=== PATIENT | male | born 1955 | race Caucasian/White ===

== ENCOUNTER 2020-03-29 14:53 | Emergency (ER) | payer OTHER, SELFPAY ==
[2020-03-29 14:55] VITALS: BP 148/78; PULSE 88; RESP 18; TEMP 36.5; O2SAT 98; BMI 24.8
--- NOTE | 2020-03-29 15:12 | ED.VISSUMM ---
- ER Visit Summary Date of Service: 03/29/20 Chief Complaint: Left hand laceration History of Present Illness: The patient is a 64 M who presents with laceration to his left hand that occurred today. Patient was walking in the [place] when he slipped on wet grass and fell. Patient landed on a piece of elva metal. Patient thinks there is still a piece of metal in the laceration. Patient states his attempted to remove some of it without success. Patient denies any paresthesias or weakness. Patient thinks his last tetanus shot was around 5 to 6 years ago. Patient states the bleeding stopped after a few minutes of pressure. Physical Examination: Vital signs are stable. Patient is afebrile. Patient is in no acute distress. Skin is warm and dry. There is a 2 cm full-thickness linear laceration on the palmar aspect of the left hand near the hyperthenar eminence. There is moderate gapping of the wound margins. There is no active bleeding. There are 2 other superficial abrasions on the palmar aspect of the left hand. There is no bleeding. There is no gapping of those wound margins. Sensation was intact to light touch in all digits. Capillary refill was less than 2 seconds in all digits. Radial pulses are equal bilaterally. Test Results: X-rays of the left hand were obtained. There is metallic foreign body noted on the palmar aspect of the left hand. There is no acute fracture. This was interpreted by myself and the radiologist. Emergency Department Course and Treatment: Patient was given a tetanus booster. The wound was cleaned and irrigated with copious amounts of normal saline. The wound was anesthetized with 1% plain lidocaine locally. The wound was explored. There were some metallic foreign bodies removed. Patient was advised that there still may be some foreign bodies in the wound. Patient was advised that these may work themselves out or there may be some fibrosis around these foreign bodies and they may remain in place. The wound was irrigated more. The wound was closed with 2 loose simple interrupted #4 -0 nylon sutures under sterile technique. Patient tolerated the procedure well. Bacitracin dressing was applied. Patient was given a dose of clindamycin here. Patient was given a prescription for clindamycin. Patient was instructed to keep the hand clean. Patient was instructed to follow-up with his primary care physician in 7 days for wound recheck and suture removal. Patient understood and was agreeable with the plan. All questions were answered. Disposition: Discharge home Impression: 1. Left hand laceration 2. Foreign body left hand This note was generated with [employer] dictation software. It may contain incorrect words, spelling, and punctuation that were not noted in review of the chart prior to signing ED Disposition - Plan for ED Patient: Disposition: Home or Assisted Living Diagnosis: Laceration of left hand, Foreign body of left hand Instructions: ED Laceration Hand Prescriptions: Clindamycin HCl [Cleocin] 300 mg PO Q6H #40 cap Prescription Printed Referrals: Leroy Celaya III, MD [Primary Care Provider] - 7 Days for suture removal
[2020-03-29] MEDS: Diphth,Pertuss(Acell),Tet Vac 0.5 ML Vial IM (15:38)
[2020-03-29] MEDS: BACITRACIN 15 GM Tube 1 APPLIC TOPICAL (15:39)
--- NOTE | 2020-03-29 15:45 | RAD_ITS ---
STUDY: X-RAY - LEFT HAND REASON FOR EXAM: Male, 64 years old. 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 COMPARISON: None. FINDINGS: Normal radiocarpal articulation. Normal distal radioulnar joint. Normal visualized carpal bones. Normal carpal articulations Normal carpometacarpal articulation of the thumb. Normal second through fifth carpometacarpal joints. Normal metacarpi. Normal metacarpophalangeal joint of the thumb. Normal interphalangeal joint of the thumb. Normal proximal and distal phalanges of the thumb. Normal metacarpophalangeal joints of the second through fifth fingers. Normal proximal and distal interphalangeal joints of the second through fifth fingers. Normal phalanges of the second through fifth fingers. A cluster of metallic foreign bodies are present in the palmar soft tissues at the level of the base of the fourth metacarpal. RAD/Hand Min 3 Views IMPRESSION: A cluster of metallic foreign bodies are present in the palmar soft tissues at the level of the base of the fourth metacarpal. No acute osseous injury is evident. Electronically Signed: Blane Motley MD at 17:01 EDT Tel , Service support ,
[2020-03-29 17:05] VITALS: RESP 18; O2SAT 98
--- OUTSIDE RECORDS SUMMARY | 2020-08-27 11:27 | XMS RPT_ITS | CCD ---
:1955 External Reference #:[id number] Author Organization [facility] [employer] Care Team Providers Name Role Phone Unavailable Unavailable Unavailable Results Result Name Value Range Unit Interpretation Flag Date Location progress on 2020-03 PROGRESS HNO ID: [id number] Normal 04-05-2020 [facility] Author: Leroy Saxena III Haiku ([id number]) Service: ? Author Type: Physician Type: Progress Notes Filed: 04/05/2020 9:27 AM Note Text: SUBJECTIVE: This is a 64 year old male that is here today fo r 1. f/u of laceration L hypothenar eminence from puncture wou nd from falling on elva metal on 03/29. Received tetanus booster and antibiotic. PAST MEDICAL HISTORY Diagnosis Date - Esophageal reflux - Mitral regurgitation 01/28/2012 - Mitral valve disorders(424.0) - Polyarticular juvenile rheumatoid arthritis, chronic or un specified - Snoring Current Outpatient Medications on File Prior to Visit Medication Sig - Benzonatate 200 mg capsule Take 1 capsule by mouth three t imes daily as needed. (Patient not taking: Reported on 04/05/2020 ) - albuterol HFA (PROAIR HFA) 90 mcg/actuation inhaler Inhale 2 Puffs as instructed every 4 hours as needed. No current facility-administered medications on file prior t o visit. FAMILY HISTORY Problem Relation Age of Onset - Diabetes Father - Stroke Father - other ([place]) Father - Arthritis Mother - Developmental problem Paternal Grandfather Social History Tobacco Use - Smoking status: Current Every Day Smoker Packs/day: 0.50 Years: 20.00 Pack years: 10.00 Types: Cigarettes Last attempt to quit: 04/11/2012 Years since quittin.9 - Smokeless tobacco: Never Used Substance Use Topics - Alcohol use: Yes Comment: twice a week - Drug use: No BP 144/86 (BP Site: Right Arm, BP Position: Sitting, BP Cuff Size: Regular Adult) Pulse 76 Temp 36.7 ?C (98.1 ?F) (Tympanic ) Resp 14 Wt 85.7 kg (189 lb) BMI 24.94 kg/m? . OBJECTIVE: APPEARANCE Well appearing, alert, in no acute distress, well -hydrated, well nourished. EXTREMITIES L palm-normal color and good circulation. Good h ealing of wound w/o redness or tenderness. 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 Small L olecranon bursa ASSESSMENT: laceration L palm--healed no evidence of infection PLAN: sutures removed--tolerated well Leroy Saxena III MD cnov on 2020-04-05 CNOV Office Visit (FAMPWS) Normal 04-05-20 [facility] LUZ MARIA CASTANO ([id number]) 1955 [facility] Date Time Provider Department ([id number]) 04/05/20 9:00 AM LEROY SAXENA III FAMPWS During your visit today, we recorded the following informati on about you: Temperature Pulse Respiration Blood pressure 98.1 degrees 76/minute 14/minute 144/86 Weight 85.7 kg Leroy Saxena III MD 04/05/2020 9:27 AM Signed SUBJECTIVE: This is a 64 year old male that is here today fo r 1. f/u of laceration L hypothenar eminen ce from puncture wound from falling on elva metal on 03/29. Received tetanus booster and antibiotic . PAST MEDICAL HISTORY Diagnosis Date - Esophageal reflux - Mitral regurgitation 01/28/2012 - Mitral valve disorders(424.0) - Polyarticular juvenile rheumatoid arthritis, chronic or un specified - Snoring Current Outpatient Medications on File Prior to Visit Medication Sig - Benzonatate 200 mg capsule Take 1 capsule by mouth three t imes daily as needed. (Patient not taking: Reported on 04/05/2020 ) - albuterol HFA (PROAIR HFA) 90 mcg/actuation inhaler Inhale 2 Puffs as instructed every 4 hours as needed. No current facility-administered medications on file prior t o visit. FAMILY HISTORY Problem Relation Age of Onset - Diabetes Father - Stroke Father - other ([place]) Father - Arthritis Mother - Developmental problem Paternal Grandfather Social History Tobacco Use - Smoking status: Current Every Day Smoker Packs/day: 0.50 Years: 20.00 Pack years: 10.00 Types: Cigarettes Last attempt to quit: 04/11/2012 Years since quittin.9 - Smokeless tobacco: Never Used Substance Use Topics - Alcohol use: Yes Comment: twice a week - Drug use: No BP 144/86 (BP Site: Right Arm, BP Position: Sitting, BP Cuff Size: Regular Adult) Pulse 76 Temp 36.7 ?C (98.1 ?F) (Tympanic) Resp 14 Wt 85.7 kg (189 lb) BMI 24.94 kg/m? . OBJECTIVE: APPEARANCE Well appearing, alert, in no acute distress, we ll-hydrated, well nourished. EXTREMITIES L palm-normal co aaliyah and good circulation. Good healing of wound w/o redness or tenderness. 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 Small L olecranon bursa ASSESSMENT: laceration L palm--healed no evidence of infection PLAN: sutures removed--tolerated well YADIRA Figueroa MD, III MD 04/05/2020 9:25 AM Signed PLAN: sutures removed--tolerated well Leroy Saxena III MD Referring Provider: SELF [[id number]] Allergies As of Date: 04/05/2020 Noted Allergy Reaction LESCOL (FLUVASTATIN SODIUM) 08/17/2005 Comments: Leg and muscle aches LIPITOR (ATORVASTATIN CALCIUM) 08/17/2005 Comments: Leg and muscle aches NIACIN 03/27/2013 14 - Other: See Comments Comments: past out PENICILLINS 08/17/2005 Date Reviewed: 04/05/2020 Reviewed by: Charlotte Velazquez Ma - Fully Assessed Reason for Visit: Suture Removal [105] Mass [64] Cmt: Patient indicated that he had a lump on lef t elbow x 1 month Primary Visit Diagnosis:Laceration of left hand with foreign body, subsequent encounter [S61.422D] Prescriptions as of 04/05/2020 Sig: BENZONATATE 200 MG CAPSULE Take 1 capsule by mouth three* Patient not taking: Reported on 04/05/2020 ALBUTEROL SULFATE HFA 90 MCG/* Inhale 2 Puffs as instructed * Problem List As Of Date 04/05/2020 Noted Resolved ESOPHAGEAL REFLUX [K21.9] MITRAL VALVE DISORDER [I05.9] DYSMETABOLIC SYNDROME X [E88.81] 08/02/2007 TOBACCO USE DISORDER [F17.200] 08/02/2007 HYPERLIPIDEMIA NEC/NOS [E78.5] 09/09/2007 ENTHESOPATHY, SITE NOS [M77.9] 12/26/2008 Mitral regurgitation [I34.0] 01/28/2012 Epididymitis [N45.1] 04/13/2013 Testalgia [N50.819] 04/13/2013 BPH (benign prostatic hyperplasia) [N40.0] 04/13/2013 Nocturia [R35.1] 04/13/2013 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 This clinical summary was aggregated from multiple sources. Caution should be exercised in using it in the provision of clinical care. This summary normalizes information from multiple sources, and as a consequence, information in this document may materially changethe coding, format and clinical context of patient data. In addition, data may be omittedin some cases. CLINICAL DECISIONS SHOULD BE BASED ON THE PRIMARY CLINICAL RECORDS. [facility] provides no warranty or guarantee of the accuracy or completeness of information in this document. UNRECOGNIZED CONTENT PROVIDED BELOW FOR UNRECOGNIZED SECTION No Status Records Found UNRECOGNIZED CONTENT PROVIDED BELOW FOR UNRECOGNIZED SECTION INFORMATION SOURCE DATE CREATED AUTHOR AUTHOR'S ORGANIZATIO N 04/05/2020 [facility] elizabeth
--- OUTSIDE RECORDS SUMMARY | 2020-08-27 11:29 | XMS RPT_ITS | CCD ---
:1955 External Reference #:[id number] Author Organization [facility] [employer] Care Team Providers Name Role Phone Unavailable Unavailable Unavailable Results Result Name Value Range Unit Interpretation Flag Date Location progress on 2020-03 PROGRESS HNO ID: [id number] Normal 04-05-2020 [facility] Author: Leroy Saxena III Rudy ([id number]) Service: ? Author Type: Physician Type: Progress [...] Diabetes Father - Stroke Father - other ([place]) Father - Arthritis Mother - Developmental problem [...] of wound w/o redness or tenderness. 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 [facility] provides no warranty or guarantee of the accuracy or completeness of information in this document. UNRECOGNIZED CONTENT PROVIDED BELOW FOR UNRECOGNIZED SECTION No Status Records Found UNRECOGNIZED CONTENT PROVIDED BELOW FOR UNRECOGNIZED SECTION INFORMATION SOURCE DATE CREATED AUTHOR AUTHOR'S ORGANIZATIO N 04/05/2020 [facility] elizabeth
== END 2020-03-29 16:45 | disposition home or self-care (01) ==
LOC: ED 16:11
PROVIDERS: Emergency Provider Emergency Medicine; PCP Family Medicine
DX: S61.422A Laceration with foreign body of left hand, initial encounter (principal); S60.512A Abrasion of left hand, initial encounter; W01.0XXA Fall on same level from slipping, tripping and stumbling without subsequent striking against object, initial encounter; Y93.01 Activity, walking, marching and hiking; Y92.9 Unspecified place or not applicable; F17.200 Nicotine dependence, unspecified, uncomplicated
CPT/HCPCS: 12001; 73130; 90471; 90715; 99283

== ENCOUNTER 2024-09-11 17:30 | Outpatient (RCR) | payer SELFPAY | END 2024-09-14 23:59 | LOC: NS 17:30 | DX: Z71.3 Dietary counseling and surveillance (principal) ==

== ENCOUNTER 2024-12-17 12:51 | Inpatient (IN) | payer MEDICARE, OTHER, SELFPAY ==
[2024-12-17] VITALS (16 sets, daily range): BP systolic 99–145; BP diastolic 63–126; PULSE 90–106; RESP 16–30; TEMP 36.1–37.7; O2SAT 81–97; BMI 25.7; BMI 25.0
--- NOTE | 2024-12-17 13:39 | EKG12_ITS ---
Test Reason : GENERAL Blood Pressure : */* mmHG Vent. Rate : 108 BPM Atrial Rate : 108 BPM P-R Int : 200 ms QRS Dur : 88 ms QT Int : 326 ms P-R-T Axes : 75 -28 60 degrees QTcB Int : 436 ms Sinus tachycardia with occasional atrial-paced complexes and Premature atrial complexes Low voltage QRS Possible Inferior infarct , age undetermined Abnormal ECG Confirmed by VALENTINA VAZQUEZ, ALLY ([id number]), editor managing newspaper RISA CHAO ([id number]) on 12/18/2024 8:22:19 AM Referred By: Isai Leal Confirmed By: ALLY MONTGOMERY MD
--- NOTE | 2024-12-17 13:43 | EX.ED.DYSGE1 ---
HPI History of Present Illness Chief Complaint: General Illness Narrative Narrative: Chief complaint and HPI: Flulike symptoms. 69-year-old male with past medical history of HTN presents for evaluation of flulike symptoms. Symptom onset Wednesday. Patient endorses sore throat, general malaise, cough, decreased p.o. intake, diarrhea, and generalized weakness. He denies any fever, chills, chest pain, shortness of breath, abdominal pain, vomiting, dysuria. Review of systems: See HPI Medications: As listed on the chart Allergies: As listed on the chart PFSH: Per chart Vital signs: As listed on the chart. Reviewed. Physical exam: Gen: A&O x3, NAD Head: Normocephalic, atraumatic Eyes: No sclera icterus, conjunctiva clear ENT: dry mucous membranes Neck: Trachea midline, No JVD CV: RRR, no murmurs, no peripheral edema Resp: Lungs CTA BL, no w/r/c GI: Abd soft, non-distended, non-tender, no r/r/g Musc: Full ROM, no deformity Skin: Warm, dry Neuro: Alert, oriented, grossly intact, sensation intact Psych: Cooperative, appropriate mood and affect PFS PFS Home Medications ?Medication ?Instructions ?Recorded ?Last Taken ?Type clindamycin HCl 300 mg capsule 300 mg PO Q6H #40 caps 03/29/20 Unknown Rx Allergy/AdvReac Type Severity Reaction Status Date / Time Penicillins Allergy Unknown Verified 12/17/24 12:58 Nzhyqxw-UZT-AbE Reductase Allergy Other Verified 12/17/24 12:58 Inhibitor (Wqncspk-Neg-Dbw Reductase Inhibitor) Social History Smoking Status: Current every day smoker tobacco type: cigarettes EXAM Physical Exam Const Vital Signs: 12/17/24 12:52 12/17/24 14:16 12/17/24 14:27 Temperature 97 F L 99.5 F H Temperature Source Temporal Oral Pulse Rate 94 106 H Respiratory Rate 20 H 28 H Respiratory Effort Blood Pressure 145/126 H 119/71 Blood Pressure Mean 132 87 Pulse Ox 90 83 91 Oxygen Delivery Method Room Air Room Air Nasal Cannula Oxygen Flow Rate (L/min) 4 12/17/24 14:29 Temperature Temperature Source Pulse Rate Respiratory Rate Respiratory Effort Normal Non-Labored Blood Pressure Blood Pressure Mean Pulse Ox Oxygen Delivery Method Oxygen Flow Rate (L/min) MDM MDM MDM Narrative Medical decision making narrative: 69-year-old male with past medical history of HTN presents for evaluation of flulike symptoms. Differential diagnosis includes but is not limited to influenza, COVID-19, viral illness, electrolyte abnormality, dehydration. NS bolus and Zofran ordered. Laboratory workup ordered including chest x-ray. I do not think any further imaging is needed at this time. EKG reviewed see below. CMP shows hypokalemia 131, hypokalemia of 3.3 and JOSÉ MANUEL with creatinine of 3.94. Another NS bolus ordered. Hunter placed. AST elevated at 107. Magnesium level unremarkable. Chest x-ray reviewed with concern for pneumonia. Patient has allergy to penicillin, Levaquin ordered. Patient positive for influenza A. Tamiflu ordered. Patient requiring 4 L nasal cannula after decreasing to 83% on room air. UA positive for nitrites and leuk esterase but negative for bacteria or WBC. CBC with pancytopenia, I do not have previous labs to compare to. Will add on coagulation panel, lactic acid, blood cultures. Patient and family updated of all the results. Patient will warrant admission. They confirmed understanding the plan. Patient's temperature increasing to 99.5 ?F. Tylenol ordered. Patient admitted to the hospital service. EKG: Interpreted by me/EM physician: EKG shows sinus tachycardia with PACs. No acute ischemic changes. Heart rate 108. Diagnostic: Interpreted by me/EM physician: Chest x-ray shows right lobe opacity. Concern is for pneumonia. No pneumothorax. Impression: 1. Influenza A infection 2. Possible pneumonia 3. JOSÉ MANUEL 4. Pancytopenia 5. Acute hypoxia secondary to #1 and 2 Lab Data Labs: Laboratory Results - last 24 hr 12/17/24 12/17/24 14:10 14:49 WBC 4.0 L RBC 4.04 L Hgb 11.9 L Hct 35.8 L MCV 88.6 MCH 29.5 MCHC 33.2 RDW Std Deviation 46.8 H RDW Coeff of Whit 14.4 Plt Count 101 L MPV 10.6 Immature Gran % (Auto) 0.800 Neut % (Auto) 81.3 H Lymph % (Auto) 12.1 L King % (Auto) 4.0 Eos % (Auto) 0.0 Baso % (Auto) 1.8 H Absolute Neuts (auto) 3.2 Absolute Lymphs (auto) 0.48 L Nucleated RBC % 0 Toxic Granulation 1+ Dohle Bodies 1+ Platelet Estimate SLT DEC Polychromasia 1+ Sodium 131 L Potassium 3.3 L Chloride 97 L Carbon Dioxide 21.0 Anion Gap 13 BUN 68 H Creatinine 3.94 H Estim Creat Clear Calc 20.28 Est GFR (MDRD) Af Amer 20 L Est GFR (MDRD) Non-Af 16 L BUN/Creatinine Ratio 17.3 Glucose 92 Calcium 8.8 Magnesium 2.2 Total Bilirubin 0.70 AST 107 H ALT 42 Alkaline Phosphatase 63 Total Protein 7.8 Albumin 3.1 L Globulin 4.7 H Albumin/Globulin Ratio 0.7 L Urine Color Chrissy Urine Clarity Cloudy Urine pH 5.0 Ur Specific [place] 1.030 Urine Protein 100 H Urine Glucose (UA) Normal Urine Ketones 5 H Urine Occult Blood 150 H Urine Nitrite Positive H Urine Bilirubin 1 H Urine Urobilinogen 1 H Ur Leukocyte Esterase 25 H Urine RBC 0-5 SEEN Urine WBC 0-5 SEEN Ur Squamous Epith Cells 0 SEEN Amorphous Sediment 2+ URATE Urine Bacteria 0 SEEN Urine Mucus 0 SEEN Radiography Diagnostic Testing: Clinical Impression(s) from Imaging Studies Chest X-Ray 12/17/24 14:25 IMPRESSION: As above. Reading Location: [facility] Discharge Plan Triage Chief Complaint: General Illness ED Provider: Isai Leal Dx/Rx/DC Orders Prescriptions: No Action clindamycin HCl 300 MG capsule 300 mg PO Q6H Qty: 40 0RF Primary Care Provider: NOT,DEFINED Referrals: NOT,DEFINED [Primary Care Provider] - Print Language: Cuban
[2024-12-17] MEDS: 0.9% Normal Saline (1000mL) 1,000 ML 1000 ML IV (14:11)
[2024-12-17 14:16] LABS: Absolute Lymphocyte Count 0.48 X10^3/uL (0.83-4.51); Absolute Neutrophil Count 3.2 X10^3/uL (2.0-7.7); Basophil# 0.07 X10^3/uL; Basophil% 1.8 % (0-1); Hematocrit 35.8 % (40-54); Hemoglobin 11.9 g/dL (13.0-16.5); Lymphocyte # 0.48 X10^3/ul (0.83-4.51); Lymphocyte % 12.1 % (19-41); Mean Corp Hgb Conc 33.2 g/dL (32-36); Mean Corpuscular Hgb 29.5 pg (27.0-32.0); Mean Corpuscular Volume 88.6 fL (80-94); Mean Platelet Vol. 10.6 fl (6.2-12.0); Monocyte# 0.16 X10^3/uL; NRBC Flagged by Analyzer 0 % (0-5); Neutrophil # 3.22 X10^3/uL (2.7-7.7); Neutrophil % 81.3 % (47-70); POSITIVE DIFFERENTIAL YES; POSITIVE MORPHOLOGY YES; Platelet Count 101 K/mm3 (150-450); RBC Distribution Width CV 14.4 % (11.6-14.6); RBC Distribution Width SD 46.8 fl (35.1-43.9); Red Blood Count 4.04 M/mm3 (4.6-6.2)
--- NOTE | 2024-12-17 14:25 | RAD_ITS ---
PROCEDURE: CHEST PA AND LATERAL REASON FOR EXAM: Cough TECHNIQUE: Single frontal image including the chest and abdomen. COMPARISON: None. FINDINGS: Prominent heterogeneous airspace opacities throughout the right mid to lower lung zone. Left lung grossly clear. Heart size is enlarged, nonspecific. No pneumothorax. RAD/Chest PA and Lateral IMPRESSION: As above. Reading Location: [facility]
[2024-12-17 14:30] LABS: ALB/GLOB Ratio 0.7 RATIO (0.9-2.4); AST(SGOT) 107 U/L (15-37); Alanine Aminotransfer ALT/SGPT 42 U/L (16-61); Albumin, Serum 3.1 g/dL (3.2-5.0); Alkaline Phosphatase 63 U/L (45-117); Anion Gap 13 (5-15); BUN 68 mg/dL (7-18); BUN/Creat Ratio 17.3 RATIO (10-20); Calcium,Total 8.8 mg/dL (8.5-10.1); Chloride 97 mmol/L (98-107); Creatinine, Serum 3.94 mg/dL (0.70-1.30); EST Glomerular Filtration Rate 16 mL/min (>60); Est Glom Filt Rate - Afr Amer 20 mL/min (>60); Estimated Creatinine Clearance 20.28 ml/min; Globulin 4.7 g/dL (2.2-4.2); Glucose 92 mg/dL (74-106); Magnesium 2.2 mg/dL (1.6-2.6); Potassium 3.3 mmol/L (3.5-5.1); Protein, Total 7.8 g/dL (6.4-8.2); Sodium Level 131 mmol/L (136-145)
[2024-12-17 14:41] LABS: Differential Indicated SCAN CRITERIA MET
[2024-12-17 14:42] LABS: Dohle Bodies 1+; Polychromasia 1+; Toxic Granulation 1+
[2024-12-17 14:43] LABS: Platelet Estimate SLT DEC (ADEQ)
[2024-12-17 14:54] LABS: Bacteria 0 SEEN /hpf (None Seen); Mucous, Urine 0 SEEN /hpf (<or=2+); Squamous Epithelial Cells - UA 0 SEEN /hpf (0-5)
[2024-12-17 14:58] LABS: Color, Urine Amber (Yellow); Glucose, Dipstick Normal (Normal); Ketone-Dipstick 5 mg/dl (Negative); Leukocyte Esterase-Dipstick 25 /ul (Negative); Nitrite-Dipstick Positive (Negative); Occult Blood-Urine 150 /ul (Negative); Protein-Dipstick 100 mg/dl (Negative); Urine Bilirubin Dipstick 1 mg/dL (Negative); Urine Clarity Cloudy (Clear); Urine Urobilinogen 1 mg/dl (Normal)
[2024-12-17 15:06] LABS: Red Blood Cells-Urine 0-5 SEEN /hpf (0-5); White Blood Cells 0-5 SEEN /hpf (0-5)
[2024-12-17 15:07] LABS: Amorphous Sediment 2+ URATE
--- NOTE | 2024-12-17 15:17 | HP.PCM.HOS_ITS ---
HPI - General General Date of Admission: 12/17/24 Date of Service: 12/17/24 Chief Complaint: Flulike symptoms HPI Narrative LUZ MARIA CASTANO, is a 69 M who presented to [facility] ED on 12/17/2024 with symptoms. Found to be positive for influenza A in the ED. No prior records in our system but I was able to find recent notes in [facility]. Patient has history of moderate to severe mitral regurgitation from mitral valve prolapse, follows with cardiology. Last echo in March 2024 showed +3 mitral regurgitation but normal EF and normal LV function. He was not on any medications until about 2 weeks ago when he was started on losartan for high blood pressure by his PCP. Unfortunately there is no prior creatinine values available for him. He denies any known history of kidney disease. In the ED he was mildly hypertensive and mildly tachycardic to the 100s with low-grade fever. He was requiring 4 L nasal cannula to maintain oxygen saturations greater than 90%. Does not wear any home oxygen. Chest x-ray showed prominent heterogenous airspace opacities throughout the right mid and lower lung zones with enlarged heart size. Labs notable for WBC count 4.0, hemoglobin 11.9, MCV 88, platelet count 101, sodium 131, potassium 3.3, chloride 97, creatinine 3.94, BUN 68, bicarb 21. UA showed 100 protein, moderate 50 occult blood, positive nitrites, 25 leukocyte esterase, 0-5 WBCs, 0 bacteria. Patient denies any recent UTI symptoms. Given all these findings, hospitalist was contacted for admission. I saw the patient at bedside in the ED, was present. Patient was fatigued appearing but otherwise sitting back comfortably in bed and in no acute distress. He was breathing comfortably on 4 L nasal cannula at rest. Patient had a flat affect and did appear somewhat confused and lethargic. He was able to answer orientation questions appropriately for me. notes that he is much more lethargic and mentally off from his baseline. Symptoms for him started on Wednesday and progressively worsened. Has had intermittent fevers and chills. He and note significantly reduced urine output. Patient did see a urologist at some point in the past for concern for prostate issues but has not seen him now for a few years per the . No other acute concerns at this time. [facility] Home Medications ?Medication ?Instructions ?Recorded ?Last Taken ?Type losartan 25 mg tablet 25 mg PO DAILY 12/17/24 02/0 12/09 History Allergy/AdvReac Type Severity Reaction Status Date / Time Penicillins Allergy Unknown Verified 12/17/24 12:58 Hwukayr-VUA-IkG Reductase Allergy Other Verified 12/17/24 12:58 Inhibitor (Qovluil-Dek-Vgp Reductase Inhibitor) Social History Smoking Status: Current every day smoker tobacco type: cigarettes ROS Constitutional Constitutional: Reports chills, fatigue, fever(s) and malaise; Denies weakness Eyes Eyes: Denies change in vision Cardiovascular Cardiovascular: Denies chest pain Respiratory/Chest Respiratory/Chest: Reports cough and shortness of breath with exertion; Denies productive cough, shortness of breath at rest or wheezing Gastrointestinal Gastrointestinal: Reports diarrhea and nausea; Denies abdominal pain, constipation or vomiting Genitourinary Genitourinary: Denies dysuria Musculoskeletal Musculoskeletal: Reports myalgias; Denies arthralgias Vital Signs Vital Signs Vital Signs: 12/17/24 12:52 12/17/24 14:16 12/17/24 14:27 Temperature 97 F L 99.5 F H Temperature Source Temporal Oral Pulse Rate 94 106 H Respiratory Rate 20 H 28 H Respiratory Effort Blood Pressure 145/126 H 119/71 Blood Pressure Mean 132 87 Pulse Ox 90 83 91 Oxygen Delivery Method Room Air Room Air Nasal Cannula Oxygen Flow Rate (L/min) 4 12/17/24 14:29 Temperature Temperature Source Pulse Rate Respiratory Rate Respiratory Effort Normal Non-Labored Blood Pressure Blood Pressure Mean Pulse Ox Oxygen Delivery Method Oxygen Flow Rate (L/min) Weight Weight: 89.6 kg Body Mass Index (BMI) 25.7 Physical Exam Const alert, oriented x3, no apparent distress and average body habitus Constitutional Narrative: Upper middle-aged male, fatigued and somewhat lethargic appearing with mild confusion but is alert and oriented x 3, otherwise sitting back comfortably in bed and in no acute distress. General Appearance: cooperative and comfortable Orientation / Consciousness: lethargic HEENT normocephalic, head/scalp atraumatic, hearing grossly normal bilaterally and nasal mucous membranes and turbinates normal HEENT Narrative: Dry mucous membranes. Eyes PERRL, EOMs intact bilaterally and conjunctivae normal Neck full ROM Chest inspection of chest normal Resp normal respiratory effort and no use of accessory muscles Resp Narrative: Breathing comfortably on 4 L nasal cannula at rest. Decreased breath sounds in left lung throughout with crackles noted, no wheezing noted. Cardio peripheral pulses 2+ throughout Cardio Narrative: Tachycardic, regular rhythm. Significant systolic murmur noted at apex. GI normal to inspection, nondistended, normoactive bowel sounds, soft to palpation, non-tender and non-distended Back/Spine normal ROM Extremity normal to inspection, full ROM and no pedal edema Skin no rashes or lesions noted Neuro moves all extremities and no focal motor deficits Psych Psych Narrative: Flat affect. Results Lab / Micro Data 12/17/24 14:10 12/17/24 14:10 Labs: Laboratory Results - last 24 hr 12/17/24 14:10: WBC 4.0 L, RBC 4.04 L, Hgb 11.9 L, Hct 35.8 L, MCV 88.6, MCH 29.5, MCHC 33.2, RDW Std Deviation 46.8 H, RDW Coeff of Whit 14.4, Plt Count 101 L, MPV 10.6, Immature Gran % (Auto) 0.800, Neut % (Auto) 81.3 H, Lymph % (Auto) 12.1 L, [place] % (Auto) 4.0, Eos % (Auto) 0.0, Baso % (Auto) 1.8 H, Absolute Neuts (auto) 3.2, Absolute Lymphs (auto) 0.48 L, Nucleated RBC % 0, Toxic Granulation 1+, Dohle Bodies 1+, Platelet Estimate SLT DEC, Polychromasia 1+, Sodium 131 L, Potassium 3.3 L, Chloride 97 L, Carbon Dioxide 21.0, Anion Gap 13, BUN 68 H, C reatinine 3.94 H, Estim Creat Clear Calc 20.28, Est GFR (MDRD) Af Amer 20 L, Est GFR (MDRD) Non-Af 16 L, BUN/Creatinine Ratio 17.3, Glucose 92, Calcium 8.8, Magnesium 2.2, Total Bilirubin 0.70, AST 107 H, ALT 42, Alkaline Phosphatase 63, Total Protein 7.8, Albumin 3.1 L, Globulin 4.7 H, Albumin/Globulin Ratio 0.7 L 12/17/24 14:49: Urine Color Chrissy, Urine Clarity Cloudy, Urine pH 5.0, Ur Specific Boyd 1.030, Urine Protein 100 H, Urine Glucose (UA) Normal, Urine Ketones 5 H, Urine Occult Blood 150 H, Urine Nitrite Positive H, Urine Bilirubin 1 H, Urine Urobilinogen 1 H, Ur Leukocyte Esterase 25 H, Urine RBC 0-5 SEEN, Urine WBC 0-5 SEEN, Ur Squamous Epith Cells 0 SEEN, Amorphous Sediment 2+ URATE, Urine Bacteria 0 SEEN, Urine Mucus 0 SEEN Micro: Microbiology 12/17/24 14:10 Mucosa - Nose SARS-CoV-2, Influenza & RSV (PCR) - Final Influenzae A Imaging Radiology Impression Chest X-Ray 12/17/24 14:25 IMPRESSION: As above. Reading [facility] Assessment & Plan Assessment/Plan (1) Influenza A: (2) Hypoxia: (3) JOSÉ MANUEL (acute kidney injury): PLAN: Plan Patient is a 69-year-old male who presented [facility] ED on 12/17/2024 with flulike symptoms. 1. Influenza A infection with acute hypoxia ? Admit under inpatient status to PCU. Flu A positive on admit. Chest x-ray showed prominent airspace opacities throughout the right mid to lower lung zone, clear lung rios on left. Requiring 4 L nasal cannula to maintain oxygen saturations greater than 90%. Procalcitonin ordered. Sputum culture, strep and Legionella urine antigens ordered. Suspect lung findings and hypoxia are from flu, mitral regurg and mild excess pulmonary fluid from poor fluid clearance by the kidneys. However, cannot rule out secondary bacterial pneumonia. No wheezing on exam. Will treat with IV Levaquin and Tamiflu for now. Wean supplemental oxygen as able. 2. Severe JOSÉ MANUEL with dehydration and concern for uremia ? Creatinine 3.94, BUN 68 on admit. No baseline creatinine available. Patient very dehydrated appearing on exam. Also lethargic and somewhat confused which could be secondary to some degree of uremia. Was recently started on losartan and this very likely is contributing to JOSÉ MANUEL. Given IV fluids in the ED, follow- up a.m. BMP and monitor urine output. Hunter catheter placed in the ED. Renal/bladder ultrasound ordered to evaluate for postobstructive causes. Urine sodium and creatinine also ordered. 3. Moderate to severe mitral valve regurgitation due to mitral valve prolapse ? Follows with outpatient cardiology. Last echo in March 2024 showed +3 mitral regurg due to prolapse but LV systolic function and size were normal. BNP ordered. Repeat echo ordered as well. 4. Mild hyponatremia ? Sodium 131 on admit. Presume secondary to dehydration. Given IV fluids in the ED, follow-up a.m. sodium level. 5. Mild hypokalemia ? Potassium 3.3 on admit. Magnesium normal, Phos ordered. Suspect secondary to dehydration and some fluid losses from reported diarrhea. Will replete as needed. 6. Mild normocytic anemia ? Hemoglobin 11.9, MCV 88 on admit. No baseline values available. Iron studies, folate and B12 ordered for further evaluation. 7. Thrombocytopenia ? Platelet count 101 on admit, no baseline available. Monitor. 8. Concern for acute cystitis ? UA with positive nitrites and 25 leukocyte esterase but 0 bacteria. Follow-up urine culture. Follow-up renal/bladder ultrasound. Treating with Levaquin for now as noted above. 9. History of hypertension ? Was started on losartan by PCP about 2 weeks ago. Hold losartan given JOSÉ MANUEL. 10. Former tobacco use ? Encouraged continued cessation. DVT prophylaxis: Heparin subcu CODE STATUS: DNR CCA, okay to intubate Expected disposition: TBD Total clinical time spent by myself addressing the patient's medical issues, reviewing all the data, and collaborating with patient's care team: 75 minutes. Charges/Coding Visit Charges Inpatient E&M: 59015 Init Hosp L3
[2024-12-17] MEDS: NORMAL SALINE 999 ML IV (15:51)
[2024-12-17] MEDS: Acetaminophen 325 MG Tablet 650 MG PO (15:51)
[2024-12-17] MEDS: Oseltamivir Phosphate 75 MG Capsule PO (15:51)
[2024-12-17] MEDS: levoFLOXacin IV 750 MG/150 ML BAG 100 MG IV (15:52)
[2024-12-17 15:54] LABS: Partial Thromboplast Time 31.2 Seconds (24.1-36.2); Prothrombin Time (Protime)PT. 13.2 SECONDS (11.7-14.9)
[2024-12-17 16:04] LABS: Lactic Acid 1.8 mmol/L (0.4-1.9)
--- NOTE | 2024-12-17 16:32 | ECHOD_ITS ---
Reason For Study: CHF Procedure This was a 2D Doppler, Color Flow transthoracic echocardiogram. Patient scanned sitting up due to SOB. Exam performed portable in patient room. Left Ventricle Normal LV size. The left ventricular ejection fraction is 55 %. Stage 1 diastolic dysfunction. No regional wall motion abnormalities noted. Right Ventricle Normal RV size. Normal systolic function. Atria The left atrium is mildly enlarged. Normal right atrium. Mitral Valve Normal mitral valve. Tricuspid Valve The tricuspid valve is not well visualized. Aortic Valve Trisinus/trileaflet aortic valve. Pulmonic Valve Normal pulmonic valve. Great Vessels Normal aortic root. The pulmonary artery is normal size. Inferior vena cava collapse with respiration. Pericardium/Pleural Small (<1.0 cm) pericardial effusion. There are no echocardiographic indications of cardiac tamponade. Focal area in the subcostal region with moderate effusion. MMode/2D Measurements & Calculations LVIDd: 5.1 cm IVSd: 1.7 cm Ao root diam: 3.7 cm LVIDs: 3.2 cm LVPWd: 1.2 cm RVDd: 3.3 cm FS: 37.2 % _ LAV(MOD-bp): 72.3 ml LVAd ap4: 36.8 cm2 SV(MOD- sp4): 68.3 ml LAV(MOD-bp) Indexed: 34.2 ml/m2 LVLd ap4: 9.3 cm SI(MOD- sp4): 32.3 ml/m2 LAV(MOD-sp2): 68.5 ml EDV(MOD-sp4): 118.7 ml LAV(MOD-sp4): 71.0 ml EDV(sp4-el): 123.4 ml LVAs ap4: 21.6 cm2 LVLs ap4: 7.8 cm ESV(MOD-sp4): 50.5 ml ESV(sp4-el): 51.0 ml EF(MOD-sp4): 57.5 % EF(sp4-el): 58.7 % _ SV(sp4-el): 72.4 ml LA A4 area: 23.7 cm2 LA dimension(2D): 3.8 cm _ RA A4 area: 15.4 cm2 TAPSE: 1.4 cm Time Measurements MV dec time: 0.24 sec Doppler Measurements & Calculations MV E max tyrese: 86.0 cm/sec Lat Peak E' Tyrese: 9.1 cm/sec Med Peak E' Tyrese: 11.8 cm/sec MV A max tyrese: 104.3 cm/sec E/E' lat: 9.5 E/E' med: 7.3 MV E/A: 0.82 _ MV V2 max: 119.4 cm/sec MV P1/2t max tyrese: 102.5 cm/sec Ao V2 max: 169.9 cm/sec MV max P.7 mmHg MV P1/2t: 82.6 msec Ao max P.6 mmHg MV V2 mean: 78.7 cm/sec Ao V2 mean: 122.5 cm/sec MV mean P.8 mmHg MV dec slope: 363.5 cm/sec2 Ao mean P.8 mmHg MV V2 VTI: 27.0 cm MVA(P1/2t): 2.7 cm2 Ao V2 VTI: 27.8 cm AV (velocity ratio): 0.65 _ LV V1 max: 101.2 cm/sec MR max tyrese: 346.6 cm/sec PA V2 max: 93.0 cm/sec LV V1 max P.1 mmHg MR max P.1 mmHg LV V1 mean P.5 mmHg LV V1 mean: 73.9 cm/sec LV V1 VTI: 18.0 cm ECHO/Echo Complete Interpretation Summary Normal LV size. The left ventricular ejection fraction is 55 %. Stage 1 diastolic dysfunction. Small (<1.0 cm) pericardial effusion. There are no echocardiographic indications of cardiac tamponade. Focal area in the subcostal region with moderate effusion Ordering Physician: Eulalio Davis Referring Physician: Isai Leal Performed By: Isai Delgadillo RCS
[2024-12-17] MEDS: Furosemide 100 MG/10 ML Vial 60 MG IV (17:21)
[2024-12-17 17:34] LABS: Allen Test Positive; Base Excess -5 mmol/L (-2 to +2); Bicarbonate 20.2 mmol/L (22-26); Blood Gas Specimen Type ART; Mode Not entered; O2 Delivery Device Cannula; PO2 55 mmHG (75-100); SITE L Radial; SO2 89 % (95-99); Total Carbon Dioxide 21 mmol/L; pCO2 32.5 mmHg (35-45)
--- NOTE | 2024-12-17 18:11 | PN.HOSP_ITS ---
Hospitalist Note Notified by nursing staff that shortly after arrival to the floor patient was experiencing increased work of breathing with hypoxia on 4 L of cannula. Was increased to high flow at 10 L nasal cannula with oxygen saturations staying in the high 80s. ABG was obtained and showed pH 7.40, pCO2 32 and pO2 55 on high flow. Patient had completed first liter of IV fluids and had to started the second liter at that time. Given his chest x-ray on admit and severe mitral regurg, suspect patient is experiencing some worsening of pulmonary edema. S topped IV fluids and will give 1 dose of IV Lasix 60 mg. Patient okay to remain on high flow if he is comfortable but low threshold to trial BiPAP for him. Okay to remain in the PCU for now. Follow-up a.m. BMP and monitor urine output. Given his medical complexity, may need to consider consulting nephrology and/or cardiology for assistance.
[2024-12-17 19:24] LABS: BNP,B-Type NATRIURETIC PEPTIDE 22.7 pg/mL (0-100)
[2024-12-17 19:39] LABS: Ferritin 544 ng/mL (26-388); Iron 15 ug/dL (65-175); Iron Binding Capacity,Total 243 ug/dL (250-450); PERCENT IRON SATURATION 6.2 % (15.0-55.0); Phosphorus 3.6 mg/dL (2.5-4.9)
[2024-12-17 19:58] LABS: Protein, Urine (Random) 228.1 mg/dL (<11.9); Protein:Creat Ratio 527 mg/g CRE (0-200); Urine Sodium 7 mmol/L (Not Establ.)
[2024-12-17] MEDS: Potassium Chloride Oral Tablet 20 MEQ 40 MEQ PO (20:06)
[2024-12-17] MEDS: Heparin Injection (Vial) 5,000 UNIT/ML VIAL 5000 UNIT SC (20:12)
[2024-12-18] VITALS (32 sets, daily range): BP systolic 105–130; BP diastolic 58–75; PULSE 94–111; RESP 16–29; TEMP 36.6–38.3; O2SAT 86–98
--- NOTE | 2024-12-18 05:40 | CT_ITS ---
PROCEDURE: CHEST WITHOUT CONTRAST REASON FOR EXAM: Hypoxia TECHNIQUE: Axial CT images of the chest performed without IV contrast enhancement. Sagittal and coronal reconstructed images were performed for better visualization of the horizontal structures. COMPARISON: Chest x-ray dated 12/17/2024 FINDINGS: Hardware: None. Lymph nodes: Mediastinal and right hilar adenopathy, largest right paratracheal lymph node measures 2.1 by 1.2 cm subcarinal lymph node measures 2.0 x 1.1 cm. Heart and Vasculature: Normal in size. Pericardial effusion measuring up to 1.4 cm in greatest thickness. No thoracic aortic aneurysm is identified. Mild vascular calcifications within the aortic arch. Mild coronary artery calcifications. Lungs and Airways: Respiratory motion artifact. Diffuse scattered airspace consolidation bilaterally, with air bronchograms. Hazy reticular subcentimeter nodules scattered throughout the right lung. Additional ground-glass opacities within the upper lobes. . Pleura: Small bilateral pleural effusions. No pneumothorax. Upper Abdomen: Visualized portions of the upper abdominal viscera are unremarkable. Bones: Bone windows are unremarkable. CT/Chest without Contrast IMPRESSION: 1. Diffuse scattered airspace consolidations with air bronchograms bilaterally. Superimposed ground-glass opacities within the upper lobes and hazy reticular nodules throughout the right lung. Correlate fo r an infectious or inflammatory process. Follow-up to resolution recommended. 2. Small bilateral pleural effusions. 3. Mediastinal and right hilar adenopathy, with measurements provided above. 4. Pericardial effusion, measuring up to 1.4 cm in greatest thickness 5. Additional findings, as above One or more dose reduction techniques were used (e.g., Automated exposure contr ol, adjustment of the mA and/or kV according to patient size, use of iterative reconstruction technique). Reading Location: [facility]
--- NOTE | 2024-12-18 06:00 | US_ITS ---
PROCEDURE: KIDNEY AND BLADDER REASON FOR EXAM: Acute kidney injury. TECHNIQUE: Bilateral renal ultrasound. COMPARISON: None. FINDINGS: Normal renal sizes, parenchymal thicknesses, and echotextures. No hydronephrosis. No cysts or large solid renal masses. RIGHT Kidney Size: 11.9 cm x 5.6 cm x 4.6 cm Cortical Thickness (if discernible): 1.6 (>6mm is normal) LEFT Kidney Size: 11.1 cm x 5.2 cm x 5.4 cm Cortical Thickness (if discernible): 1.5 (>6mm is normal) Bladder: A Hunter catheter is seen within a decompressed urinary bladder. Incidental note is made of splenomegaly. The spleen measures 13.1 cm x 5.1 cm x 6 cm. US/Kidney and Bladder IMPRESSION: NORMAL RENAL ULTRASOUND Reading Location: [place] [id number]
[2024-12-18] MEDS: Acetaminophen 325 MG Tablet 650 MG PO ×3 (06:03→22:34)
[2024-12-18 06:20] LABS: Allen Test Positive; Base Excess -7 mmol/L (-2 to +2); Bicarbonate 18.2 mmol/L (22-26); Blood Gas Specimen Type ART; Mode Not entered; O2 Delivery Device HFNC; PO2 70 mmHG (75-100); SITE R Radial; SO2 94 % (95-99); Total Carbon Dioxide 19 mmol/L; pCO2 30.1 mmHg (35-45); pH 7.39 (7.35-7.45)
[2024-12-18] MEDS: Vancomycin HCl 2,000 MG in 0.9% Normal Saline (500mL Bag) 500 ML 250 MG IV (06:37)
[2024-12-18 06:42] LABS: Hematocrit 31.3 % (40-54); Hemoglobin 10.8 g/dL (13.0-16.5); Mean Corp Hgb Conc 34.5 g/dL (32-36); Mean Corpuscular Hgb 30.1 pg (27.0-32.0); Mean Corpuscular Volume 87.2 fL (80-94); Mean Platelet Vol. 10.9 fl (6.2-12.0); POSITIVE COUNT YES; Platelet Count 98 K/mm3 (150-450); RBC Distribution Width CV 14.3 % (11.6-14.6); RBC Distribution Width SD 45.9 fl (35.1-43.9); Red Blood Count 3.59 M/mm3 (4.6-6.2); White Blood Count 2.7 K/mm3 (4.4-11.0)
[2024-12-18] MEDS: Heparin Injection (Vial) 5,000 UNIT/ML VIAL 5000 UNIT SC ×3 (06:49→19:35)
[2024-12-18 06:57] LABS: D-Dimer Quantitative (DVT/PE) 2.31 FEU/ug/m (0.27-0.49)
[2024-12-18 07:04] LABS: Lactic Acid 1.2 mmol/L (0.4-1.9)
[2024-12-18 07:12] LABS: Scan Indicated on CBC? Y/N NO
[2024-12-18 07:19] LABS: Anion Gap 11 (5-15); BUN 71 mg/dL (7-18); BUN/Creat Ratio 22.5 RATIO (10-20); Calcium,Total 8.7 mg/dL (8.5-10.1); Chloride 104 mmol/L (98-107); Creatinine, Serum 3.16 mg/dL (0.70-1.30); EST Glomerular Filtration Rate 21 mL/min (>60); Est Glom Filt Rate - Afr Amer 25 mL/min (>60); Estimated Creatinine Clearance 25.28 ml/min; Glucose 90 mg/dL (74-106); Potassium 3.5 mmol/L (3.5-5.1); Sodium Level 133 mmol/L (136-145)
--- NOTE | 2024-12-18 07:56 | PCM.RX.CS ---
Consult Antibiotic Management Pharmacy has been consulted to manage selected antibiotic: Vancomycin Type of Intervention Type of Consult: New start Suspected Infection Suspected Infection: Other Labs Labs: Sodium 133 mmol/L (136-145) L 12/18/24 06:22 Potassium 3.5 mmol/L (3.5-5.1) 12/18/24 06:22 Chloride 104 mmol/L (98-107) 12/18/24 06:22 Carbon Dioxide 19.0 mmol/L (21.0-32.0) L 12/18/24 06:22 Anion Gap 11 (5-15) 12/18/24 06:22 BUN 71 mg/dL (7-18) H 12/18/24 06:22 Creatinine 3.16 mg/dL (0.70-1.30) H 12/18/24 06:22 Est GFR (MDRD) Af Amer 25 mL/min (>60) L 12/18/24 06:22 Est GFR (MDRD) Non-Af 21 mL/min (>60) L 12/18/24 06:22 BUN/Creatinine Ratio 22.5 RATIO (10-20) H 12/18/24 06:22 Glucose 90 mg/dL (74-106) 12/18/24 06:22 Microbiology Microbiology: Microbiology 12/17/24 15:35 Blood Culture (Wb) - Left Forearm Blood Culture - Preliminary 12/17/24 15:35 Blood Culture (Wb) - Anticubital Right Blood Culture - Preliminary 12/17/24 14:49 Urine, Clean Catch Legionella Antigen - Final 12/17/24 14:49 Urine, Clean Catch Streptococcus pneumoniae Antigen (M - Final 12/17/24 14:10 Mucosa - Nose SARS-CoV-2, Influenza & RSV (PCR) - Final Influenzae A Estimated Creatinine Clearance Estimated Creatinine Clearance: 20.3 Goal Trough Goal Trough: 15-20 mcg/mL Pharmacy Plan for Drug Dosing Pharmacy Plan for Drug Dosing: NEW START IV VANCOMYCIN Consulting Physician: Dr. Talbert Indication: Empiric Goal Trough: 15-20 SrCr: 3.94 (12/17/24) CrCl: 20.3 Comments: Loading dose 2000mg x1 given @ 06:37 12/18/24 Vancomycin Dose: 750mg Q24H to start @ 07:00 12/19/24 Pending Level: 12/21/24 @ 06:30 Pharmacy Service will continue to monitor and adjust dosing as required. Follow-Up Labs Follow-Up Labs: Trough: Vancomycin (12/21/24 @ 06:30)
--- NOTE | 2024-12-18 09:07 | NM_ITS ---
PROCEDURE: LUNG SCAN VENT/PERF REASON FOR EXAM: Bacterial infection. Pulmonary infiltrates. TECHNIQUE: Nuclear medicine V/Q scan using 4.6 mCi Tc-99m MAA intravenously for perfusion imaging and 50 mCi Tc-99m DTPA aerosol for ventilation imaging. Anterior, posterior, right and left lateral, MCGINNIS, SWAZI, RPO, and LPO ventilation and perfusion images. COMPARISON: None. Comparison is made with prior CT scan of the thorax dated December 18, 2024. 4.6 FINDINGS: Ventilation images: There is evidence of airway disease. Perfusion images: No suspicious perfusion defects. NM/Lung Scan Vent/Perf IMPRESSION: LOW PROBABILITY OF ACUTE PULMONARY EMBOLISM. Ventilatory defects suggestive of airways disease. Reading [facility]
--- NOTE | 2024-12-18 09:07 | VDLE_ITS ---
Reason For Study: Elevated D-Dimer RIGHT LEFT GSV is normal. GSV is normal. CFV is compressible, spontaneous, phasic, CFV is compressible, spontaneous, phasic, competent and demonstrates normal competent, and demonstrates normal augmentation. augmentation. FV is compressible, phasic, and INCOMPETENT FV is compressible, spontaneous, phasic, for greater than 1.0 second. competent and demonstrates normal POP V is compressible, phasic, and augmentation. INCOMPETENT for greater than 1.0 second. POP V is compressible, spontaneous, phasic, T/P Trunk is compressible. competent and demonstrates normal PTV is compressible. augmentation. RT PerV is compressible. T/P Trunk is compressible. Procedure PTV is compressible. This is a venous duplex using B-mode, color LT PerV is compressible. flow and spectral Doppler. Exam performed portable in patient room. A preliminary report was called and/or faxed to Dinora ABBASI. VL/Venous Duplex US - Anup Extrem Interpretation Summary Deep veins of the lower extremities are bilaterally patent and compressible seg mentally. There is no evidence of deep vein thrombosis on either side. Valvular incompetence is noted in the right femoral vein and popliteal vein. Valvular competence appears intact within the proximal deep venous system on the left . The great saphenous veins appear bilaterally patent and compressi ble segmentally. Ordering Physician: Chavo Butler Performed By: Judy Waters, GEO, RVT
[2024-12-18 10:25] LABS: Lactic Acid 1.3 mmol/L (0.4-1.9)
[2024-12-18] MEDS: Oseltamivir Phosphate 30 MG Capsule PO (11:27)
--- NOTE | 2024-12-18 11:28 | PCM.PN.HOSP ---
Reason for Visit Reason for Visit: Diagnoses Influenza due to other identified influenza virus with other respiratory manifestations (12/17/24) Acute kidney failure, unspecified (12/17/24) Hypoxemia (12/17/24) Subjective Subjective Patient is a 69-year-old male who presented [facility] ED on 12/17/2024 with flulike symptoms. Objective Data Objective Data Vital Signs: Vital Signs Temp Pulse Resp BP Pulse Ox O2 Del Method O2 Flow Rate 98.2 F 99 22 H 108/65 92 Non-Rebreather 15 12/18/24 11:12/18/24 11:12/18/24 11:12/18/24 11:12/18/24 11:12/18/24 11:12/18/24 11: FiO2 80 12/18/24 09:08 Oxygen Flow Rate (L/min) 15 Oxygen Delivery Method Non-Rebreather Weight: 87.4 kg Body Mass Index (BMI) 25.0 Intake & Output: Intake and Output for Last 24 Hours 12/16/24 12/17/24 12/18/24 23:59 23:59 23:59 Intake Total 2300 / 2500 300 / 300 Output Total 175 / 725 750 / 750 Balance 2125 / 1775 -450 / -450 Lab / Micro Data 12/18/24 06:22 12/18/24 06:22 Labs: Laboratory Results - last 24 hr 12/17/24 14:10: WBC 4.0 L, RBC 4.04 L, Hgb 11.9 L, Hct 35.8 L, MCV 88.6, MCH 29.5, MCHC 33.2, RDW Std Deviation 46.8 H, RDW Coeff of Whit 14.4, Plt Count 101 L, MPV 10.6, Immature Gran % (Auto) 0.800, Neut % (Auto) 81.3 H, Lymph % (Auto) 12.1 L, [place] % (Auto) 4.0, Eos % (Auto) 0.0, Baso % (Auto) 1.8 H, Absolute Neuts (auto) 3.2, Absolute Lymphs (auto) 0.48 L, Nucleated RBC % 0, Toxic Granulation 1+, Dohle Bodies 1+, Platelet Estimate SLT DEC, Polychromasia 1+, Sodium 131 L, Potassium 3.3 L, Chloride 97 L, Carbon Dioxide 21.0, Anion Gap 13, BUN 68 H, Creatinine 3.94 H, Estim Creat Clear Calc 20.28, Est GFR (MDRD) Af Amer 20 L, Est GFR (MDRD) Non-Af 16 L, BUN/Creatinine Ratio 17.3, Glucose 92, Calcium 8.8, Phosphorus 3.6, Magnesium 2.2, Iron 15 L, TIBC 243 L, Iron Saturation 6.2 L, Ferritin 544 H, Total Bilirubin 0.70, AST 107 H, ALT 42, Alkaline Phosphatase 63, B-Natriuretic Peptide 22.7, Total Protein 7.8, Albumin 3.1 L, Globulin 4.7 H, Albumin/Globulin Ratio 0.7 L, Folate 15.40, TSH 87.100 H 12/17/24 14:49: Urine Color Chrissy, Urine Clarity Cloudy, Urine pH 5.0, Ur Specific [place] 1.030, Urine Protein 100 H, Urine Glucose (UA) Normal, Urine Ketones 5 H, Urine Occult Blood 150 H, Urine Nitrite Positive H, Urine Bilirubin 1 H, Urine Urobilinogen 1 H, Ur Leukocyte Esterase 25 H, Urine RBC 0-5 SEEN, Urine WBC 0-5 SEEN, Ur Squamous Epith Cells 0 SEEN, Amorphous Sediment 2+ URATE, Urine Bacteria 0 SEEN, Urine Mucus 0 SEEN, U Random Total Protein 228.1 H, Ur Random Sodium 7, Urine Creatinine 433.00, Protein/Creatinin Ratio 527 H 12/17/24 15:35: PT 13.2, INR 1.0, APTT 31.2, Lactic Acid 1.8 12/18/24 06:22: WBC 2.7 L, RBC 3.59 L, Hgb 10.8 L, Hct 31.3 L, MCV 87.2, MCH 30.1, MCHC 34.5, RDW Std Deviation 45.9 H, RDW Coeff of Whit 14.3, Plt Count 98 L, MPV 10.9, D-Dimer Quant (PE/DVT) 2.31 H*, Sodium 133 L, Potassium 3.5, Chloride 104, Carbon Dioxide 19.0 L, Anion Gap 11, BUN 71 H, Creatinine 3.16 H, Estim Creat Clear Calc 25.28, Est GFR (MDRD) Af Amer 25 L, Est GFR (MDRD) Non-Af 21 L, BUN/Creatinine Ratio 22.5 H, Glucose 90, Lactic Acid 1.2, Calcium 8.7 12/18/24 09:06: Lactic Acid 1.3 Micro: Microbiology 12/17/24 15:35 Blood Culture (Wb) - Anticubital Right Bacteria Detection (PCR) - Final Streptococcus pneumoniae 12/17/24 15:35 Blood Culture (Wb) - Anticubital Right Blood Culture - Final 12/17/24 15:35 Blood Culture (Wb) - Left Forearm Blood Culture - Preliminary 12/17/24 14:49 Urine, Clean Catch Legionella Antigen - Final 12/17/24 14:49 Urine, Clean Catch Streptococcus pneumoniae Antigen (M - Final 12/17/24 14:10 Mucosa - Nose SARS-CoV-2, Influenza & RSV (PCR) - Final Influenzae A ABG Data ABG results: ABG 12/17/24 12/18/24 17:31 06:16 Specimen Type ART ART Sample Site L Radial R Radial pH 7.40 7.39 Bicarbonate Actual 20.2 L 18.2 L Total CO2 21 19 Base Excess -5 L -7 L O2 Saturation 89 L 94 L O2 % 10.0 80.0 ABG pCO2 32.5 L 30.1 L ABG pO2 55 L 70 L Deondre Test Positive Positive O2 Delivery Device Cannula HFNC Vent Mode Not entered Not entered Radiography Diagnostic Testing: Radiology Impression Chest X-Ray 12/17/24 14:25 IMPRESSION: As above. Reading Location: [facility] Echocardiogram 12/17/24 16:32 Interpretation Summary Normal LV size. The left ventricular ejection fraction is 55 %. Stage 1 diastolic dysfunction. Small (<1.0 cm) pericardial effusion. There are no echocardiographic indications of cardiac tamponade. Focal area in the subcostal region with moderate effusion Ordering Physician: Eulalio Davis Referring Physician: Isai Leal Performed By: Isai Delgadillo RCS Chest CT 12/18/24 05:40 IMPRESSION: 1. Diffuse scattered airspace consolidations with air bronchograms bilaterally. Superimposed ground-glass opacities within the upper lobes and hazy reticular nodules throughout the right lung. Correlate for an infectious or inflammatory process. Follow-up to resolution recommended. 2. Small bilateral pleural effusions. 3. Mediastinal and right hilar adenopathy, with measurements provided above. 4. Pericardial effusion, measuring up to 1.4 cm in greatest thickness 5. Additional findings, as above One or more dose reduction techniques were used (e.g., Automated exposure control, adjustment of the mA and/or kV according to patient size, use of iterative reconstruction technique). Reading Location: [employer] Renal Ultrasound 12/18/24 06:00 IMPRESSION: NORMAL RENAL ULTRASOUND Reading Location: [facility] Physical Exam Narrative GENERAL: cooperative but appears ill looking HEENT: Atraumatic; normocephalic EYES; Anicteric, Normal Conjunctiva NECK; supple, normal thyroid, RESPIRATORY: Diminished to auscultation CARDIOVASCULAR: Regular S1 S2, GI: soft, normoactive bowel sounds, : No Renal angle tenderness; EXTREMITIES: No edema, no clubbing, MUSCULOSKELETAL: no muscle wasting NEURO: Awake; no lateralizing signs. SKIN: No Rash PSYCH; Flat affect Assessment & Plan Assessment/Plan (1) Influenza A: (2) Hypoxia: (3) JOSÉ MANUEL (acute kidney injury): PLAN: Plan Patient is a 69-year-old male who presented [facility] ED on 12/17/2024 with flulike symptoms. 1. Acute hypoxic respiratory failure ? Secondary to acute influenza A infection with superimposed pneumonia. Patient started on noninvasive ventilation admitted to a monitored bed with treatment of the underlying clinical etiology 2. Acute influenza A infection ? Patient was started on Tamiflu 3. Pneumonia - secondary to streptococcal pneumonia, Blood and sputum cultures sent. Patient blood cultures came back positive for streptococcal pneumonia. Patient had been started on Levaquin on admission we will continue 4. Acute kidney injury ? Secondary to prerenal azotemia from severe dehydration patient started on IV hydration with subsequent monitoring of electrolytes ordered. As part of his management renal ultrasound was ordered 5. Mild hyponatremia ? Secondary to hypovolemic hyponatremia started on IV hydration with subsequent monitoring of electrolytes ordered 6. Moderate to severe mitral valve regurgitation due to mitral valve prolapse ? Follows with outpatient cardiology. Last echo in March 2024 showed +3 mitral regurg due to prolapse but LV systolic function and size were normal. BNP ordered. Repeat echo ordered as well. 7. Hypokalemia -Corrected per protocol 8. Pericardial effusion ? Found on CT of the chest. An echo was ordered for subsequent evaluation. 2D echo did show Normal LV size. The left ventricular ejection fraction is 55 %. Stage 1 diastolic dysfunction. Small (<1.0 cm) pericardial effusion. There are no echocardiographic indications of cardiac tamponade. Focal area in the subcostal region with moderate effusion. 8. Anemia ? Secondary to chronic disorder monitoring H&H and transfuse if patient becomes symptomatic or hemoglobin falls below 7 9. Mild thrombocytopenia ? Platelet count on admission was 101. Monitoring with daily CBC with differential 10. Acute cystitis ? Patient started on Levaquin 11. Hypertension ? Patient had recently been started on losartan this was discontinued given his impaired kidney function subsequently ordered hydralazine 12. DVT prophylaxis ? Patient was started on subcu heparin will monitor closely given patient low platelet count on admission Time spent in the patient's overall evaluation,decision-making process, review of diagnostic data, adjustment of management, discussion with other providers, nursing nursing and ancillary staff involved in patient's care documentation, 55 Minutes Charges/Coding Visit Charges Inpatient E&M: 90458 [facility] L3
--- NOTE | 2024-12-18 13:30 | CASEMGMT ---
RN CM Face to Face with patient for initial transition planning/care coordination assessment. RN CM introduced self and role at [facility]. Patient lying in bed, alert and oriented. Patient willing to participate in assessment and is able to answer all questions appropriately. Care providers, pharmacy, and demographics verified. Strata: 1 PCP: Brandie Perera [facility] Specialists: Orion, community outreach coordinator Preferred Pharmacy: [facility] Insurance: [facility], MMO Prescription Benefit: yes Living Will/HPOA: yes, Latoya Shah HPOA LNOK: Living Arrangements: Patient lives with in a single story home with 2 steps and grab bar to enter the home. Patient is independent at home Transportation: self, DME/HHC: Patient denies DME in the home. No previous HHC or SNF. Will monitor for home oxygen, prefers [employer]. Patient wishes to discharge home, denies need for home health at this time. Patient states he has no further needs or concerns at this time. CM to follow for discharge planning needs that may arise. Disposition Plan: Patient to discharge home with family support and follow-up plans in place. Will monitor for home oxygen. Jerri TRAN, RN, CM
[2024-12-18 15:23] LABS: Procalcitonin 37.96 ng/mL (0.00-0.09); Vitamin B12 325 pg/mL (211-911)
[2024-12-18] MEDS: MELATONIN 3 MG TABLET PO (22:34)
[2024-12-19] VITALS (30 sets, daily range): BP systolic 91–119; BP diastolic 53–78; PULSE 84–127; RESP 17–30; TEMP 36.3–38.1; O2SAT 92–100
--- NOTE | 2024-12-19 00:47 | EKG12_ITS ---
Test Reason : POSSIBLE A-FIB Blood Pressure : */* mmHG Vent. Rate : 123 BPM Atrial Rate : * BPM P-R Int : * ms QRS Dur : 92 ms QT Int : 268 ms P-R-T Axes : * -42 66 degrees QTcB Int : 383 ms Atrial fibrillation with rapid ventricular response Left axis deviation Low voltage QRS Abnormal ECG When compared with ECG of 17-Dec-2024 14:10, Atrial fibrillation has replaced Electronic atrial pacemaker Confirmed by VALENTINA VAZQUEZ, ALLY ([id number]), scientific editor MARTA HILTON ([id number]) on 12/19/2024 8:57:01 AM Referred By: Isai Leal Confirmed By: ALLY MONTGOMERY MD
--- NOTE | 2024-12-19 01:03 | PCM.HOSP.N ---
Hospitalist Note Patient with appearance of possible PAF RVR on monitor, EKG obtained with similar appearance of PAF RVR with rate 120s. No history prior. BP with SBP 90s. Will trial amiodarone bolus x 1, if effective will consider drip pending response if needed. ECHO already obtained and reviewed. Will obtain mag, TSH. Will place on oral eliquis pending further evaluation to be cautious. D/C SC heparin.
[2024-12-19] MEDS: Amiodarone 150 MG in Dextrose 5%-Water (100mL Bag) 100 ML 600 MG IV BOLUS (02:12)
[2024-12-19] MEDS: Amiodarone 360 MG in Dextrose 5% Viaflo Bag 192.8 ML 16.7 MG CONT INF (02:55)
[2024-12-19] MEDS: Vancomycin HCl 750 MG in 0.9% Normal Saline (250mL Bag) 250 ML 250 MG IV (06:03)
[2024-12-19 07:55] LABS: Magnesium 2.6 mg/dL (1.6-2.6)
[2024-12-19] MEDS: Oseltamivir Phosphate 30 MG Capsule PO ×2 (09:12→20:49)
[2024-12-19] MEDS: APIXABAN 5 MG TABLET PO ×2 (09:12→20:49)
[2024-12-19] MEDS: Acetaminophen 325 MG Tablet 650 MG PO ×3 (09:13→21:00)
[2024-12-19] MEDS: levoFLOXacin IV 750 MG/150 ML BAG 100 MG IV (09:13)
--- NOTE | 2024-12-19 09:44 | PN.HOSP_ITS ---
Reason for Visit Reason for Visit: Diagnoses Influenza due to other identified influenza virus with other respiratory manifestations (12/17/24) Acute kidney failure, unspecified (12/17/24) Hypoxemia (12/17/24) Subjective Subjective Patient seen had to be placed on noninvasive ventilation Vapotherm. Patient also went into A-fib with RVR necessitating patient being started on amiodarone drip and apixaban. Objective Data Objective Data Vital Signs: Vital Signs Temp Pulse Resp BP Pulse Ox O2 Del Method O2 Flow Rate 97.3 F L 103 H 28 H 113/55 L 98 Airvo 60 12/19/24 08:00 12/19/24 09:00 12/19/24 08:12 12/19/24 09:00 12/19/24 08:12 12/19/24 08:12 12/19/24 08:12 FiO2 69 12/19/24 08:12 Oxygen Flow Rate (L/min) 60 Oxygen Delivery Method Airvo Weight: 87.4 kg Body Mass Index (BMI) 25.0 Intake & Output: Intake and Output for Last 24 Hours 12/17/24 12/18/24 12/19/24 23:59 23:59 23:59 Intake Total 2300 / 2500 1500 / 1500 469.60 / 469.60 Output Total 175 / 725 1650 / 2100 800 / 800 Balance 2125 / 1775 -150 / -600 -330.40 / -330.40 Lab / Micro Data 12/19/24 09:58 12/19/24 09:58 Labs: Laboratory Results - last 24 hr 12/17/24 19:18: Vitamin B12 325, Procalcitonin 37.96 H 12/18/24 09:06: Lactic Acid 1.3 12/19/24 06:55: Magnesium 2.6, TSH 72.900 H Micro: Microbiology 12/17/24 15:35 Blood Culture (Wb) - Left Forearm Blood Culture - Preliminary Alpha Hemolytic Streptococcus 12/17/24 15:35 Blood Culture (Wb) - Anticubital Right Bacteria Detection (PCR) - Final Streptococcus pneumoniae 12/17/24 15:35 Blood Culture (Wb) - Anticubital Right Blood Culture - Preliminary Streptococcus pneumoniae 12/17/24 14:49 Urine, Clean Catch Legionella Antigen - Final 12/17/24 14:49 Urine, Clean Catch Streptococcus pneumoniae Antigen (M - Final 12/17/24 14:10 Mucosa - Nose SARS-CoV-2, Influenza & RSV (PCR) - Final Influenzae A Radiography Diagnostic Testing: Radiology Impression Echocardiogram 12/17/24 16:32 Interpretation Summary Normal LV size. The left ventricular ejection fraction is 55 %. Stage 1 diastolic dysfunction. Small (<1.0 cm) pericardial effusion. There are no echocardiographic indications of cardiac tamponade. Focal area in the subcostal region with moderate effusion Ordering Physician: Eulalio Davis Referring Physician: Isai Leal Performed By: Isai Delgadillo RCS Renal Ultrasound 12/18/24 06:00 IMPRESSION: NORMAL RENAL ULTRASOUND Reading Location: [facility] Lung Scan-VQ NM 12/18/24 09:07 IMPRESSION: LOW PROBABILITY OF ACUTE PULMONARY EMBOLISM. Ventilatory defects suggestive of airways disease. Reading Location: [facility] Venous Doppler Study 12/18/24 09:07 Interpretation Summary Deep veins of the lower extremities are bilaterally patent and compressible segmentally. There is no evidence of deep vein thrombosis on either side. Valvular incompetence is noted in the right femoral vein and popliteal vein. Valvular competence appears intact within the proximal deep venous system on the left . The great saphenous veins appear bilaterally patent and compressible segmentally. Ordering Physician: Chavo Butler Performed By: Judy Waters, GEO, RVT Physical Exam Narrative GENERAL: cooperative but appears ill looking HEENT: Atraumatic; normocephalic EYES; Anicteric, Normal Conjunctiva NECK; supple, normal thyroid, RESPIRATORY: Diminished to auscultation CARDIOVASCULAR: Regular S1 S2, GI: soft, normoactive bowel sounds, : No Renal angle tenderness; EXTREMITIES: No edema, no clubbing, MUSCULOSKELETAL: no muscle wasting NEURO: Awake; no lateralizing signs. SKIN: No Rash PSYCH; Flat affect Assessment & Plan Assessment/Plan (1) Influenza A: (2) Hypoxia: (3) JOSÉ MANUEL (acute kidney injury): PLAN: Plan Patient is a 69-year-old male who presented [facility] ED on 12/17/2024 with flulike symptoms. 1. Acute hypoxic respiratory failure ? Secondary to acute influenza A infection with superimposed pneumonia. Patient started on noninvasive ventilation admitted to a monitored bed with treatment of the underlying clinical etiology ? 12/19/2024 patient had to be placed on Vapotherm given worsening hypoxia 2. Acute influenza A infection ? Patient was started on Tamiflu 3. Pneumonia - secondary to streptococcal pneumonia, Blood and sputum cultures sent. Patient blood cultures came back positive for streptococcal pneumonia. Patient had been started on Levaquin on admission we will continue 4. Acute kidney injury ? Secondary to prerenal azotemia from severe dehydration patient started on IV hydration with subsequent monitoring of electrolytes ordered. As part of his management renal ultrasound was ordered ? 12/2024; renal ultrasound demonstrated normal kidneys. Patient creatinine down to 2.5. 5. Mild hyponatremia ? Secondary to hypovolemic hyponatremia started on IV hydration with subsequent monitoring of electrolytes ordered 6. Moderate to severe mitral valve regurgitation due to mitral valve prolapse ? Follows with outpatient cardiology. Last echo in March 2024 showed +3 mitral regurg due to prolapse but LV systolic function and size were normal. BNP ordered. Repeat echo ordered as well. 7. Paroxysmal A-fib ? Possibly preceded by patient underlying pneumonia as well as influenza A as well as severe hypothyroidism. Patient was started on amiodarone drip. Discontinued given patient severe hypothyroidism. Patient started on low-dose Cardizem 8. New onset hypothyroidism ? TSH obtained Came back at 72.9. Patient started on levothyroxine 9. Hypokalemia -Corrected per protocol 10. Pericardial effusion ? Found on CT of the chest. An echo was ordered for subsequent evaluation. 12/19/2024; 2D echo obtained the day prior did show Normal LV size. The left ventricular ejection fraction is 55 %. Stage 1 diastolic dysfunction. Small (<1.0 cm) pericardial effusion.There are no echocardiographic indications of cardiac tamponade. Focal area in the subcostal region with moderate effusion.. 11. Anemia ? Secondary to chronic disorder monitoring H&H and transfuse if patient becomes symptomatic or hemoglobin falls below 7 12. Mild thrombocytopenia ? Platelet count on admission was 101. Monitoring with daily CBC with differential 13. Acute cystitis ? Patient started on Levaquin 14. Hypertension ? Patient had recently been started on losartan this was discontinued given his impaired kidney function subsequently ordered hydralazine 15. DVT prophylaxis ? Patient is on apixaban Time spent in the patient's overall evaluation,decision-making process, review of diagnostic data, adjustment of management, discussion with other providers, nursing nursing and ancillary staff involved in patient's care documentation, 52 Minutes Charges/Coding Visit Charges Inpatient E&M: 22622 [facility] L3
[2024-12-19 10:18] LABS: Hematocrit 34.4 % (40-54); Hemoglobin 11.6 g/dL (13.0-16.5); Mean Corp Hgb Conc 33.7 g/dL (32-36); Mean Corpuscular Hgb 29.6 pg (27.0-32.0); Mean Corpuscular Volume 87.8 fL (80-94); Mean Platelet Vol. 10.2 fl (6.2-12.0); POSITIVE COUNT YES; POSITIVE MORPHOLOGY YES; Platelet Count 117 K/mm3 (150-450); RBC Distribution Width CV 14.7 % (11.6-14.6); RBC Distribution Width SD 47.6 fl (35.1-43.9); Red Blood Count 3.92 M/mm3 (4.6-6.2); White Blood Count 5.4 K/mm3 (4.4-11.0)
[2024-12-19 10:36] LABS: Differential Indicated MANUAL DIFF
[2024-12-19 10:39] LABS: AST(SGOT) 101 U/L (15-37); Alanine Aminotransfer ALT/SGPT 46 U/L (16-61); Albumin, Serum 2.3 g/dL (3.2-5.0); Alkaline Phosphatase 71 U/L (45-117); Anion Gap 10 (5-15); BUN 67 mg/dL (7-18); BUN/Creat Ratio 26.8 RATIO (10-20); Bilirubin, Direct 0.23 mg/dL (0.00-0.30); Calcium,Total 9.2 mg/dL (8.5-10.1); Chloride 108 mmol/L (98-107); EST Glomerular Filtration Rate 27 mL/min (>60); Est Glom Filt Rate - Afr Amer 33 mL/min (>60); Estimated Creatinine Clearance 31.96 ml/min; Globulin 5.5 g/dL (2.2-4.2); Glucose 140 mg/dL (74-106); Magnesium 2.5 mg/dL (1.6-2.6); Phosphorus 2.1 mg/dL (2.5-4.9); Potassium 3.2 mmol/L (3.5-5.1); Protein, Total 7.8 g/dL (6.4-8.2); Sodium Level 137 mmol/L (136-145)
[2024-12-19] MEDS: KCL 20MEQ in 0.9% NS 20 MEQ/1,000 ML IV.SOLN. 125 MEQ IV ×2 (11:11→18:56)
[2024-12-19] MEDS: 0.9% Saline Lock 10 ML Syringe IV ×4 (12:53→23:32)
[2024-12-19] MEDS: Na Biphos/Potassium Phosphate PACKET 1 PACKET PO ×2 (13:11→20:49)
[2024-12-19] MEDS: Levothyroxine 137 MCG Tablet PO (13:12)
[2024-12-19 13:33] LABS: Lymphocyte 11 % (19-41); Metamyelocyte 1 % (0-1); Monocyte 1 % (0-10); Neutrophil-Band 7 % (0-5); Neutrophil-Segmented 80 % (47-70); Total Cells Counted 100 (MANUAL DIFF)
--- NOTE | 2024-12-19 13:45 | NURSING ---
This RN took over pt care at this time.
[2024-12-19 14:08] LABS: Absolute Neutrophil Count 4.7 X10^3/uL (2.0-7.7)
[2024-12-19 14:09] LABS: Absolute Lymphocyte Count 0.59 X10^3/uL (0.83-4.51); Differential Comment SCANNED; Platelet Estimate SLT DEC (ADEQ); Red Cell Morphology NORM C+C NORMAL (NORM C&C)
[2024-12-19] MEDS: Metoprolol Tartrate 5 MG/5 ML Vial IV ×3 (14:59→23:32)
[2024-12-19] MEDS: Ondansetron 4 MG/2 ML Vial IV (15:00)
[2024-12-19] MEDS: Potassium Chloride Oral Tablet 20 MEQ PO (17:28)
--- NOTE | 2024-12-19 23:27 | EKG12_ITS ---
Test Reason : RHYTHM CHANGE Blood Pressure : */* mmHG Vent. Rate : 82 BPM Atrial Rate : 82 BPM P-R Int : 182 ms QRS Dur : 92 ms QT Int : 372 ms P-R-T Axes : 70 -29 61 degrees QTcB Int : 434 ms Normal sinus rhythm Low voltage QRS Borderline ECG When compared with ECG of 19-Dec-2024 00:54, Sinus rhythm has replaced Atrial fibrillation Vent. rate has decreased by 41 bpm Confirmed by VALENTINA VAZQUEZ, ALLY ([id number]), film editor supervisor MARTA HILTON ([id number]) on 12/21/2024 7:12:11 AM Referred By: Isai Leal Confirmed By: ALLY MONTGOMERY MD
[2024-12-20] VITALS (19 sets, daily range): BP systolic 115–131; BP diastolic 66–97; PULSE 81–90; RESP 17–20; TEMP 36.4–37.6; O2SAT 90–98
[2024-12-20] MEDS: KCL 20MEQ in 0.9% NS 20 MEQ/1,000 ML IV.SOLN. 125 MEQ IV ×2 (02:45→12:10)
[2024-12-20] MEDS: Metoprolol Tartrate 5 MG/5 ML Vial IV ×3 (06:05→18:27)
[2024-12-20] MEDS: Vancomycin HCl 750 MG in 0.9% Normal Saline (250mL Bag) 250 ML 250 MG IV (06:05)
[2024-12-20] MEDS: Levothyroxine 137 MCG Tablet PO (06:11)
[2024-12-20 07:03] LABS: Hematocrit 32.4 % (40-54); Hemoglobin 10.5 g/dL (13.0-16.5); Mean Corp Hgb Conc 32.4 g/dL (32-36); Mean Corpuscular Hgb 29.3 pg (27.0-32.0); Mean Corpuscular Volume 90.5 fL (80-94); Mean Platelet Vol. 10.4 fl (6.2-12.0); POSITIVE COUNT YES; POSITIVE MORPHOLOGY YES; Platelet Count 121 K/mm3 (150-450); RBC Distribution Width CV 15.2 % (11.6-14.6); RBC Distribution Width SD 51.1 fl (35.1-43.9); Red Blood Count 3.58 M/mm3 (4.6-6.2); White Blood Count 7.7 K/mm3 (4.4-11.0)
[2024-12-20 07:23] LABS: Differential Indicated MANUAL DIFF
[2024-12-20 07:45] LABS: Anion Gap 6 (5-15); BUN 60 mg/dL (7-18); BUN/Creat Ratio 27.6 RATIO (10-20); Calcium,Total 8.8 mg/dL (8.5-10.1); Chloride 114 mmol/L (98-107); Creatinine, Serum 2.17 mg/dL (0.70-1.30); EST Glomerular Filtration Rate 32 mL/min (>60); Est Glom Filt Rate - Afr Amer 39 mL/min (>60); Estimated Creatinine Clearance 36.82 ml/min; Glucose 87 mg/dL (74-106); Magnesium 2.4 mg/dL (1.6-2.6); Phosphorus 2.2 mg/dL (2.5-4.9); Potassium 3.7 mmol/L (3.5-5.1); Sodium Level 142 mmol/L (136-145)
[2024-12-20 08:05] LABS: Atypical Lymphocyte 1+ %; Lymphocyte 15 % (19-41); Metamyelocyte 2 % (0-1); Monocyte 1 % (0-10); Myelocyte 1 % (0-0); Neutrophil-Band 6 % (0-5); Neutrophil-Segmented 73 % (47-70); Plasma Cell 2 %; Total Cells Counted 100 (MANUAL DIFF)
[2024-12-20 08:06] LABS: Absolute Neutrophil Count 6.1 X10^3/uL (2.0-7.7); Platelet Estimate ADEQUATE (ADEQ); Red Cell Morphology NORM C+C NORMAL (NORM C&C)
[2024-12-20] MEDS: Potassium Chloride Oral Tablet 20 MEQ PO ×2 (09:15→16:19)
[2024-12-20] MEDS: Oseltamivir Phosphate 30 MG Capsule PO ×2 (09:16→20:08)
[2024-12-20] MEDS: APIXABAN 5 MG TABLET PO ×2 (09:17→20:08)
[2024-12-20] MEDS: Na Biphos/Potassium Phosphate PACKET 1 PACKET PO ×2 (09:17→20:08)
[2024-12-20] MEDS: 0.9% Saline Lock 10 ML Syringe IV ×4 (09:17→20:08)
[2024-12-20] MEDS: Acetaminophen 325 MG Tablet 650 MG PO ×2 (09:17→16:19)
[2024-12-20] MEDS: Metoprolol Tartrate 25 MG Tablet PO (20:07)
[2024-12-21] VITALS (13 sets, daily range): BP systolic 136–159; BP diastolic 70–91; PULSE 80–104; RESP 12–28; TEMP 36.2–36.8; O2SAT 93–100
[2024-12-21] MEDS: Acetaminophen 325 MG Tablet 650 MG PO (00:38)
[2024-12-21 01:50] LABS: Allen Test Positive; Base Excess -5 mmol/L (-2 to +2); Bicarbonate 20.7 mmol/L (22-26); Blood Gas Specimen Type ART; Comment 50L; Mode Not entered; O2 Delivery Device HFNC; PO2 75 mmHG (75-100); SITE R Radial; SO2 94 % (95-99); Total Carbon Dioxide 22 mmol/L; pCO2 38.9 mmHg (35-45); pH 7.33 (7.35-7.45)
--- NOTE | 2024-12-21 02:15 | PCM.HOSP.N ---
Hospitalist Note Patient with increased hypoxia placed back on Airvo however discussed his status with respiratory therapy and at this time given also pleural effusions as well as significant comorbidities with pneumonia and influenza we will trial instead of BiPAP. Patient does have acute kidney injury and his renal function is barely starting to recover therefore will defer any attempts at IV Lasix at this time. ABG obtained and not marked appearing aside from pH 7.33. Will repeat chest x-ray in AM.
[2024-12-21] MEDS: LORazepam 2 MG/ML Syringe 0.5 MG IV (02:28)
[2024-12-21] MEDS: 0.9% Saline Lock 10 ML Syringe IV (02:34)
[2024-12-21] MEDS: Levothyroxine 137 MCG Tablet PO (05:00)
--- NOTE | 2024-12-21 05:15 | NURSING ---
Pt voided small amt in brief. bladder scanned for 293 ml after attempt to urinate in bsc.
--- NOTE | 2024-12-21 05:30 | RAD_ITS ---
PROCEDURE: CHEST 1 VIEW (PORTABLE) REASON FOR EXAM: Dyspnea. Patient on BiPAP. TECHNIQUE: Frontal and lateral views of the chest. Single frontal image including the chest.. COMPARISON: CT chest dated 12/18/2024. FINDINGS: Airspace consolidation has increased in the right upper lobe since the previous study. Patchy airspace consolidation is also seen in the right lower lobe. No pleural effusions, thickening, or pneumothorax. Cardiomegaly.. Great vessels unremarkable. No hilar masses. Bones and soft tissues are unremarkable. RAD/Chest 1 View (Portable) IMPRESSION: Extensive right lung infiltrates, increased in the right upper lobe since the p revious study. Cardiomegaly. Reading Location: [facility]
[2024-12-21 07:44] LABS: Basophil# 0.01 X10^3/uL; Basophil% 0.1 % (0-1); Eosinophil# 0.01 X10^3/uL; Eosinophils% 0.1 % (0-5); Hematocrit 31.3 % (40-54); Lymphocyte # 0.99 X10^3/ul (0.83-4.51); Lymphocyte % 8.7 % (19-41); Mean Corp Hgb Conc 31.9 g/dL (32-36); Mean Corpuscular Hgb 29.4 pg (27.0-32.0); Mean Corpuscular Volume 92.1 fL (80-94); Mean Platelet Vol. 10.2 fl (6.2-12.0); Monocyte# 0.89 X10^3/uL; Monocyte% 7.8 % (0-10); NRBC Flagged by Analyzer 0 % (0-5); POSITIVE COUNT YES; POSITIVE MORPHOLOGY YES; Platelet Count 150 K/mm3 (150-450); RBC Distribution Width CV 15.8 % (11.6-14.6); RBC Distribution Width SD 53.5 fl (35.1-43.9); White Blood Count 11.3 K/mm3 (4.4-11.0)
[2024-12-21 07:48] LABS: Differential Indicated MANUAL DIFF
[2024-12-21 07:59] LABS: Anion Gap 5 (5-15); BUN 47 mg/dL (7-18); Calcium,Total 9.1 mg/dL (8.5-10.1); Chloride 119 mmol/L (98-107); Creatinine, Serum 1.88 mg/dL (0.70-1.30); EST Glomerular Filtration Rate 38 mL/min (>60); Est Glom Filt Rate - Afr Amer 46 mL/min (>60); Glucose 86 mg/dL (74-106); Potassium 4.2 mmol/L (3.5-5.1); Sodium Level 147 mmol/L (136-145)
[2024-12-21 08:47] LABS: Absolute Neutrophil Count 8.5 X10^3/uL (2.0-7.7)
[2024-12-21 08:48] LABS: Absolute Lymphocyte Count 2.04 X10^3/uL (0.83-4.51); Atypical Lymphocyte 2+ %; Eosinophil 1 % (0-5); Lymphocyte 18 % (19-41); Metamyelocyte 2 % (0-1); Monocyte 4 % (0-10); Neutrophil-Band 20 % (0-5); Neutrophil-Segmented 55 % (47-70); Platelet Estimate ADEQUATE (ADEQ); Red Cell Morphology NORM C+C NORMAL (NORM C&C)
[2024-12-21] MEDS: Potassium Chloride Oral Tablet 20 MEQ PO (09:38)
[2024-12-21] MEDS: Metoprolol Tartrate 25 MG Tablet PO ×2 (09:39→22:03)
[2024-12-21] MEDS: Oseltamivir Phosphate 30 MG Capsule PO ×2 (09:39→22:02)
[2024-12-21] MEDS: Na Biphos/Potassium Phosphate PACKET 1 PACKET PO ×2 (09:39→22:03)
[2024-12-21] MEDS: APIXABAN 5 MG TABLET PO (09:39)
[2024-12-21] MEDS: Vancomycin IV 500 MG/100 ML BAG 100 MG IV ×2 (09:40→20:35)
[2024-12-21] MEDS: levoFLOXacin IV 750 MG/150 ML BAG 100 MG IV (11:44)
--- NOTE | 2024-12-21 12:01 | PCM.PN.HOSP ---
Reason for Visit Reason for Visit: Diagnoses Influenza due to other identified influenza virus with other respiratory manifestations (12/17/24) Acute kidney failure, unspecified (12/17/24) Hypoxemia (12/17/24) Subjective Subjective Patient seen, per nursing staff as well as family patient has developed acute delirium. Did review diagnostic workup and ordered CT of the head as well as [facility] teleneuro consult Objective Data Objective Data Vital Signs: Vital Signs Temp Pulse Resp BP Pulse Ox O2 Del Method O2 Flow Rate 97.1 F L 96 24 H 136/79 H 98 Airvo 50 12/21/24 03:53 12/21/24 09:39 12/21/24 07:46 12/21/24 03:53 12/21/24 07:46 12/21/24 07:45 12/21/24 07:45 FiO2 65 12/21/24 07:46 Oxygen Flow Rate (L/min) 50 Oxygen Delivery Method Airvo Weight: 87.4 kg Body Mass Index (BMI) 25.0 Intake & Output: Intake and Output for Last 24 Hours 12/19/24 12/20/24 12/21/24 23:59 23:59 23:59 Intake Total 2133.20 / 2133.20 3242.08 / 3242.08 100 / 100 Output Total 2024 / 2024 250 / 250 Balance 108.20 / 108.20 2992.08 / 2992.08 100 / 100 Lab / Micro Data 12/21/24 06:30 12/21/24 06:30 Labs: Laboratory Results - last 24 hr 12/21/24 06:30: WBC 11.3 H, RBC 3.40 L, Hgb 10.0 L, Hct 31.3 L, MCV 92.1, MCH 29.4, MCHC 31.9 L, RDW Std Deviation 53.5 H, RDW Coeff of Whit 15.8 H, Plt Count 150, MPV 10.2, Immature Gran % (Auto) 8.300 H, Neut % (Auto) 75.0 H, Lymph % (Auto) 8.7 L, Amador % (Auto) 7.8, Eos % (Auto) 0.1, Baso % (Auto) 0.1, Absolute Neuts (auto) 8.5 H, Absolute Lymphs (auto) 2.04, Neutrophils % (Manual) 55, Band Neutrophils % 20 H, Lymphocytes % (Manual) 18 L, Monocytes % (Manual) 4, Eosinophils % (Manual) 1, Metamyelocytes % 2 H, Nucleated RBC % 0, Atypical Lymphocytes 2+, Platelet Estimate ADEQUATE, RBC Morphology NORM C+C, Sodium 147 H, Potassium 4.2, Chloride 119 H, Carbon Dioxide 22.0, Anion Gap 5, BUN 47 H, Creatinine 1.88 H, Estim Creat Clear Calc 42.50, Est GFR (MDRD) Af Amer 46 L, Est GFR (MDRD) Non-Af 38 L, BUN/Creatinine Ratio 25.0 H, Glucose 86, Calcium 9.1, Vancomycin Trough 10.0 Micro: Microbiology 12/18/24 16:40 Sputum, Expectorated/Coughed Gram Stain - Final 12/18/24 16:40 Sputum, Expectorated/Coughed Respiratory Culture - Final Mixed normal respiratory ayah. No Streptococcus pneumoniae, beta-hemolytic Streptococcus or Staphylococcus aureus isolated. 12/17/24 15:35 Blood Culture (Wb) - Anticubital Right Bacteria Detection (PCR) - Final Streptococcus pneumoniae 12/17/24 15:35 Blood Culture (Wb) - Anticubital Right Blood Culture - Final Streptococcus pneumoniae 12/17/24 15:35 Blood Culture (Wb) - Left Forearm Blood Culture - Final Alpha Hemolytic Streptococcus 12/17/24 14:49 Urine, Clean Catch Legionella Antigen - Final 12/17/24 14:49 Urine, Clean Catch Streptococcus pneumoniae Antigen (M - Final 12/17/24 14:10 Mucosa - Nose SARS-CoV-2, Influenza & RSV (PCR) - Final Influenzae A ABG Data ABG results: ABG 12/21/24 01:44 Specimen Type ART Sample Site R Radial pH 7.33 L Bicarbonate Actual 20.7 L Total CO2 22 Base Excess -5 L O2 Saturation 94 L O2 % 65.0 ABG pCO2 38.9 ABG pO2 75 Deondre Test Positive O2 Delivery Device HFNC Vent Mode Not entered Clinical Comments 50L Radiography Diagnostic Testing: Radiology Impression Chest X-Ray 12/21/24 05:30 IMPRESSION: Extensive right lung infiltrates, increased in the right upper lobe since the previous study. Cardiomegaly. Reading Location: [facility] Physical Exam Narrative GENERAL: cooperative but appears ill looking HEENT: Atraumatic; normocephalic EYES; Anicteric, Normal Conjunctiva NECK; supple, normal thyroid, RESPIRATORY: Diminished to auscultation CARDIOVASCULAR: Regular S1 S2, GI: soft, normoactive bowel sounds, : No Renal angle tenderness; EXTREMITIES: No edema, no clubbing, MUSCULOSKELETAL: no muscle wasting NEURO: Awake; no lateralizing signs. SKIN: No Rash PSYCH; Flat affect Assessment & Plan Assessment/Plan (1) Influenza A: (2) Hypoxia: (3) JOSÉ MANUEL (acute kidney injury): PLAN: Plan Patient is a 69-year-old male who presented [facility] ED on 12/17/2024 with flulike symptoms. 1. Acute hypoxic respiratory failure ? Secondary to acute influenza A infection with superimposed pneumonia. Patient started on noninvasive ventilation admitted to a monitored bed with treatment of the underlying clinical etiology ? 12/19/2024 patient had to be placed on Vapotherm given worsening hypoxia 2. Acute influenza A infection ? Patient was started on Tamiflu 3. Pneumonia - secondary to streptococcal pneumonia, Blood and sputum cultures sent. Patient blood cultures came back positive for streptococcal pneumonia. Patient had been started on Levaquin on admission we will continue 4. Acute kidney injury ? Secondary to prerenal azotemia from severe dehydration patient started on IV hydration with subsequent monitoring of electrolytes ordered. As part of his management renal ultrasound was ordered ? 12/2024; renal ultrasound demonstrated normal kidneys. Patient creatinine down to 2.5. 5. Mild hyponatremia ? Secondary to hypovolemic hyponatremia started on IV hydration with subsequent monitoring of electrolytes ordered 6. Moderate to severe mitral valve regurgitation due to mitral valve prolapse ? Follows with outpatient cardiology. Last echo in March 2024 showed +3 mitral regurg due to prolapse but LV systolic function and size were normal. BNP ordered. Repeat echo ordered as well. 7. Paroxysmal A-fib ? Possibly preceded by patient underlying pneumonia as well as influenza A as well as severe hypothyroidism. Patient was started on amiodarone drip. Discontinued given patient severe hypothyroidism. Patient started on low-dose Cardizem 8. New onset hypothyroidism ? TSH obtained Came back at 72.9. Patient started on levothyroxine 9. Hypokalemia -Corrected per protocol 10. Pericardial effusion ? Found on CT of the chest. An echo was ordered for subsequent evaluation. 12/19/2024; 2D echo obtained the day prior did show Normal LV size. The left ventricular ejection fraction is 55 %. Stage 1 diastolic dysfunction. Small (<1.0 cm) pericardial effusion.There are no echocardiographic indications of cardiac tamponade. Focal area in the subcostal region with moderate effusion.. 11. Anemia ? Secondary to chronic disorder monitoring H&H and transfuse if patient becomes symptomatic or hemoglobin falls below 7 12. Mild thrombocytopenia ? Platelet count on admission was 101. Monitoring with daily CBC with differential 13. Acute cystitis ? Patient started on Levaquin 14. Hypertension ? Patient had recently been started on losartan this was discontinued given his impaired kidney function subsequently ordered hydralazine 15. DVT prophylaxis ? Patient is on apixaban ? 12/21/2024; apixaban discontinued. CAT scan findings. 16. Acute delirium ? Suspected to be secondary to metabolic encephalopathy from patient multiple medical issues including severe hypothyroidism, pneumonia and acute kidney injury. As part of patient's management ordered CT of the head. CT of the head came back revealing questionable questionable tiny petechial bleed in the anterior cortex of the right temporal lobe. Patient is on apixaban discontinued. Consult was placed to [facility] Time spent in the patient's overall evaluation,decision-making process, review of diagnostic data, adjustment of management, discussion with other providers, nursing nursing and ancillary staff involved in patient's care documentation, 52 Minutes Charges/Coding Visit Charges Inpatient E&M: 00107 [facility] Hosp L3
--- NOTE | 2024-12-21 12:35 | PCM.RX.CS ---
Consult Antibiotic Management Pharmacy has been consulted to manage selected antibiotic: Vancomycin Type of Intervention Type of Consult: Follow-up Labs Labs: Sodium 147 mmol/L (136-145) H 12/21/24 06:30 Potassium 4.2 mmol/L (3.5-5.1) 12/21/24 06:30 Chloride 119 mmol/L (98-107) H 12/21/24 06:30 Carbon Dioxide 22.0 mmol/L (21.0-32.0) 12/21/24 06:30 Anion Gap 5 (5-15) 12/21/24 06:30 BUN 47 mg/dL (7-18) H 12/21/24 06:30 Creatinine 1.88 mg/dL (0.70-1.30) H 12/21/24 06:30 Est GFR (MDRD) Af Amer 46 mL/min (>60) L 12/21/24 06:30 Est GFR (MDRD) Non-Af 38 mL/min (>60) L 12/21/24 06:30 BUN/Creatinine Ratio 25.0 RATIO (10-20) H 12/21/24 06:30 Glucose 86 mg/dL (74-106) 12/21/24 06:30 Vancomycin Trough 10.0 ug/mL (5.0-15.0) 12/21/24 06:30 Microbiology Microbiology: Microbiology 12/18/24 16:40 Sputum, Expectorated/Coughed Gram Stain - Final 12/18/24 16:40 Sputum, Expectorated/Coughed Respiratory Culture - Final Mixed normal respiratory ayah. No Streptococcus pneumoniae, beta-hemolytic Streptococcus or Staphylococcus aureus isolated. 12/17/24 15:35 Blood Culture (Wb) - Anticubital Right Bacteria Detection (PCR) - Final Streptococcus pneumoniae 12/17/24 15:35 Blood Culture (Wb) - Anticubital Right Blood Culture - Final Streptococcus pneumoniae 12/17/24 15:35 Blood Culture (Wb) - Left Forearm Blood Culture - Final Alpha Hemolytic Streptococcus 12/17/24 14:49 Urine, Clean Catch Legionella Antigen - Final 12/17/24 14:49 Urine, Clean Catch Streptococcus pneumoniae Antigen (M - Final 12/17/24 14:10 Mucosa - Nose SARS-CoV-2, Influenza & RSV (PCR) - Final Influenzae A Goal Trough Goal Trough: 15-20 mcg/mL Pharmacy Plan for Drug Dosing Pharmacy Plan for Drug Dosing: VANCOMYCIN LEVEL RECEIVED Current Vancomycin Dose: 750mg q24h (0700) Number of Doses Received: x1 2000mg dose, x2 750mg doses Vancomycin Level: 10 (drawn 12/21 at 0630) Hours Since Last Dose: 24.5 hours since last 750mg dose Renal Function: SrCr 2.17 Renal Function Trend: SrCr improving (was 3.16 on 12/19/24) Lab/Micro: Vancomycin Plan/Comments: resulted trough of 10 is below the ordered goal trough range of 15-20. recommend changing dose to 500mg q12h and checking a trough prior to the 4th dose Pending Level: 12/22/24 at 1930 Pharmacy Service will continue to monitor and adjust dosing as required. Follow-Up Labs Follow-Up Labs: Trough: Vancomycin (12/22/24 at 1930)
--- NOTE | 2024-12-21 14:05 | CT_ITS ---
PROCEDURE: STROKE BRAIN/HEAD WITHOUT CONT REASON FOR EXAM: Acute encephalopathy. TECHNIQUE: Multiple axial tomographic images were obtained without intravenous contrast administration. Coronal and sagittal reconstruction was obtained as well. IV CONTRAST: COMPARISON: Comparison is made with prior CT scan of the head dated April 14, 2012. FINDINGS: Mild degree of cerebral atrophy. 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 Punctate focal region of increased density in the insular cortex of the right temporal lobe. This may represent tiny petechial bleed. This was not seen on prior study. No significant edema is seen. CT/STROKE Brain/Head without Cont IMPRESSION: Mild atrophy. Questionable tiny petechial bleed in the anterior cortex of the right temporal lobe. One or more dose reduction techniques were used (e.g., Automated exposure contr ol, adjustment of the mA and/or kV according to patient size, use of iterative reconstruction technique). Reading Location: [id number]
[2024-12-21 14:40] LABS: Pathologist Review Reviewed
[2024-12-21] MEDS: Dext 5%-0.45% NS 1,000 ML 125 ML IV ×2 (16:13→21:53)
[2024-12-22] VITALS (10 sets, daily range): BP systolic 144–156; BP diastolic 61–81; PULSE 82–92; RESP 16–20; TEMP 36.7–36.9; O2SAT 77–96
[2024-12-22] MEDS: Dext 5%-0.45% NS 1,000 ML 125 ML IV ×3 (01:23→20:33)
[2024-12-22] MEDS: Acetaminophen 325 MG Tablet 650 MG PO ×2 (04:04→12:11)
[2024-12-22] MEDS: Levothyroxine 137 MCG Tablet PO (05:07)
[2024-12-22] MEDS: 0.9% Saline Lock 10 ML Syringe IV (05:07)
--- NOTE | 2024-12-22 05:55 | CT_ITS ---
EXAM: STROKE BRAIN/HEAD WITHOUT CONT CLINICAL HISTORY: Stroke COMPARISON: 12/21/2024 TECHNIQUE: Routine CT imaging of the head without IV contrast. Additional multiplanar reformats were obtained. Dose reduction techniques were used including intermediate exposure control (AEC),iterative reconstruction technique, and/or mA and/or KV dose adjustments based on patient's size. FINDINGS: No acute intracranial hemorrhage. Question of petechial hemorrhage on the previous exam was likely artifactual. No loss of santos-white differentiation.The ventricles and sulci are normal in appearance. The osseous structures are unremarkable. No soft tissue abnormality identified. The paranasal sinuses and mastoid air cells are clear. CT/STROKE Brain/Head without Cont IMPRESSION: 1. No evidence of acute intracranial abnormality. 2. No intracranial hemorrhage. The questionable petechial hemorrhage on the pr evious exam is likely artifactual. Reading Location: [facility]
[2024-12-22 07:05] LABS: Hemoglobin 9.5 g/dL (13.0-16.5); Mean Corp Hgb Conc 31.7 g/dL (32-36); Mean Corpuscular Hgb 28.4 pg (27.0-32.0); Mean Corpuscular Volume 89.8 fL (80-94); Mean Platelet Vol. 9.9 fl (6.2-12.0); POSITIVE COUNT YES; POSITIVE MORPHOLOGY YES; Platelet Count 188 K/mm3 (150-450); RBC Distribution Width CV 15.5 % (11.6-14.6); RBC Distribution Width SD 51.2 fl (35.1-43.9); Red Blood Count 3.34 M/mm3 (4.6-6.2); White Blood Count 9.9 K/mm3 (4.4-11.0)
[2024-12-22 07:17] LABS: Differential Indicated MANUAL DIFF
[2024-12-22 07:54] LABS: Anion Gap 6 (5-15); BUN 33 mg/dL (7-18); Chloride 115 mmol/L (98-107); EST Glomerular Filtration Rate 50 mL/min (>60); Est Glom Filt Rate - Afr Amer 60 mL/min (>60); Estimated Creatinine Clearance 53.27 ml/min; Glucose 100 mg/dL (74-106); Potassium 3.7 mmol/L (3.5-5.1); Sodium Level 144 mmol/L (136-145)
[2024-12-22 09:55] LABS: Lymphocyte 16 % (19-41); Metamyelocyte 1 % (0-1); Monocyte 8 % (0-10); Myelocyte 1 % (0-0); Neutrophil-Segmented 72 % (47-70); Plasma Cell 1 %; Platelet Estimate ADEQUATE (ADEQ); Promyelocyte 1 % (0-0); Red Cell Morphology NORM C+C NORMAL (NORM C&C); Total Cells Counted 100 (MANUAL DIFF)
[2024-12-22 09:56] LABS: Absolute Neutrophil Count 7.1 X10^3/uL (2.0-7.7)
[2024-12-22] MEDS: Na Biphos/Potassium Phosphate PACKET 1 PACKET PO ×2 (09:59→20:40)
[2024-12-22] MEDS: Metoprolol Tartrate 25 MG Tablet PO ×2 (09:59→20:40)
--- NOTE | 2024-12-22 10:38 | PCM.PN.HOSP ---
Reason for Visit Reason for Visit: Diagnoses Influenza due to other identified influenza virus with other respiratory manifestations (12/17/24) Acute kidney failure, unspecified (12/17/24) Hypoxemia (12/17/24) Subjective Subjective Patient seen still remains on high flow oxygen currently 8 L at rest saturating 90%. Patient creatinine and sodium and WBC count continue to improve. Repeated CT of the head was negative for acute bleed Objective Data Objective Data Vital Signs: Vital Signs Temp Pulse Resp BP Pulse Ox O2 Del Method O2 Flow Rate 98.1 F 90 16 156/81 H 95 High Flow 8 12/22/24 04:00 12/22/24 09:59 12/22/24 04:00 12/22/24 04:00 12/22/24 07:45 12/22/24 07:45 12/22/24 07:45 FiO2 60 12/21/24 12:50 Oxygen Flow Rate (L/min) 8 Oxygen Delivery Method High Flow Weight: 87.4 kg Body Mass Index (BMI) 25.0 Intake & Output: Intake and Output for Last 24 Hours 12/20/24 12/21/24 12/22/24 23:59 23:59 23:59 Intake Total 3242.08 / 3242.08 1084.17 / 1144.17 1557.5 / 1557.5 Output Total 250 / 250 500 / 500 1075 / 1075 Balance 2992.08 / 2992.08 584.17 / 644.17 482.5 / 482.5 Lab / Micro Data 12/22/24 05:56 12/22/24 05:56 Labs: Laboratory Results - last 24 hr 12/20/24 06:37: Diff Path Review Reviewed 12/22/24 05:56: WBC 9.9, RBC 3.34 L, Hgb 9.5 L, Hct 30.0 L, MCV 89.8, MCH 28.4, MCHC 31.7 L, RDW Std Deviation 51.2 H, RDW Coeff of Whit 15.5 H, Plt Count 188, MPV 9.9, Neut % (Auto) Not Reportable, Absolute Neuts (auto) 7.1, Absolute Lymphs (auto) 1.60, Total Counted 100, Neutrophils % (Manual) 72 H, Lymphocytes % (Manual) 16 L, Monocytes % (Manual) 8, Metamyelocytes % 1, Myelocytes % 1 H, Promyelocytes % 1 H, Plasma Cell % (Manual) 1, Diff Path Review March, Platelet Estimate ADEQUATE, RBC Morphology NORM C+C, Sodium 144, Potassium 3.7, Chloride 115 H, Carbon Dioxide 23.0, Anion Gap 6, BUN 33 H, Creatinine 1.50 H, Estim Creat Clear Calc 53.27, Est GFR (MDRD) Af Amer 60, Est GFR (MDRD) Non-Af 50 L, BUN/Creatinine Ratio 22.0 H, Glucose 100, Calcium 9.0 Micro: Microbiology 12/18/24 16:40 Sputum, Expectorated/Coughed Gram Stain - Final 12/18/24 16:40 Sputum, Expectorated/Coughed Respiratory Culture - Final Mixed normal respiratory ayah. No Streptococcus pneumoniae, beta-hemolytic Streptococcus or Staphylococcus aureus isolated. 12/17/24 15:35 Blood Culture (Wb) - Anticubital Right Bacteria Detection (PCR) - Final Streptococcus pneumoniae 12/17/24 15:35 Blood Culture (Wb) - Anticubital Right Blood Culture - Final Streptococcus pneumoniae 12/17/24 15:35 Blood Culture (Wb) - Left Forearm Blood Culture - Final Alpha Hemolytic Streptococcus 12/17/24 14:49 Urine, Clean Catch Legionella Antigen - Final 12/17/24 14:49 Urine, Clean Catch Streptococcus pneumoniae Antigen (M - Final 12/17/24 14:10 Mucosa - Nose SARS-CoV-2, Influenza & RSV (PCR) - Final Influenzae A Radiography Diagnostic Testing: Radiology Impression Brain CT 12/21/24 14:05 IMPRESSION: Mild atrophy. Questionable tiny petechial bleed in the anterior cortex of the right temporal lobe. One or more dose reduction techniques were used (e.g., Automated exposure control, adjustment of the mA and/or kV according to patient size, use of iterative reconstruction technique). Reading Location: [id number] Brain CT 12/22/24 05:55 IMPRESSION: 1. No evidence of acute intracranial abnormality. 2. No intracranial hemorrhage. The questionable petechial hemorrhage on the previous exam is likely artifactual. Reading [facility] Exam Narrative GENERAL: cooperative but appears ill looking HEENT: Atraumatic; normocephalic EYES; Anicteric, Normal Conjunctiva NECK; supple, normal thyroid, RESPIRATORY: Diminished to auscultation CARDIOVASCULAR: Regular S1 S2, GI: soft, normoactive bowel sounds, : No Renal angle tenderness; EXTREMITIES: No edema, no clubbing, MUSCULOSKELETAL: no muscle wasting NEURO: Awake; no lateralizing signs. SKIN: No Rash PSYCH; Flat affect Assessment & Plan Assessment/Plan (1) Influenza A: (2) Hypoxia: (3) JOSÉ MANUEL (acute kidney injury): PLAN: Plan Patient is a 69-year-old male who presented [facility] ED on 12/17/2024 with flulike symptoms. 1. Acute hypoxic respiratory failure ? Secondary to acute influenza A infection with superimposed pneumonia. Patient started on noninvasive ventilation admitted to a monitored bed with treatment of the underlying clinical etiology ? 12/19/2024 patient had to be placed on Vapotherm given worsening hypoxia ? 12/22/2024; patient still remains significantly hypoxic currently on 8 L/min flow of oxygen. Repeat chest x-ray obtained the day prior did show Extensive right lung infiltrates, increased in the right upper lobe since the previous study. Consult was placed to pulmonary medicine given patient persistent hypoxia 2. Acute influenza A infection ? Patient was started on Tamiflu ? 12/22/2024; patient has completed treatment with Tamiflu 3. Pneumonia - secondary to streptococcal pneumonia, Blood and sputum cultures sent. Patient blood cultures came back positive for streptococcal pneumonia. Patient had been started on Levaquin on admission we will continue 4. Acute kidney injury ? Secondary to prerenal azotemia from severe dehydration patient started on IV hydration with subsequent monitoring of electrolytes ordered. As part of his management renal ultrasound was ordered ? 12/22/2024; renal ultrasound demonstrated normal kidneys. Patient creatinine down to 2.5. ? 12/22/2024; creatinine down to 1.5 5. Mild hyponatremia ? Secondary to hypovolemic hyponatremia started on IV hydration with subsequent monitoring of electrolytes ordered ? 12/22/2024; sodium levels down to 144 with D5 half-normal saline 6. Moderate to severe mitral valve regurgitation due to mitral valve prolapse ? Follows with outpatient cardiology. Last echo in March 2024 showed +3 mitral regurg due to prolapse but LV systolic function and size were normal. BNP ordered. Repeat echo ordered as well. 7. Paroxysmal A-fib ? Possibly preceded by patient underlying pneumonia as well as influenza A as well as severe hypothyroidism. Patient was started on amiodarone drip. Discontinued given patient severe hypothyroidism. Patient started on low-dose Cardizem ? Patient heart rate remains controlled on metoprolol currently in sinus rhythm. Patient had been started on apixaban which was held given personable petechial hemorrhage. Patient apixaban resumed starting 12/22/2024. Patient [id number] score is 2 8. New onset hypothyroidism ? TSH obtained Came back at 72.9. Patient started on levothyroxine 9. Hypokalemia -Corrected per protocol 10. Pericardial effusion ? Found on CT of the chest. An echo was ordered for subsequent evaluation. 12/19/2024; 2D echo obtained the day prior did show Normal LV size. The left ventricular ejection fraction is 55 %. Stage 1 diastolic dysfunction. Small (<1.0 cm) pericardial effusion.There are no echocardiographic indications of cardiac tamponade. Focal area in the subcostal region with moderate effusion.. 11. Anemia ? Secondary to chronic disorder monitoring H&H and transfuse if patient becomes symptomatic or hemoglobin falls below 7 12. Mild thrombocytopenia ? Platelet count on admission was 101. Monitoring with daily CBC with differential 13. Acute cystitis ? Patient started on Levaquin 14. Hypertension ? Patient had recently been started on losartan this was discontinued given his impaired kidney function subsequently ordered hydralazine 15. DVT prophylaxis ? Patient is on apixaban ? 12/21/2024; apixaban discontinued. CAT scan findings. 16. Acute delirium ? Suspected to be secondary to metabolic encephalopathy from patient multiple medical issues including severe hypothyroidism, pneumonia and acute kidney injury. As part of patient's management ordered CT of the head. CT of the head came back revealing questionable questionable tiny petechial bleed in the anterior cortex of the right temporal lobe. Patient is on apixaban discontinued. Consult was [facility] to [facility] -12/22/2024; repeat head CT this a.m. demonstrated No evidence of acute intracranial abnormality. No intracranial hemorrhage. The questionable petechial hemorrhage on the previous exam is likely artifactual. Findings discussed with family Time spent in the patient's overall evaluation,decision-making process, review of diagnostic data, adjustment of management, discussion with other providers, nursing nursing and ancillary staff involved in patient's care documentation, 50 Minutes Charges/Coding Visit Charges Inpatient E&M: 15739 Subs Hosp L3
--- NOTE | 2024-12-22 10:45 | EX.PCM.CONCC ---
Assessment & Plan Assessment/Plan (1) Acute hypoxemic respiratory failure: PLAN: Plan RECOMMENDATIONS: 1. Supplemental oxygen to maintain saturations at or above 90%. 2. Continue antimicrobial therapy. 3. The patient has completed his Tamiflu course. 4. Start scheduled bronchodilators. 5. Stop continuous IV fluids. 6. Encourage incentive spirometer use and mobilize patient as tolerated. 7. Physical therapy to evaluate the patient. IMPRESSIONS: 1. Acute hypoxemic respiratory failure Most likely multifactorial in etiology with acute influenza A infection coupled with superimposed pneumococcal pneumonia contributing. In addition, the patient does have an extensive tobacco abuse history and may certainly have an underlying component of obstructive lung disease, that has never been diagnosed. Therefore, we will plan to start the patient empirically on scheduled bronchodilators. Recommend continuing to wean supplemental oxygen as tolerated to maintain saturations at or above 90%. Encourage incentive spirometer use and mobilize patient as tolerated. Given that the patient is overall net positive from a volume perspective for the hospitalization, I would recommend discontinuation of IV fluids. Ultimately, the patient would benefit from outpatient pulmonary follow-up after discharge so that baseline PFTs can be obtained and routine lung cancer screening performed. 2. Valvular heart disease/paroxysmal atrial fibrillation/new onset hypothyroidism/hypertension/chronic tobacco dependency Complicates care, management, recovery and prognosis. The patient has already been initiated on Synthroid. Recommend that physical therapy work with the patient. Smoking cessation is highly advisable. This note was generated with [employer] dictation software. It may contain incorrect words, spelling, and punctuation that were not noted in checking the note before signing. HPI Consult Data Date of Consult: 12/22/24 HPI Narrative Reason for Consultation: Hypoxemia HPI Narrative: The patient is a 69-year-old male, with a history as outlined below, who presented to the emergency department 5 days ago with generalized malaise, fatigue, decreased p.o. intake and cough. The patient has not had any regular outpatient primary care follow-up. He does have an extensive tobacco abuse history and was smoking cigarettes up until the time he was admitted to the hospital. On presentation to the emergency department, the patient was noted to have a low-grade fever and was mildly tachycardic and tachypneic. Initial laboratory evaluation revealed evidence of pancytopenia with a hemoglobin of 11.9 g/dL and platelet count of 101,000. Chemistry profile was notable for a sodium of 131, potassium 3.3 and creatinine of 3.94. Lactate was within normal limits. Procalcitonin was elevated at 38. TSH was remarkably elevated at 87.1. Urinalysis was positive for nitrites and leukocyte esterase. The patient was subsequently found to be positive for influenza A. Blood cultures further demonstrated growth of Streptococcus pneumonia. CT imaging of the chest demonstrated diffuse bilateral airspace consolidations with small bilateral pleural effusions. Renal ultrasound was unremarkable. The patient has since completed a treatment course of Tamiflu. He remains on antimicrobials. The patient is currently documented to be overall net +6 L for the hospitalization. Head CT completed this morning was unremarkable. The patient remains on supplemental oxygen at 8 L/min, but remains otherwise comfortable. [facility] Medical History (Updated 12/22/24 @ 11:[address] Randall Isbell, DO) Hypertension Home Medications ?Medication ?Instructions ?Recorded ?Last Taken ?Type losartan 25 mg tablet 25 mg PO DAILY 12/17/24 12/16/24 History Allergy/AdvReac Type Severity Reaction Status Date / Time Penicillins Allergy Unknown Verified 12/17/24 12:58 Pbbmnxb-SJY-WbD Reductase Allergy Other Verified 12/17/24 12:58 Inhibitor (Ihxnalo-Cje-Zba Reductase Inhibitor) Social History Smoking Status: Current every day smoker tobacco type: cigarettes ROS ROS Narrative 10 systems were reviewed with pertinent positives as noted in the HPI above. Physical Exam Const alert and no apparent distress Constitutional Narrative: Sitting in bedside recliner. Family is present at the bedside. General Appearance: cooperative HEENT normocephalic and head/scalp atraumatic Eyes PERRL, EOMs intact bilaterally and conjunctivae normal Neck supple General: trachea midline Chest inspection of chest normal Resp normal respiratory effort Auscultation: diminished lung sounds; Negative for rales, rhonchi or wheezes Cardio regular rate and regular rhythm GI normal to inspection, nondistended, normoactive bowel sounds Extremity no clubbing, cyanosis or edema Skin no rashes or lesions noted Neuro CN's II-XII intact bilaterally, moves all extremities and no focal motor deficits Psych cooperative and affect normal Lab / Micro Data 12/22/24 05:56 12/22/24 05:56 Labs: Laboratory Results - last 24 hr 12/20/24 06:37: Diff Path Review Reviewed 12/22/24 05:56: WBC 9.9, RBC 3.34 L, Hgb 9.5 L, Hct 30.0 L, MCV 89.8, MCH 28.4, MCHC 31.7 L, RDW Std Deviation 51.2 H, RDW Coeff of Whit 15.5 H, Plt Count 188, MPV 9.9, Neut % (Auto) Not Reportable, Absolute Neuts (auto) 7.1, Absolute Lymphs (auto) 1.60, Total Counted 100, Neutrophils % (Manual) 72 H, Lymphocytes % (Manual) 16 L, Monocytes % (Manual) 8, Metamyelocytes % 1, Myelocytes % 1 H, Promyelocytes % 1 H, Plasma Cell % (Manual) 1, Diff Path Review March, Platelet Estimate ADEQUATE, RBC Morphology NORM C+C, Sodium 144, Potassium 3.7, Chloride 115 H, Carbon Dioxide 23.0, Anion Gap 6, BUN 33 H, Creatinine 1.50 H, Estim Creat Clear Calc 53.27, Est GFR (MDRD) Af Amer 60, Est GFR (MDRD) Non-Af 50 L, BUN/Creatinine Ratio 22.0 H, Glucose 100, Calcium 9.0 Micro: Microbiology 12/18/24 16:40 Sputum, Expectorated/Coughed Gram Stain - Final 12/18/24 16:40 Sputum, Expectorated/Coughed Respiratory Culture - Final Mixed normal respiratory ayah. No Streptococcus pneumoniae, beta-hemolytic Streptococcus or Staphylococcus aureus isolated. 12/17/24 15:35 Blood Culture (Wb) - Anticubital Right Bacteria Detection (PCR) - Final Streptococcus pneumoniae 12/17/24 15:35 Blood Culture (Wb) - Anticubital Right Blood Culture - Final Streptococcus pneumoniae 12/17/24 15:35 Blood Culture (Wb) - Left Forearm Blood Culture - Final Alpha Hemolytic Streptococcus Imaging Radiology Impression Brain CT 12/21/24 14:05 IMPRESSION: Mild atrophy. Questionable tiny petechial bleed in the anterior cortex of the right temporal lobe. One or more dose reduction techniques were used (e.g., Automated exposure control, adjustment of the mA and/or kV according to patient size, use of iterative reconstruction technique). Reading Location: [id number] Brain CT 12/22/24 05:55 IMPRESSION: 1. No evidence of acute intracranial abnormality. 2. No intracranial hemorrhage. The questionable petechial hemorrhage on the previous exam is likely artifactual. Reading Location: [facility] Charges/Coding Visit Charges Inpatient E&M: 91878 Init Hosp L3
[2024-12-22 11:18] LABS: T4 Free Direct 0.63 ng/dL (0.76-1.46)
[2024-12-22 11:37] LABS: BNP,B-Type NATRIURETIC PEPTIDE 237.9 pg/mL (0-100)
[2024-12-22 11:46] LABS: Procalcitonin 1.47 ng/mL (0.00-0.09)
[2024-12-22] MEDS: DiphenhydrAMINE 25 MG Capsule 50 MG PO (12:11)
--- NOTE | 2024-12-22 12:38 | NEURO.CONS ---
Assessment and Plan: Neuro Assessment/Plan LUZ MARIA CASTANO is a 69 M admitted for acute hypoxic respiratory failure due Flu and pneumonia was found to have an JOSÉ MANUEL, his hospital course was complicated by delerium, CT head showed tiny area of possible petechial hemorrahge that was not present in repeat images. Petechial hemorrhage likely an artifact no further work up delerium likey toxic metabolic in the setting of infection and JOSÉ MANUEL, delirium peculations correct metabolic abnormalities as per primary team could obtain an MRI if he cont to be altered HPI Consult Data Date of Consult: 12/22/24 HPI Narrative HPI Narrative: LUZ MARIA CASTANO, is a 69 M who presents acute respiratory failure was found to be Flu + and bacterial pneumonia, he was in afib with RVR. he also had an JOSÉ MANUEL and hospital delerium [facility] Medical History (Updated 12/22/24 @ 11:[address] Randall Isbell, DO) Hypertension Home Medications ?Medication ?Instructions ?Recorded ?Last Taken ?Type losartan 25 mg tablet 25 mg PO DAILY 12/17/24 12/16/24 History Allergy/AdvReac Type Severity Reaction Status Date / Time Penicillins Allergy Unknown Verified 12/17/24 12:58 Bhwftcq-VIH-XpS Reductase Allergy Other Verified 12/17/24 12:58 Inhibitor (Seffzix-Wxi-Nol Reductase Inhibitor) Social History Smoking Status: Current every day smoker tobacco type: cigarettes Vital Signs Vital Signs Vital Signs: 12/21/24 12:50 12/21/24 14:26 12/21/24 14:30 Temperature Temperature Source Pulse Rate 91 Pulse Strength Respiratory Rate 17 Respiratory Effort Respiratory Depth Respiratory Pattern Blood Pressure Blood Pressure Mean Blood Pressure Source Blood Pressure Position Blood Pressure Location Pulse Ox 94 94 Oxygen Delivery Method High Flow High Flow Oxygen Flow Rate (L/min) 8 8 Fraction of Inspired Oxygen (FIO2) 60 12/21/24 18:00 12/21/24 22:00 12/21/24 22:00 Temperature 97.9 F Temperature Source Temporal Pulse Rate 93 Pulse Strength Normal (2+) Respiratory Rate 22 H Respiratory Effort Normal Respiratory Depth Normal Respiratory Pattern Normal Blood Pressure 143/89 H Blood Pressure Mean 107 Blood Pressure Source Blood Pressure Position Blood Pressure Location Pulse Ox Oxygen Delivery Method High Flow High Flow Oxygen Flow Rate (L/min) 8 8 Fraction of Inspired Oxygen (FIO2) 12/21/24 22:00 12/21/24 22:03 12/22/24 04:00 Temperature 98.3 F 98.1 F Temperature Source Oral Oral Pulse Rate 87 87 82 Pulse Strength Respiratory Rate 16 16 Respiratory Effort Respiratory Depth Respiratory Pattern Blood Pressure 136/70 H 136/70 H 156/81 H Blood Pressure Mean 92 106 Blood Pressure Source Monitor Monitor Blood Pressure Position Supine Semi-Fowlers Blood Pressure Location Left Arm Left Arm Pulse Ox 93 94 Oxygen Delivery Method High Flow High Flow Oxygen Flow Rate (L/min) 8 8 Fraction of Inspired Oxygen (FIO2) 12/22/24 07:45 12/22/24 09:59 Temperature Temperature Source Pulse Rate 90 Pulse Strength Respiratory Rate Respiratory Effort Respiratory Depth Respiratory Pattern Blood Pressure Blood Pressure Mean Blood Pressure Source Blood Pressure Position Blood Pressure Location Pulse Ox 95 Oxygen Delivery Method High Flow Oxygen Flow Rate (L/min) 8 Fraction of Inspired Oxygen (FIO2) Weight Weight: 87.4 kg Body Mass Index (BMI) 25.0 EEG Results Procedure Details EEG Procedure Details: LUZ MARIA CASTANO is a 69 year old M with a past medical history of , who presents for evaluation of Electroencephalogram on DATE at TIME Physical Exam Neuro Neuro Narrative: awake alert oriented to self and place language intact face symmetric no focal weakenss move all ext antigravity with out a drift Lab / Micro Data 12/22/24 05:56 12/22/24 05:56 Labs: Laboratory Results - last 24 hr 12/20/24 06:37: Diff Path Review Reviewed 12/22/24 05:56: WBC 9.9, RBC 3.34 L, Hgb 9.5 L, Hct 30.0 L, MCV 89.8, MCH 28.4, MCHC 31.7 L, RDW Std Deviation 51.2 H, RDW Coeff of Whit 15.5 H, Plt Count 188, MPV 9.9, Neut % (Auto) Not Reportable, Absolute Neuts (auto) 7.1, Absolute Lymphs (auto) 1.60, Total Counted 100, Neutrophils % (Manual) 72 H, Lymphocytes % (Manual) 16 L, Monocytes % (Manual) 8, Metamyelocytes % 1, Myelocytes % 1 H, Promyelocytes % 1 H, Plasma Cell % (Manual) 1, Diff Path Review March, Platelet Estimate ADEQUATE, RBC Morphology NORM C+C, Sodium 144, Potassium 3.7, Chloride 115 H, Carbon Dioxide 23.0, Anion Gap 6, BUN 33 H, Creatinine 1.50 H, Estim Creat Clear Calc 53.27, Est GFR (MDRD) Af Amer 60, Est GFR (MDRD) Non-Af 50 L, BUN/Creatinine Ratio 22.0 H, Glucose 100, Calcium 9.0, B-Natriuretic Peptide 237.9 H, Procalcitonin 1.47 H, Free T4 0.63 L 12/22/24 10:40: Ammonia 53.0 H Micro: Microbiology 12/18/24 16:40 Sputum, Expectorated/Coughed Gram Stain - Final 12/18/24 16:40 Sputum, Expectorated/Coughed Respiratory Culture - Final Mixed normal respiratory aayh. No Streptococcus pneumoniae, beta-hemolytic Streptococcus or Staphylococcus aureus isolated. 12/17/24 15:35 Blood Culture (Wb) - Anticubital Right Bacteria Detection (PCR) - Final Streptococcus pneumoniae 12/17/24 15:35 Blood Culture (Wb) - Anticubital Right Blood Culture - Final Streptococcus pneumoniae 12/17/24 15:35 Blood Culture (Wb) - Left Forearm Blood Culture - Final Alpha Hemolytic Streptococcus Imaging Radiology Impression Brain CT 12/21/24 14:05 IMPRESSION: Mild atrophy. Questionable tiny petechial bleed in the anterior cortex of the right temporal lobe. One or more dose reduction techniques were used (e.g., Automated exposure control, adjustment of the mA and/or kV according to patient size, use of iterative reconstruction technique). Reading Location: [facility] Brain CT 12/22/24 05:55 IMPRESSION: 1. No evidence of acute intracranial abnormality. 2. No intracranial hemorrhage. The questionable petechial hemorrhage on the previous exam is likely artifactual. Reading Location: [facility] Active Medications Active Medications Active Medications: Current Medications Generic Name Dose Route Start Last Admin Trade Name Freq PRN Reason Stop Dose Admin Acetaminophen 650 mg 12/17/24 16:32 12/22/24 12:11 Acetaminophen 325 Mg Tablet PO 650 mg Q6H PRN PRN Administration Pain 1-10 Or Fever>100.7 Albuterol/Ipratropium 3 ml 12/22/24 11:30 Ipratropium/Albuterol Sulfate 3 Ml Ampul.Neb INHALATION Q6HWA.RT RITA Apixaban 5 mg 12/22/24 10:25 Apixaban 5 Mg Tablet PO BID RITA Vancomycin IV-PHARMACY TO DOSE 500 mls @ 250 mls/hr 12/18/24 05:40 1 each/ Sodium Chloride IV PRN PRN Rx to Dose Protocol Levofloxacin 750 mg in 150 mls @ 100 mls/hr 12/19/24 10:00 12/21/24 13:15 Levaquin Iv IV Infused Q48 RITA Infusion Vancomycin HCl 500 mg in 100 mls @ 100 mls/hr 12/21/24 08:00 12/21/24 21:52 IV Infused Q12H RITA Infusion Dextrose/Sodium Chloride 1,000 mls @ 125 mls/hr 12/21/24 12:45 12/22/24 09:59 IV 12/23/24 04:44 125 mls/hr .Q8H RITA Administration Protocol Levothyroxine Sodium 137 mcg 12/19/24 11:50 12/22/24 05:07 Levothyroxine 137 Mcg Tablet PO 137 mcg DAILY@0600 RITA Administration Lorazepam 0.5 mg 12/21/24 02:14 12/21/24 02:28 Lorazepam 2 Mg/Ml Syringe IV 0.5 mg X1 PRN Administration may give with BIPAP for anxiet Melatonin 3 mg 12/17/24 16:32 12/18/24 22:34 Melatonin 3 Mg Tablet PO 3 mg QHS PRN PRN Administration INSOMNIA Metoprolol Tartrate 25 mg 12/20/24 22:00 12/22/24 09:59 Metoprolol Tartrate 25 Mg Tablet PO 25 mg BID RITA Administration Protocol Ondansetron HCl 4 mg 12/17/24 16:32 12/19/24 15:00 Ondansetron 4 Mg/2 Ml Vial IV 4 mg Q8H PRN PRN Administration NAUSEA/VOMITING Potassium Phos/Sodium Phos 1 packet 12/19/24 12:10 12/22/24 09:59 Na Biphos/Potassium Phosphate Packet PO 1 packet BID RITA Administration Sodium Chloride 10 - 40 ml 12/17/24 16:41 12/22/24 05:07 0.9% Saline Lock 10 Ml Syringe IV 10 ml UD PRN Administration SALINE FLUSH Vancomycin Protocol 1 lab 12/22/24 18:30 Vancomycin Trough/Random Due 12/22/24 20:30 DAILY RITA
[2024-12-22] MEDS: Vancomycin IV 500 MG/100 ML BAG 100 MG IV (13:30)
[2024-12-22 13:42] LABS: Pathologist Review Reviewed
[2024-12-22] MEDS: APIXABAN 5 MG TABLET PO ×2 (18:07→20:40)
[2024-12-22 20:31] LABS: Vancomycin, Trough Level 11.4 ug/mL (5.0-15.0)
--- NOTE | 2024-12-22 20:55 | PCM.RX.CS ---
Consult Antibiotic Management Pharmacy has been consulted to manage selected antibiotic: Vancomycin Type of Intervention Type of Consult: Follow-up Labs Labs: Sodium 144 mmol/L (136-145) 12/22/24 05:56 Potassium 3.7 mmol/L (3.5-5.1) 12/22/24 05:56 Chloride 115 mmol/L (98-107) H 12/22/24 05:56 Carbon Dioxide 23.0 mmol/L (21.0-32.0) 12/22/24 05:56 Anion Gap 6 (5-15) 12/22/24 05:56 BUN 33 mg/dL (7-18) H 12/22/24 05:56 Creatinine 1.50 mg/dL (0.70-1.30) H 12/22/24 05:56 Est GFR (MDRD) Af Amer 60 mL/min (>60) 12/22/24 05:56 Est GFR (MDRD) Non-Af 50 mL/min (>60) L 12/22/24 05:56 BUN/Creatinine Ratio 22.0 RATIO (10-20) H 12/22/24 05:56 Glucose 100 mg/dL (74-106) 12/22/24 05:56 Vancomycin Trough 11.4 ug/mL (5.0-15.0) 12/22/24 19:45 Microbiology Microbiology: Microbiology 12/18/24 16:40 Sputum, Expectorated/Coughed Gram Stain - Final 12/18/24 16:40 Sputum, Expectorated/Coughed Respiratory Culture - Final Mixed normal respiratory ayah. No Streptococcus pneumoniae, beta-hemolytic Streptococcus or Staphylococcus aureus isolated. 12/17/24 15:35 Blood Culture (Wb) - Anticubital Right Bacteria Detection (PCR) - Final Streptococcus pneumoniae 12/17/24 15:35 Blood Culture (Wb) - Anticubital Right Blood Culture - Final Streptococcus pneumoniae 12/17/24 15:35 Blood Culture (Wb) - Left Forearm Blood Culture - Final Alpha Hemolytic Streptococcus 12/17/24 14:49 Urine, Clean Catch Legionella Antigen - Final 12/17/24 14:49 Urine, Clean Catch Streptococcus pneumoniae Antigen (M - Final 12/17/24 14:10 Mucosa - Nose SARS-CoV-2, Influenza & RSV (PCR) - Final Influenzae A Pharmacy Plan for Drug Dosing Pharmacy Plan for Drug Dosing: VANCOMYCIN LEVEL RECEIVED Current Vancomycin Dose: 500MG Q12 Number of Doses Received: 8 Vancomycin Level: 11.4 MG/DL Hours Since Last Dose: 6 Renal Function: SCr 1.5 mg/dL, CrCl 53 mL/min Renal Function Trend: improving Lab/Micro: alpha hemolytic step Vancomycin Plan/Comments: This morning's 0800 dose was not given until 1330, so the trough is only a 6 hour trough. However, it is already subtherapeutic at 11.4mg/dL (goal 15-20). Will go ahead and increase dose to 1000mg and get a level prior to 4th dose. Pending Level: 12/24/24 @ 0830 Pharmacy Service will continue to monitor and adjust dosing as required.
[2024-12-22] MEDS: Vancomycin IV 1,000 MG/200 ML BAG 200 MG IV (21:44)
[2024-12-23] VITALS (14 sets, daily range): BP systolic 132–155; BP diastolic 77–85; PULSE 79–93; RESP 17–28; TEMP 36.3–37.2; O2SAT 92–95
[2024-12-23] MEDS: DiphenhydrAMINE 25 MG Capsule 50 MG PO (00:55)
[2024-12-23] MEDS: Levothyroxine 137 MCG Tablet PO (05:54)
[2024-12-23 06:04] LABS: Hematocrit 28.4 % (40-54); Hemoglobin 9.2 g/dL (13.0-16.5); Mean Corp Hgb Conc 32.4 g/dL (32-36); Mean Corpuscular Hgb 29.2 pg (27.0-32.0); Mean Corpuscular Volume 90.2 fL (80-94); Mean Platelet Vol. 9.8 fl (6.2-12.0); POSITIVE COUNT YES; POSITIVE MORPHOLOGY YES; Platelet Count 221 K/mm3 (150-450); RBC Distribution Width CV 15.3 % (11.6-14.6); RBC Distribution Width SD 50.3 fl (35.1-43.9); Red Blood Count 3.15 M/mm3 (4.6-6.2); White Blood Count 8.5 K/mm3 (4.4-11.0)
[2024-12-23 06:54] LABS: Differential Indicated MANUAL DIFF
[2024-12-23 07:11] LABS: Anion Gap 6 (5-15); BUN 25 mg/dL (7-18); BUN/Creat Ratio 17.9 RATIO (10-20); Calcium,Total 8.3 mg/dL (8.5-10.1); Chloride 110 mmol/L (98-107); EST Glomerular Filtration Rate 54 mL/min (>60); Est Glom Filt Rate - Afr Amer 65 mL/min (>60); Estimated Creatinine Clearance 57.07 ml/min; Glucose 97 mg/dL (74-106); Magnesium 1.7 mg/dL (1.6-2.6); Phosphorus 3.5 mg/dL (2.5-4.9); Potassium 3.3 mmol/L (3.5-5.1); Sodium Level 142 mmol/L (136-145)
[2024-12-23] MEDS: APIXABAN 5 MG TABLET PO ×2 (09:18→21:52)
[2024-12-23] MEDS: Na Biphos/Potassium Phosphate PACKET 1 PACKET PO ×2 (09:18→21:52)
[2024-12-23] MEDS: Metoprolol Tartrate 25 MG Tablet PO ×2 (09:19→21:52)
[2024-12-23] MEDS: Vancomycin IV 1,000 MG/200 ML BAG 200 MG IV (09:20)
[2024-12-23] MEDS: 0.9% Saline Lock 10 ML Syringe IV ×2 (09:27→15:55)
[2024-12-23 09:35] LABS: Lymphocyte 18 % (19-41); Metamyelocyte 3 % (0-1); Monocyte 2 % (0-10); Myelocyte 2 % (0-0); Neutrophil-Band 1 % (0-5); Neutrophil-Segmented 74 % (47-70); Nucleated Red Bld Cells,Manual 1 % (0-5); Total Cells Counted 100 (MANUAL DIFF)
[2024-12-23 09:36] LABS: Absolute Lymphocyte Count 1.53 X10^3/uL (0.83-4.51); Absolute Neutrophil Count 6.4 X10^3/uL (2.0-7.7); Platelet Estimate ADEQUATE (ADEQ)
[2024-12-23 09:37] LABS: Red Cell Morphology NORM C+C NORMAL (NORM C&C)
--- NOTE | 2024-12-23 10:44 | PCM.PN.HOSP ---
Reason for Visit Reason for Visit: Diagnoses Influenza due to other identified influenza virus with other respiratory manifestations (12/17/24) Acute respiratory failure with hypoxia (12/17/24) Acute kidney failure, unspecified (12/17/24) Hypoxemia (12/17/24) Subjective Subjective Patient seen has a nonproductive cough. Still remains on high flow oxygen currently 8 L flow per minute. Kidney function continues to improve Objective Data Objective Data Vital Signs: Vital Signs Temp Pulse Resp BP Pulse Ox O2 Del Method O2 Flow Rate 97.5 F L 93 25 H 153/80 H 92 Nasal Cannula 8 12/23/24 09:10 12/23/24 09:19 12/23/24 09:10 12/23/24 09:19 12/23/24 09:10 12/23/24 09:10 12/23/24 09:10 FiO2 60 12/21/24 12:50 Oxygen Flow Rate (L/min) 8 Oxygen Delivery Method Nasal Cannula Weight: 87.4 kg Body Mass Index (BMI) 25.0 Intake & Output: Intake and Output for Last 24 Hours 12/21/24 12/22/24 12/23/24 23:59 23:59 23:59 Intake Total 1084.17 / 1144.17 2897.5 / 3297.5 1999 Output Total 500 / 500 1425 / 1425 750 / 750 Balance 584.17 / 644.17 1472.5 / 1872.5 1250 / 1250 Lab / Micro Data 12/23/24 05:29 12/23/24 05:29 Labs: Laboratory Results - last 24 hr 12/21/24 06:30: Diff Path Review Reviewed 12/22/24 05:56: B-Natriuretic Peptide 237.9 H, Procalcitonin 1.47 H, Free T4 0.63 L 12/22/24 10:40: Ammonia 53.0 H 12/22/24 19:45: Vancomycin Trough 11.4 12/23/24 05:29: WBC 8.5, RBC 3.15 L, Hgb 9.2 L, Hct 28.4 L, MCV 90.2, MCH 29.2, MCHC 32.4, RDW Std Deviation 50.3 H, RDW Coeff of Whit 15.3 H, Plt Count 221, MPV 9.8, Neut % (Auto) Not Reportable, Absolute Neuts (auto) 6.4, Absolute Lymphs (auto) 1.53, Total Counted 100, Neutrophils % (Manual) 74 H, Band Neutrophils % 1, Lymphocytes % (Manual) 18 L, Monocytes % (Manual) 2, Metamyelocytes % 3 H, Myelocytes % 2 H, Nucleated RBCs/100 WBC 1, Diff Path Review May foll, Platelet Estimate ADEQUATE, RBC Morphology NORM C+C, Sodium 142, Potassium 3.3 L, Chloride 110 H, Carbon Dioxide 25.0, Anion Gap 6, BUN 25 H, Creatinine 1.40 H, Estim Creat Clear Calc 57.07, Est GFR (MDRD) Af Amer 65, Est GFR (MDRD) Non-Af 54 L, BUN/Creatinine Ratio 17.9, Glucose 97, Calcium 8.3 L, Phosphorus 3.5, Magnesium 1.7 Micro: Microbiology 12/18/24 16:40 Sputum, Expectorated/Coughed Gram Stain - Final 12/18/24 16:40 Sputum, Expectorated/Coughed Respiratory Culture - Final Mixed normal respiratory ayah. No Streptococcus pneumoniae, beta-hemolytic Streptococcus or Staphylococcus aureus isolated. 12/17/24 15:35 Blood Culture (Wb) - Anticubital Right Bacteria Detection (PCR) - Final Streptococcus pneumoniae 12/17/24 15:35 Blood Culture (Wb) - Anticubital Right Blood Culture - Final Streptococcus pneumoniae 12/17/24 15:35 Blood Culture (Wb) - Left Forearm Blood Culture - Final Alpha Hemolytic Streptococcus 12/17/24 14:49 Urine, Clean Catch Legionella Antigen - Final 12/17/24 14:49 Urine, Clean Catch Streptococcus pneumoniae Antigen (M - Final 12/17/24 14:10 Mucosa - Nose SARS-CoV-2, Influenza & RSV (PCR) - Final Influenzae A Physical Exam Narrative GENERAL: cooperative but appears ill looking HEENT: Atraumatic; normocephalic EYES; Anicteric, Normal Conjunctiva NECK; supple, normal thyroid, RESPIRATORY: Diminished to auscultation CARDIOVASCULAR: Regular S1 S2, GI: soft, normoactive bowel sounds, : No Renal angle tenderness; EXTREMITIES: No edema, no clubbing, MUSCULOSKELETAL: no muscle wasting NEURO: Awake; no lateralizing signs. SKIN: No Rash PSYCH; Flat affect Assessment & Plan Assessment/Plan (1) Influenza A: (2) Hypoxia: (3) JOSÉ MANUEL (acute kidney injury): PLAN: Plan Patient is a 69-year-old male who presented [facility] ED on 12/17/2024 with flulike symptoms. 1. Acute hypoxic respiratory failure ? Secondary to acute influenza A infection with superimposed pneumonia. Patient started on noninvasive ventilation admitted to a monitored bed with treatment of the underlying clinical etiology ? 12/19/2024 patient had to be placed on Vapotherm given worsening hypoxia ? 12/22/2024; patient still remains significantly hypoxic currently on 8 L/min flow of oxygen. Repeat chest x-ray obtained the day prior did show Extensive right lung infiltrates, increased in the right upper lobe since the previous study. Consult was placed to pulmonary medicine given patient persistent hypoxia ? 12/23/2024; patient remains on high flow oxygen currently 8 L/min. Use of incentive spirometry encouraged 2. Acute influenza A infection ? Patient was started on Tamiflu ? 12/22/2024; patient has completed treatment with Tamiflu 3. Pneumonia - secondary to streptococcal pneumonia, Blood and sputum cultures sent. Patient blood cultures came back positive for streptococcal pneumonia. Patient had been started on Levaquin on admission we will continue 4. Acute kidney injury ? Secondary to prerenal azotemia from severe dehydration patient started on IV hydration with subsequent monitoring of electrolytes ordered. As part of his management renal ultrasound was ordered ? 12/22/2024; renal ultrasound demonstrated normal kidneys. Patient creatinine down to 2.5. ? 12/22/2024; creatinine down to 1.5 5. Mild hyponatremia ? Secondary to hypovolemic hyponatremia started on IV hydration with subsequent monitoring of electrolytes ordered ? 12/22/2024; sodium levels down to 144 with D5 half-normal saline 6. Moderate to severe mitral valve regurgitation due to mitral valve prolapse ? Follows with outpatient cardiology. Last echo in March 2024 showed +3 mitral regurg due to prolapse but LV systolic function and size were normal. BNP ordered. Repeat echo ordered as well. 7. Paroxysmal A-fib ? Possibly preceded by patient underlying pneumonia as well as influenza A as well as severe hypothyroidism. Patient was started on amiodarone drip. Discontinued given patient severe hypothyroidism. Patient started on low-dose Cardizem ? Patient heart rate remains controlled on metoprolol currently in sinus rhythm. Patient had been started on apixaban which was held given personable petechial hemorrhage. Patient apixaban resumed starting 12/22/2024. Patient [id number] score is 2 8. New onset hypothyroidism ? TSH obtained Came back at 72.9. Patient started on levothyroxine 9. Hypokalemia -Corrected per protocol 10. Pericardial effusion ? Found on CT of the chest. An echo was ordered for subsequent evaluation. 12/19/2024; 2D echo obtained the day prior did show Normal LV size. The left ventricular ejection fraction is 55 %. Stage 1 diastolic dysfunction. Small (<1.0 cm) pericardial effusion.There are no echocardiographic indications of cardiac tamponade. Focal area in the subcostal region with moderate effusion.. 11. Anemia ? Secondary to chronic disorder monitoring H&H and transfuse if patient becomes symptomatic or hemoglobin falls below 7 12. Mild thrombocytopenia ? Platelet count on admission was 101. Monitoring with daily CBC with differential 13. Acute cystitis ? Patient started on Levaquin 14. Hypertension ? Patient had recently been started on losartan this was discontinued given his impaired kidney function subsequently ordered hydralazine 15. DVT prophylaxis ? Patient is on apixaban ? 12/21/2024; apixaban discontinued. CAT scan findings. 16. Acute delirium ? Suspected to be secondary to metabolic encephalopathy from patient multiple medical issues including severe hypothyroidism, pneumonia and acute kidney injury. As part of patient's management ordered CT of the head. CT of the head came back revealing questionable questionable tiny petechial bleed in the anterior cortex of the right temporal lobe. Patient is on apixaban discontinued. Consult was placed to [facility] -12/22/2024; repeat head CT this a.m. demonstrated No evidence of acute intracranial abnormality. No intracranial hemorrhage. The questionable petechial hemorrhage on the previous exam is likely artifactual. Findings discussed with family ? 12/23/2024; patient delirium improving Time spent in the patient's overall evaluation,decision-making process, review of diagnostic data, adjustment of management, discussion with other providers, nursing nursing and ancillary staff involved in patient's care documentation, 40 Minutes Charges/Coding Visit Charges Inpatient E&M: 64674 Subs Hosp L2
[2024-12-23] MEDS: Potassium Chloride Oral Tablet 20 MEQ PO ×2 (11:02→15:55)
--- NOTE | 2024-12-23 13:55 | PN.CC_ITS ---
Objective Data Objective Data Vital Signs: Vital Signs Last response 3 Temperature 36.4 C L 12/23/24 09:10 Temperature Source Temporal 12/23/24 09:10 Pulse Rate 93 12/23/24 09:19 Pulse Strength Normal (2+) 12/23/24 09:00 Respiratory Rate 25 H 12/23/24 09:10 Respiratory Effort Normal, Non-Labored 12/23/24 09:05 Respiratory Depth Normal 12/23/24 09:05 Respiratory Pattern Normal 12/23/24 09:05 Blood Pressure 153/80 H 12/23/24 09:19 Blood Pressure Mean 104 12/23/24 09:10 Blood Pressure Source Monitor 12/23/24 09:10 Blood Pressure Position Sitting 12/23/24 09:10 Blood Pressure Location Right Arm 12/23/24 09:10 Pulse Ox 92 12/23/24 09:10 Oxygen Delivery Method Nasal Cannula 12/23/24 09:10 Oxygen Flow Rate (L/min) 8 12/23/24 09:10 Fraction of Inspired Oxygen (FIO2) 60 12/21/24 12:50 I&O: I&O Last 24 Hours 3 12/22/24 12/23/24 12/23/24 23:59 11:59 23:59 Intake Total 1340 / 3297.5 2200 / 2560 360 / 2560 Output Total 350 / 1425 750 / 750 Balance 990 / 1872.5 1450 / 1810 360 / 1810 I&O: Total Stay 3 12/17/24 12:51 thru 12/23/24 12:22 Intake Total 59589.95 Output Total 6775 Balance 8941.95 Current Meds Ordered / Administered: Current meds ordered / Administered 3 Generic Name Dose Route Start Last Admin Trade Name Freq PRN Reason Stop Dose Admin Acetaminophen 650 mg 12/17/24 16:32 12/22/24 12:11 Acetaminophen 325 Mg Tablet PO 650 mg Q6H PRN PRN Administration Pain 1-10 Or Fever>100.7 Albuterol/Ipratropium 3 ml 12/22/24 11:30 Ipratropium/Albuterol Sulfate 3 Ml Ampul.Neb INHALATION Q6HWA.RT RITA Apixaban 5 mg 12/22/24 10:25 12/23/24 09:18 Apixaban 5 Mg Tablet PO 5 mg BID RITA Administration Levofloxacin 750 mg 12/24/24 06:00 Levofloxacin 750 Mg Tablet PO DAILY@0600 [facility] Levothyroxine Sodium 137 mcg 12/19/24 11:50 12/23/24 05:54 Levothyroxine 137 Mcg Tablet PO 137 mcg DAILY@0600 [facility] Administration Lorazepam 0.5 mg 12/21/24 02:14 12/21/24 02:28 Lorazepam 2 Mg/Ml Syringe IV 0.5 mg X1 PRN Administration may give with BIPAP for anxiet Melatonin 3 mg 12/17/24 16:32 12/18/24 22:34 Melatonin 3 Mg Tablet PO 3 mg QHS PRN PRN Administration INSOMNIA Metoprolol Tartrate 25 mg 12/20/24 22:00 12/23/24 09:19 Metoprolol Tartrate 25 Mg Tablet PO 25 mg BID RITA Administration Protocol Ondansetron HCl 4 mg 12/17/24 16:32 12/19/24 15:00 Ondansetron 4 Mg/2 Ml Vial IV 4 mg Q8H PRN PRN Administration NAUSEA/VOMITING Potassium Chloride 20 meq 12/23/24 10:45 12/23/24 11:02 Potassium Chloride Oral Tablet 20 Meq PO 20 meq BIDCM RITA Administration Potassium Phos/Sodium Phos 1 packet 12/19/24 12:10 12/23/24 09:18 Na Biphos/Potassium Phosphate Packet PO 1 packet BID RITA Administration Sodium Chloride 10 - 40 ml 12/17/24 16:41 12/23/24 09:27 0.9% Saline Lock 10 Ml Syringe IV 10 ml UD PRN Administration SALINE FLUSH Lab / Micro Data Attestation: I reviewed the patient's lab results. 12/23/24 05:29 12/23/24 05:29 Labs: Laboratory Results - last 24 hr 12/22/24 19:45: Vancomycin Trough 11.4 12/23/24 05:29: WBC 8.5, RBC 3.15 L, Hgb 9.2 L, Hct 28.4 L, MCV 90.2, MCH 29.2, MCHC 32.4, RDW Std Deviation 50.3 H, RDW Coeff of Whit 15.3 H, Plt Count 221, MPV 9.8, Neut % (Auto) Not Reportable, Absolute Neuts (auto) 6.4, Absolute Lymphs (auto) 1.53, Total Counted 100, Neutrophils % (Manual) 74 H, Band Neutrophils % 1, Lymphocytes % (Manual) 18 L, Monocytes % (Manual) 2, Metamyelocytes % 3 H, M yelocytes % 2 H, Nucleated RBCs/100 WBC 1, Diff Path Review May foll, Platelet Estimate ADEQUATE, RBC Morphology NORM C+C, Sodium 142, Potassium 3.3 L, C hloride 110 H, Carbon Dioxide 25.0, Anion Gap 6, BUN 25 H, Creatinine 1.40 H, Estim Creat Clear Calc 57.07, Est GFR (MDRD) Af Amer 65, Est GFR (MDRD) Non-Af 54 L, BUN/Creatinine Ratio 17.9, Glucose 97, Calcium 8.3 L, Phosphorus 3.5, Magnesium 1.7 Assessment and Plan . Assessment and plan: IMPRESSIONS: 1. Acute hypoxemic respiratory failure; multifactorial with influenza, pneumococcal pneumonia, possible underlying COPD 2. Valvular heart disease/paroxysmal atrial fibrillation/new onset hypothyroidism/hypertension/chronic tobacco dependency Complicates care, management, recovery and prognosis. The patient has already been initiated on Synthroid. Recommend that physical therapy work with the patient. Smoking cessation is highly advisable. RECOMMENDATIONS: 1. Supplemental oxygen to maintain saturations at or above 90%. 2. Continue antimicrobial therapy. 3. The patient has completed his Tamiflu course. 4. Scheduled bronchodilators. 6. Encourage incentive spirometer use and mobilize patient as tolerated. 7. Physical therapy to evaluate the patient. Critical Care Time: 50 minutes The entirety of this encounter was done via Telemedicine Physical Exam Const Orientation / Consciousness: confused and lethargic Exam Limitations: other limitations HEENT head/scalp atraumatic General Ear: hearing grossly impaired Eyes PERRL Neck no JVD Subjective Subjective Very hearing impaired limits interview, SpO2 is satisfactory albeit ion high flow NCO2 @ 8L/min. Daughter states he has been having more profound orientation and memory issues since hospitlaized 6 days ago and these were NOT issues for him prior to admission.
[2024-12-24] VITALS (13 sets, daily range): BP systolic 124–153; BP diastolic 78–85; PULSE 77–93; RESP 15–23; TEMP 36.7–37.1; O2SAT 92–96
[2024-12-24] MEDS: Levothyroxine 137 MCG Tablet PO (05:14)
[2024-12-24] MEDS: levoFLOXacin 750 MG Tablet PO (05:14)
--- NOTE | 2024-12-24 07:42 | PN.HOSP_ITS ---
Reason for Visit Reason for Visit: Diagnoses Influenza due to other identified influenza virus with other respiratory manifestations (12/17/24) Acute respiratory failure with hypoxia (12/17/24) Acute kidney failure, unspecified (12/17/24) Hypoxemia (12/17/24) Subjective Subjective Patient seen continues to improve currently down to 6 L flow per minute. Ordered repeat chest x-ray and repeat TSH Objective Data Objective Data Vital Signs: Vital Signs Temp Pulse Resp BP Pulse Ox O2 Del Method O2 Flow Rate 98.8 F 80 18 153/83 H 95 High Flow 8 12/24/24 03:46 12/24/24 03:46 12/24/24 03:46 12/24/24 03:46 12/24/24 07:28 12/24/24 07:28 12/24/24 07:28 FiO2 60 12/21/24 12:50 Oxygen Flow Rate (L/min) 8 Oxygen Delivery Method High Flow Weight: 87.4 kg Body Mass Index (BMI) 25.0 Intake & Output: Intake and Output for Last 24 Hours 12/22/24 12/23/24 12/24/24 23:59 23:59 23:59 Intake Total 2897.5 / 3297.5 2800 / 2800 120 / 120 Output Total 1425 / 1425 750 / 750 350 / 350 Balance 1472.5 / 1872.5 2049 / 2049 -230 / -230 Lab / Micro Data 12/24/24 07:09 12/24/24 07:09 Labs: Laboratory Results - last 24 hr 12/23/24 05:29: Absolute Neuts (auto) 6.4, Absolute Lymphs (auto) 1.53, Total Counted 100, Neutrophils % (Manual) 74 H, Band Neutrophils % 1, Lymphocytes % (Manual) 18 L, Monocytes % (Manual) 2, Metamyelocytes % 3 H, Myelocytes % 2 H, Nucleated RBCs/100 WBC 1, Diff Path Review March, Platelet Estimate ADEQUATE, RBC Morphology NORM C+C Micro: Microbiology 12/18/24 16:40 Sputum, Expectorated/Coughed Gram Stain - Final 12/18/24 16:40 Sputum, Expectorated/Coughed Respiratory Culture - Final Mixed normal respiratory ayah. No Streptococcus pneumoniae, beta-hemolytic Streptococcus or Staphylococcus aureus isolated. 12/17/24 15:35 Blood Culture (Wb) - Anticubital Right Bacteria Detection (PCR) - Final Streptococcus pneumoniae 12/17/24 15:35 Blood Culture (Wb) - Anticubital Right Blood Culture - Final Streptococcus pneumoniae 12/17/24 15:35 Blood Culture (Wb) - Left Forearm Blood Culture - Final Alpha Hemolytic Streptococcus 12/17/24 14:49 Urine, Clean Catch Legionella Antigen - Final 12/17/24 14:49 Urine, Clean Catch Streptococcus pneumoniae Antigen (M - Final 12/17/24 14:10 Mucosa - Nose SARS-CoV-2, Influenza & RSV (PCR) - Final Influenzae A Physical Exam Narrative GENERAL: cooperative but appears ill looking HEENT: Atraumatic; normocephalic EYES; Anicteric, Normal Conjunctiva NECK; supple, normal thyroid, RESPIRATORY: Diminished to auscultation CARDIOVASCULAR: Regular S1 S2, GI: soft, normoactive bowel sounds, : No Renal angle tenderness; EXTREMITIES: No edema, no clubbing, MUSCULOSKELETAL: no muscle wasting NEURO: Awake; no lateralizing signs. SKIN: No Rash PSYCH; Flat affect Assessment & Plan Assessment/Plan (1) Influenza A: (2) Hypoxia: (3) JOSÉ MANUEL (acute kidney injury): PLAN: Plan Patient is a 69-year-old male who presented [facility] ED on 12/17/2024 with flulike symptoms. 1. Acute hypoxic respiratory failure ? Secondary to acute influenza A infection with superimposed pneumonia. Patient started on noninvasive ventilation admitted to a monitored bed with treatment of the underlying clinical etiology ? 12/19/2024 patient had to be placed on Vapotherm given worsening hypoxia ? 12/22/2024; patient still remains significantly hypoxic currently on 8 L/min flow of oxygen. Repeat chest x-ray obtained the day prior did show Extensive right lung infiltrates, increased in the right upper lobe since the previous study. Consult was placed to pulmonary medicine given patient persistent hypoxia ? 12/23/2024; patient remains on high flow oxygen currently 8 L/min. Use of incentive spirometry encouraged ? 12/24/2024; oxygen requirements down to 6 L flow per minute. Patient will be ready for discharge when oxygen requirement drops to 3-4 and will most likely require oxygen on discharge 2. Acute influenza A infection ? Patient was started on Tamiflu ? 12/22/2024; patient has completed treatment with Tamiflu 3. Pneumonia - secondary to streptococcal pneumonia, Blood and sputum cultures sent. Patient blood cultures came back positive for streptococcal pneumonia. Patient had been started on Levaquin on admission we will continue 4. Acute kidney injury ? Secondary to prerenal azotemia from severe dehydration patient started on IV hydration with subsequent monitoring of electrolytes ordered. As part of his management renal ultrasound was ordered ? 12/22/2024; renal ultrasound demonstrated normal kidneys. Patient creatinine down to 2.5. ? 12/22/2024; creatinine down to 1.5 5. Mild hyponatremia ? Secondary to hypovolemic hyponatremia started on IV hydration with subsequent monitoring of electrolytes ordered ? 12/22/2024; sodium levels down to 144 with D5 half-normal saline 6. Moderate to severe mitral valve regurgitation due to mitral valve prolapse ? Follows with outpatient cardiology. Last echo in March 2024 showed +3 mitral regurg due to prolapse but LV systolic function and size were normal. BNP ordered. Repeat echo ordered as well. 7. Paroxysmal A-fib ? Possibly preceded by patient underlying pneumonia as well as influenza A as well as severe hypothyroidism. Patient was started on amiodarone drip. Discontinued given patient severe hypothyroidism. Patient started on low-dose Cardizem ? Patient heart rate remains controlled on metoprolol currently in sinus rhythm. Patient had been started on apixaban which was held given personable petechial hemorrhage. Patient apixaban resumed starting 12/22/2024. Patient [id number] score is 2 8. New onset hypothyroidism ? TSH obtained Came back at 72.9. Patient started on levothyroxine 9. Hypokalemia -Corrected per protocol 10. Pericardial effusion ? Found on CT of the chest. An echo was ordered for subsequent evaluation. 12/19/2024; 2D echo obtained the day prior did show Normal LV size. The left ventricular ejection fraction is 55 %. Stage 1 diastolic dysfunction. Small (<1.0 cm) pericardial effusion.There are no echocardiographic indications of cardiac tamponade. Focal area in the subcostal region with moderate effusion.. 11. Anemia ? Secondary to chronic disorder monitoring H&H and transfuse if patient becomes symptomatic or hemoglobin falls below 7 12. Mild thrombocytopenia ? Platelet count on admission was 101. Monitoring with daily CBC with differential 13. Acute cystitis ? Patient started on Levaquin 14. Hypertension ? Patient had recently been started on losartan this was discontinued given his impaired kidney function subsequently ordered hydralazine 15. Tobacco dependence ? Counseled on cessation, offered nicotine patch for tobacco cravings 16. Acute delirium ? Suspected to be secondary to metabolic encephalopathy from patient multiple medical issues including severe hypothyroidism, pneumonia and acute kidney injury. As part of patient's management ordered CT of the head. CT of the head came back revealing questionable questionable tiny petechial bleed in the anterior cortex of the right temporal lobe. Patient is on apixaban discontinued. Consult was [facility] to [facility] -12/22/2024; repeat head CT this a.m. demonstrated No evidence of acute intracranial abnormality. No intracranial hemorrhage. The questionable petechial hemorrhage on the previous exam is likely artifactual. Findings discussed with family ? 12/23/2024; patient delirium improving ? 12/24/2023; delirium resolved 17. DVT prophylaxis ? On apixaban Time spent in the patient's overall evaluation,decision-making process, review of diagnostic data, adjustment of management, discussion with other providers, nursing nursing and ancillary staff involved in patient's care documentation, 36 Minutes Charges/Coding Visit Charges Inpatient E&M: 54952 Subs Hosp L2
[2024-12-24 07:44] LABS: Hematocrit 32.1 % (40-54); Hemoglobin 10.3 g/dL (13.0-16.5); Mean Corp Hgb Conc 32.1 g/dL (32-36); Mean Corpuscular Volume 90.4 fL (80-94); Mean Platelet Vol. 9.9 fl (6.2-12.0); POSITIVE COUNT YES; POSITIVE MORPHOLOGY YES; Platelet Count 276 K/mm3 (150-450); RBC Distribution Width CV 14.9 % (11.6-14.6); RBC Distribution Width SD 49.3 fl (35.1-43.9); Red Blood Count 3.55 M/mm3 (4.6-6.2); White Blood Count 9.5 K/mm3 (4.4-11.0)
[2024-12-24 07:54] LABS: Differential Indicated MANUAL DIFF
[2024-12-24 08:42] LABS: Anion Gap 5 (5-15); BUN 26 mg/dL (7-18); BUN/Creat Ratio 18.4 RATIO (10-20); Calcium,Total 8.8 mg/dL (8.5-10.1); Chloride 110 mmol/L (98-107); Creatinine, Serum 1.41 mg/dL (0.70-1.30); EST Glomerular Filtration Rate 53 mL/min (>60); Est Glom Filt Rate - Afr Amer 64 mL/min (>60); Estimated Creatinine Clearance 56.67 ml/min; Glucose 88 mg/dL (74-106); Potassium 3.8 mmol/L (3.5-5.1); Sodium Level 140 mmol/L (136-145)
[2024-12-24] MEDS: Potassium Chloride Oral Tablet 20 MEQ PO ×2 (09:35→17:16)
[2024-12-24] MEDS: APIXABAN 5 MG TABLET PO ×2 (09:36→20:26)
[2024-12-24] MEDS: Metoprolol Tartrate 25 MG Tablet PO ×2 (09:36→20:25)
[2024-12-24] MEDS: Na Biphos/Potassium Phosphate PACKET 1 PACKET PO ×2 (09:36→20:27)
--- NOTE | 2024-12-24 09:53 | RAD_ITS ---
PROCEDURE: CHEST 1 VIEW (PORTABLE) REASON FOR EXAM: Lung disease TECHNIQUE: Frontal view of the chest. COMPARISON: Reviewed FINDINGS: Stable heterogeneous airspace opacities throughout the right hemithorax, unchanged from priors. Small right pleural effusion is suggested. Left lung grossly clear. Cardiomediastinal silhouette is abnormal but stable. No pneumothorax. RAD/Chest 1 View (Portable) IMPRESSION: As above.. Reading [facility]
[2024-12-24 10:39] LABS: Lymphocyte 12 % (19-41); Metamyelocyte 3 % (0-1); Monocyte 4 % (0-10); Myelocyte 1 % (0-0); Neutrophil-Band 1 % (0-5); Neutrophil-Segmented 79 % (47-70); Total Cells Counted 100 (MANUAL DIFF)
[2024-12-24 10:40] LABS: Absolute Lymphocyte Count 1.14 X10^3/uL (0.83-4.51); Absolute Neutrophil Count 7.6 X10^3/uL (2.0-7.7); Platelet Estimate ADEQUATE (ADEQ); Red Cell Morphology NORM C+C NORMAL (NORM C&C)
--- NOTE | 2024-12-24 13:35 | PN.CC_ITS ---
Objective Data Objective Data Vital Signs: Vital Signs Last response 3 Temperature 36.7 C 12/24/24 11:55 Temperature Source Temporal 12/24/24 11:55 Pulse Rate 77 12/24/24 11:55 Pulse Strength Normal (2+) 12/24/24 08:28 Respiratory Rate 15 12/24/24 11:55 Respiratory Effort Normal, Non-Labored 12/24/24 08:28 Respiratory Depth Normal 12/24/24 08:28 Respiratory Pattern Normal 12/24/24 08:28 Blood Pressure 124/78 H 12/24/24 11:55 Blood Pressure Mean 93 12/24/24 11:55 Blood Pressure Source Monitor 12/24/24 11:55 Blood Pressure Position Semi-Fowlers 12/24/24 11:55 Blood Pressure Location Left Arm 12/24/24 11:55 Pulse Ox 92 12/24/24 13:25 Oxygen Delivery Method High Flow 12/24/24 11:55 Oxygen Flow Rate (L/min) 5 12/24/24 13:25 Fraction of Inspired Oxygen (FIO2) 60 12/21/24 12:50 I&O: I&O Last 24 Hours 3 12/23/24 12/24/24 12/24/24 23:59 11:59 23:59 Intake Total 600 / 2800 360 / 360 Output Total 350 / 350 Balance 600 / 2050 I&O: Total Stay 3 12/17/24 12:51 thru 12/24/24 11:51 Intake Total 91289.95 Output Total 7125 Balance 9191.95 Current Meds Ordered / Administered: Current meds ordered / Administered 3 Generic Name Dose Route Start Last Admin Trade Name Franciscoq PRN Reason Stop Dose Admin Acetaminophen 650 mg 12/17/24 16:32 12/22/24 12:11 Acetaminophen 325 Mg Tablet PO 650 mg Q6H PRN PRN Administration Pain 1-10 Or Fever>100.7 Albuterol/Ipratropium 3 ml 12/22/24 11:30 Ipratropium/Albuterol Sulfate 3 Ml Ampul.Neb INHALATION Q6HWA.RT RITA Apixaban 5 mg 12/22/24 10:25 12/24/24 09:36 Apixaban 5 Mg Tablet PO 5 mg BID RITA Administration Levofloxacin 750 mg 12/24/24 06:00 12/24/24 05:14 Levofloxacin 750 Mg Tablet PO 750 mg DAILY@0600 RITA Administration Levothyroxine Sodium 137 mcg 12/19/24 11:50 12/24/24 05:14 Levothyroxine 137 Mcg Tablet PO 137 mcg DAILY@0600 RITA Administration Lorazepam 0.5 mg 12/21/24 02:14 12/21/24 02:28 Lorazepam 2 Mg/Ml Syringe IV 0.5 mg X1 PRN Administration may give with BIPAP for anxiet Melatonin 3 mg 12/17/24 16:32 12/18/24 22:34 Melatonin 3 Mg Tablet PO 3 mg QHS PRN PRN Administration INSOMNIA Metoprolol Tartrate 25 mg 12/20/24 22:00 12/24/24 09:36 Metoprolol Tartrate 25 Mg Tablet PO 25 mg BID RITA Administration Protocol Ondansetron HCl 4 mg 12/17/24 16:32 12/19/24 15:00 Ondansetron 4 Mg/2 Ml Vial IV 4 mg Q8H PRN PRN Administration NAUSEA/VOMITING Potassium Chloride 20 meq 12/23/24 10:45 12/24/24 09:35 Potassium Chloride Oral Tablet 20 Meq PO 20 meq BIDCM RITA Administration Potassium Phos/Sodium Phos 1 packet 12/19/24 12:10 12/24/24 09:36 Na Biphos/Potassium Phosphate Packet PO 1 packet BID RITA Administration Sodium Chloride 10 - 40 ml 12/17/24 16:41 12/23/24 15:55 0.9% Saline Lock 10 Ml Syringe IV 10 ml UD PRN Administration SALINE FLUSH Lab / Micro Data Attestation: I reviewed the patient's lab results. 12/24/24 07:09 12/24/24 07:09 Labs: Laboratory Results - last 24 hr 12/24/24 07:09: WBC 9.5, RBC 3.55 L, Hgb 10.3 L, Hct 32.1 L, MCV 90.4, MCH 29.0, MCHC 32.1, RDW Std Deviation 49.3 H, RDW Coeff of Whit 14.9 H, Plt Count 276, MPV 9.9, Neut % (Auto) Not Reportable, Absolute Neuts (auto) 7.6, Absolute Lymphs (auto) 1.14, Total Counted 100, Neutrophils % (Manual) 79 H, Band Neutrophils % 1, Lymphocytes % (Manual) 12 L, Monocytes % (Manual) 4, Metamyelocytes % 3 H, M yelocytes % 1 H, Diff Path Review March foll, Platelet Estimate ADEQUATE, RBC Morphology NORM C+C, Sodium 140, Potassium 3.8, Chloride 110 H, Carbon Dioxide 25.0, Anion Gap 5, BUN 26 H, Creatinine 1.41 H, Estim Creat Clear Calc 56.67, Est GFR (MDRD) Af Amer 64, Est GFR (MDRD) Non-Af 53 L, BUN/Creatinine Ratio 18.4, Glucose 88, Calcium 8.8 Imaging Radiology Impression Chest X-Ray 12/24/24 09:53 IMPRESSION: As above.. Reading Location: [facility] Assessment and Plan . Assessment and plan: 1. Acute hypoxemic respiratory failure; multifactorial with influenza, pneumococcal pneumonia, possible underlying COPD 2. hearing impairment 3. possible dementia 4. Valvular heart disease/paroxysmal atrial fibrillation/new onset hypothyroidism/hypertension/chronic tobacco dependency Complicates care, management, recovery and prognosis. The patient has already been initiated on Synthroid. Recommend that physical therapy work with the patient. Smoking cessation is highly advisable. RECOMMENDATIONS: 1. Supplemental oxygen to maintain saturations at or above 90%. 2. Continue antimicrobial therapy. 3. The patient has completed his Tamiflu course. 4. Scheduled bronchodilators. 6. Encourage incentive spirometer use and mobilize patient as tolerated. 7. Physical therapy to evaluate the patient. Critical Care Time: 50 The entirety of this encounter was done via Telemedicine Physical Exam Const alert and oriented x3 HEENT normocephalic General Ear: hearing grossly impaired Neck full ROM Subjective Subjective Seems to be improving, O2 weaned to 5-6 L/min.
[2024-12-24] MEDS: 0.9% Saline Lock 10 ML Syringe IV (20:26)
[2024-12-25] VITALS (12 sets, daily range): BP systolic 138–162; BP diastolic 78–83; PULSE 71–90; RESP 18–24; TEMP 36.6–37; O2SAT 85–96
[2024-12-25] MEDS: Levothyroxine 137 MCG Tablet PO (05:53)
[2024-12-25] MEDS: levoFLOXacin 750 MG Tablet PO (05:53)
[2024-12-25 06:30] LABS: Absolute Lymphocyte Count 1.36 X10^3/uL (0.83-4.51); Absolute Neutrophil Count 6.9 X10^3/uL (2.0-7.7); Basophil# 0.03 X10^3/uL; Basophil% 0.3 % (0-1); Eosinophil# 0.01 X10^3/uL; Eosinophils% 0.1 % (0-5); Hematocrit 30.8 % (40-54); Hemoglobin 10.1 g/dL (13.0-16.5); Lymphocyte # 1.36 X10^3/ul (0.83-4.51); Lymphocyte % 15.3 % (19-41); Mean Corp Hgb Conc 32.8 g/dL (32-36); Mean Corpuscular Hgb 29.7 pg (27.0-32.0); Mean Corpuscular Volume 90.6 fL (80-94); Mean Platelet Vol. 9.9 fl (6.2-12.0); Monocyte# 0.36 X10^3/uL; Monocyte% 4.1 % (0-10); NRBC Flagged by Analyzer 0 % (0-5); Neutrophil # 6.85 X10^3/uL (2.7-7.7); Neutrophil % 77.2 % (47-70); Platelet Count 274 K/mm3 (150-450); RBC Distribution Width CV 14.8 % (11.6-14.6); RBC Distribution Width SD 49.4 fl (35.1-43.9); White Blood Count 8.9 K/mm3 (4.4-11.0)
[2024-12-25 06:58] LABS: Anion Gap 7 (5-15); BUN 31 mg/dL (7-18); BUN/Creat Ratio 22.1 RATIO (10-20); Calcium,Total 8.9 mg/dL (8.5-10.1); Chloride 111 mmol/L (98-107); EST Glomerular Filtration Rate 54 mL/min (>60); Est Glom Filt Rate - Afr Amer 65 mL/min (>60); Estimated Creatinine Clearance 57.07 ml/min; Glucose 85 mg/dL (74-106); Potassium 3.9 mmol/L (3.5-5.1); Sodium Level 142 mmol/L (136-145)
[2024-12-25] MEDS: Potassium Chloride Oral Tablet 20 MEQ PO ×2 (09:55→16:33)
[2024-12-25] MEDS: Na Biphos/Potassium Phosphate PACKET 1 PACKET PO ×2 (09:55→21:25)
[2024-12-25] MEDS: Metoprolol Tartrate 25 MG Tablet PO ×2 (09:55→21:25)
[2024-12-25] MEDS: APIXABAN 5 MG TABLET PO ×2 (10:58→21:25)
--- NOTE | 2024-12-25 11:31 | PCM.PN.INT ---
Assessment & Plan Assessment/Plan (1) Acute hypoxemic respiratory failure: PLAN: Plan RECOMMENDATIONS: 1. Supplemental oxygen to maintain saturations at or above 90%. 2. Continue antimicrobial therapy to complete 7 days of therapy. 3. The patient has completed his Tamiflu course. 4. Continue scheduled bronchodilators. 5. Perform walking oximetry study prior to consideration for discharge home. 6. Encourage incentive spirometer use and mobilize patient as tolerated. 7. Recommend outpatient pulmonary follow-up after discharge. IMPRESSIONS: 1. Acute hypoxemic respiratory failure Most likely multifactorial in etiology with acute influenza A infection coupled with superimposed pneumococcal pneumonia contributing. In addition, the patient does have an extensive tobacco abuse history and may certainly have an underlying component of obstructive lung disease, that has never been diagnosed. The patient has completed a treatment course of Tamiflu and remains on antimicrobials, which should be continued to complete 7 days of therapy. In the interim, we will continue scheduled bronchodilators and continue to wean supplemental oxygen to maintain saturations at or above 90%. Recommend performing walking oximetry study prior to consideration for discharge home. Ultimately, the patient would benefit from outpatient pulmonary follow-up after discharge so that baseline PFTs can be obtained and routine lung cancer screening performed. 2. Valvular heart disease/paroxysmal atrial fibrillation/new onset hypothyroidism/hypertension/chronic tobacco dependency Complicates care, management, recovery and prognosis. Continue Synthroid as prescribed. Smoking cessation is highly advisable. This note was generated with [employer] dictation software. It may contain incorrect words, spelling, and punctuation that were not noted in checking the note before signing. Subjective Subjective The patient was seen and examined at the bedside this morning. Events from the last 24 hours have been reviewed. The patient is currently afebrile, hemodynamically stable and maintaining appropriate oxygen saturations on 3 L/min via nasal cannula. The patient continues to improve clinically on a daily basis. White blood cell count is normal this morning. Hemoglobin and platelet count are stable. Creatinine is stable at 1.4. Objective Data Objective Data The patient's most recent lab work, culture data and imaging studies have all been personally reviewed. Influenza A PCR was positive on December 17. Blood cultures dated December 17 were positive for Streptococcus pneumonia. Vital Signs: Vital Signs Temp Pulse Resp BP Pulse Ox O2 Del Method O2 Flow Rate 98.2 F 90 24 H 138/78 H 92 High Flow 4 12/25/24 09:50 12/25/24 09:55 12/25/24 09:50 12/25/24 09:55 12/25/24 09:50 12/25/24 09:50 12/25/24 09:50 FiO2 60 12/21/24 12:50 Oxygen Flow Rate (L/min) 4 Oxygen Delivery Method High Flow Weight: 192 lb 10.944 oz Body Mass Index (BMI) 25.0 Intake & Output: Intake and Output for Last 24 Hours 12/23/24 12/24/24 12/25/24 23:59 23:59 23:59 Intake Total 2800 / 2800 600 / 600 360 / 360 Output Total 750 / 750 850 / 850 400 / 400 Balance 2049 -250 / -250 -40 / -40 Lab / Micro Data Attestation: I reviewed the patient's lab results. 12/25/24 06:13 12/25/24 06:13 Labs: Laboratory Results - last 24 hr 12/25/24 06:13: WBC 8.9, RBC 3.40 L, Hgb 10.1 L, Hct 30.8 L, MCV 90.6, MCH 29.7, MCHC 32.8, RDW Std Deviation 49.4 H, RDW Coeff of Whit 14.8 H, Plt Count 274, MPV 9.9, Immature Gran % (Auto) 3.000 H, Neut % (Auto) 77.2 H, Lymph % (Auto) 15.3 L, [place] % (Auto) 4.1, Eos % (Auto) 0.1, Baso % (Auto) 0.3, Absolute Neuts (auto) 6.9, Absolute Lymphs (auto) 1.36, Nucleated RBC % 0, Sodium 142, Potassium 3.9, Chloride 111 H, Carbon Dioxide 25.0, Anion Gap 7, BUN 31 H, Creatinine 1.40 H, Estim Creat Clear Calc 57.07, Est GFR (MDRD) Af Amer 65, Est GFR (MDRD) Non-Af 54 L, BUN/Creatinine Ratio 22.1 H, Glucose 85, Calcium 8.9, TSH 72.300 H Micro: Microbiology 12/18/24 16:40 Sputum, Expectorated/Coughed Gram Stain - Final 12/18/24 16:40 Sputum, Expectorated/Coughed Respiratory Culture - Final Mixed normal respiratory ayah. No Streptococcus pneumoniae, beta-hemolytic Streptococcus or Staphylococcus aureus isolated. 12/17/24 15:35 Blood Culture (Wb) - Anticubital Right Bacteria Detection (PCR) - Final Streptococcus pneumoniae 12/17/24 15:35 Blood Culture (Wb) - Anticubital Right Blood Culture - Final Streptococcus pneumoniae 12/17/24 15:35 Blood Culture (Wb) - Left Forearm Blood Culture - Final Alpha Hemolytic Streptococcus 12/17/24 14:49 Urine, Clean Catch Legionella Antigen - Final 12/17/24 14:49 Urine, Clean Catch Streptococcus pneumoniae Antigen (M - Final 12/17/24 14:10 Mucosa - Nose SARS-CoV-2, Influenza & RSV (PCR) - Final Influenzae A Radiography Diagnostic Testing: Radiology Impression Chest X-Ray 12/24/24 09:53 IMPRESSION: As above.. Reading Location: [facility] Physical Exam Const alert and no apparent distress Constitutional Narrative: Sitting in bedside recliner. General Appearance: cooperative HEENT normocephalic, head/scalp atraumatic and moist oral mucous membranes Eyes PERRL, EOMs intact bilaterally and conjunctivae normal Neck supple General: trachea midline Chest inspection of chest normal Resp normal respiratory effort Auscultation: diminished lung sounds; Negative for rales, rhonchi or wheezes Cardio regular rate and regular rhythm GI normal to inspection, nondistended, normoactive bowel sounds Extremity no clubbing, cyanosis or edema Skin no rashes or lesions noted Neuro CN's II-XII intact bilaterally, moves all extremities and no focal motor deficits Psych cooperative and affect normal Charges/Coding Visit Charges Inpatient E&M: 55464 Subs Hosp L2
[2024-12-25 13:27] LABS: Pathologist Review Reviewed
[2024-12-25 13:28] LABS: Pathologist Review Reviewed
[2024-12-25 14:59] LABS: Pathologist Review Reviewed
--- NOTE | 2024-12-25 20:19 | PCM.PN.HOSP ---
Reason for Visit Reason for Visit: Diagnoses Influenza due to other identified influenza virus with other respiratory manifestations (12/17/24) Acute respiratory failure with hypoxia (12/17/24) Acute kidney failure, unspecified (12/17/24) Hypoxemia (12/17/24) Subjective Subjective Patient was seen and examined today, he appeared to be confused but answers some questions appropriately. Patient thought he had COVID, I explained to him that he had influenza A. I also explained to the patient that he could not be discharged due to his high oxygen requirement at this time. Nursing confirmed that the patient has been confused intermittently today. Objective Data Objective Data Vital Signs: Vital Signs Temp Pulse Resp BP Pulse Ox O2 Del Method O2 Flow Rate 98.4 F 81 18 162/78 H 92 High Flow 8 12/25/24 15:50 12/25/24 15:50 12/25/24 15:50 12/25/24 15:50 12/25/24 16:06 12/25/24 15:50 12/25/24 16:06 FiO2 60 12/21/24 12:50 Oxygen Flow Rate (L/min) 8 Oxygen Delivery Method High Flow Weight: 87.4 kg Body Mass Index (BMI) 25.0 Intake & Output: Intake and Output for Last 24 Hours 12/23/24 12/24/24 12/25/24 23:59 23:59 23:59 Intake Total 2800 / 2800 600 / 600 600 / 600 Output Total 750 / 750 850 / 850 400 / 400 Balance 2049 / 2049 -250 / -250 200 / 200 Lab / Micro Data 12/25/24 06:13 12/25/24 06:13 Labs: Laboratory Results - last 24 hr 12/23/24 05:29: Diff Path Review Reviewed 12/24/24 07:09: Diff Path Review Reviewed 12/25/24 06:13: WBC 8.9, RBC 3.40 L, Hgb 10.1 L, Hct 30.8 L, MCV 90.6, MCH 29.7, MCHC 32.8, RDW Std Deviation 49.4 H, RDW Coeff of Whit 14.8 H, Plt Count 274, MPV 9.9, Immature Gran % (Auto) 3.000 H, Neut % (Auto) 77.2 H, Lymph % (Auto) 15.3 L, Lane % (Auto) 4.1, Eos % (Auto) 0.1, Baso % (Auto) 0.3, Absolute Neuts (auto) 6.9, Absolute Lymphs (auto) 1.36, Nucleated RBC % 0, Sodium 142, Potassium 3.9, Chloride 111 H, Carbon Dioxide 25.0, Anion Gap 7, BUN 31 H, Creatinine 1.40 H, Estim Creat Clear Calc 57.07, Est GFR (MDRD) Af Amer 65, Est GFR (MDRD) Non-Af 54 L, BUN/Creatinine Ratio 22.1 H, Glucose 85, Calcium 8.9, TSH 72.300 H Micro: Microbiology 12/18/24 16:40 Sputum, Expectorated/Coughed Gram Stain - Final 12/18/24 16:40 Sputum, Expectorated/Coughed Respiratory Culture - Final Mixed normal respiratory ayah. No Streptococcus pneumoniae, beta-hemolytic Streptococcus or Staphylococcus aureus isolated. 12/17/24 15:35 Blood Culture (Wb) - Anticubital Right Bacteria Detection (PCR) - Final Streptococcus pneumoniae 12/17/24 15:35 Blood Culture (Wb) - Anticubital Right Blood Culture - Final Streptococcus pneumoniae 12/17/24 15:35 Blood Culture (Wb) - Left Forearm Blood Culture - Final Alpha Hemolytic Streptococcus 12/17/24 14:49 Urine, Clean Catch Legionella Antigen - Final 12/17/24 14:49 Urine, Clean Catch Streptococcus pneumoniae Antigen (M - Final 12/17/24 14:10 Mucosa - Nose SARS-CoV-2, Influenza & RSV (PCR) - Final Influenzae A Physical Exam Const alert and no apparent distress General Appearance: cooperative, well kempt and well developed Orientation / Consciousness: awake, oriented to person and confused HEENT normocephalic, head/scalp atraumatic and moist oral mucous membranes Eyes PERRL, EOMs intact bilaterally and conjunctivae normal Neck supple, no JVD, thyroid normal and no carotid bruits General: trachea midline Resp normal respiratory effort, no retractions, no use of accessory muscles and clear to auscultation bilaterally Auscultation: Negative for rales, rhonchi or wheezes Cardio regular rate, regular rhythm, S1 normal heart sound, S2 normal heart sound, no murmurs, no rub and no gallops GI normal to inspection, nondistended, normoactive bowel sounds, soft to palpation, non-tender and non-distended Extremity no clubbing, cyanosis or edema Skin no rashes or lesions noted General Skin Exam: no breakdown Neuro CN's II-XII intact bilaterally, moves all extremities, no focal motor deficits and no sensory deficits noted Neuro Narrative: Patient exhibits mild confusion Sensorium / Orientation: awake, alert and oriented to person Speech: speech normal Psych Psych Narrative: Patient exhibits mild confusion Assessment & Plan Assessment/Plan (1) Acute hypoxemic respiratory failure: PLAN: Plan 1. Acute hypoxic respiratory failure-secondary to pneumococcal pneumonia and acute influenza A infection-continue present antibiotics, pulmonary medicine is participating in his care, patient has completed a course of Tamiflu #2 acute kidney injury-patient's creatinine remained stable at this time, no baseline creatinine was available for comparison. #3 metabolic encephalopathy-patient has some level of confusion today, he seemed that he did not realize he was at [facility], continue to provide supportive care #4 hypothyroidism-patient is on Synthroid Total clinical time spent by myself addressing the patient's medical issues, reviewing all of his data, and collaborating with patient's care team: 35 minutes Charges/Coding Visit Charges Inpatient E&M: 02012 Subs Hosp L2
--- NOTE | 2024-12-25 21:43 | NURSING ---
spoke with patients Joanne. had called in asking nurse to check on patient because his text to her was kind of weird in patients opinion. This nurse had checked on patient and he was alert and oriented but per patient has been starting to get a little confused at night, these past couple of nights. This nurse explained to that sometimes when patients have extended stays they can start to get confused. understood, also asked why patient was not able to come home today and after reading Doctors note and seeing patients walking pulse oxygenation requirements, pt required 8L O2 to walk. This nurse explained to that the doctors usually like patients to be under 6L NC when up walking. understood and thanked this nurse.
[2024-12-26 03:20] VITALS: BP 144/67; PULSE 75; RESP 18; TEMP 36.1; O2SAT 93
[2024-12-26] MEDS: levoFLOXacin 750 MG Tablet PO (06:42)
[2024-12-26] MEDS: Levothyroxine 137 MCG Tablet PO (06:42)
[2024-12-26 07:45] VITALS: O2SAT 93
[2024-12-26 09:26] VITALS: BP 142/79; PULSE 87; RESP 18; TEMP 36.2; O2SAT 93
[2024-12-26 09:37] VITALS: PULSE 87
[2024-12-26] MEDS: Na Biphos/Potassium Phosphate PACKET 1 PACKET PO (09:37)
[2024-12-26] MEDS: APIXABAN 5 MG TABLET PO (09:37)
[2024-12-26] MEDS: Metoprolol Tartrate 25 MG Tablet PO (09:37)
[2024-12-26] MEDS: Potassium Chloride Oral Tablet 20 MEQ PO (09:38)
[2024-12-26 10:32] VITALS: O2SAT 86; O2SAT 87; O2SAT 88; O2SAT 90; O2SAT 92
[2024-12-26 14:50] VITALS: BP 141/84; PULSE 80; RESP 18; TEMP 36.2; O2SAT 95
--- NOTE | 2024-12-26 14:58 | PCM.HOSP.N ---
Hospitalist Note Oxygen testing reviewed, patient is ambulatory in the home and community and requires home oxygen with portability
--- NOTE | 2024-12-26 15:19 | PCM.DC ---
Discharge Instructions Diet Discharge Diet: No restrictions DC O2, CPAP, BIPAP needs RN Home O2 Qualification: Home O2 Qualification: Is the patient on home oxygen No 12/26/24 10:32 Home O2 Qualification: AT REST 1- Pulse Ox at rest 86 12/26/24 10:32 2- Pulse Ox at rest 87 12/26/24 10:32 2- Oxygen Flow Rate at rest 2 12/26/24 10:32 3- Pulse Ox at rest 90 12/26/24 10:32 3- Oxygen Flow Rate at rest 3 12/26/24 10:32 Home O2 Qualification: WITH AMBULATION 1- Pulse Ox with ambulation 88 12/26/24 10:32 1- Oxygen Flow Rate with 4 12/26/24 10:32 ambulation 2- Pulse Ox with ambulation 92 12/26/24 10:32 2- Oxygen Flow Rate with 6 12/26/24 10:32 ambulation Home O2 Discharge instructions: Yes Type of respiratory needs?: Oxygen Oxygen frequency: Continuous Continuous oxygen liters per minute: 3 L and With Ambulation Oxygen liters per minute during Ambulation: 6 L Dressing / Incision Discharge Activity: Return to Normal Activity Weight Bearing Status: Full weight bearing Follow Up Care Test Results: Test results from this visit will be discussed in further detail at your follow-up appointment, if applicable. Discharge Plan Admission Admit Date/Time: 12/17/24 15:23 Primary Reason for Your Visit: Respiratory failure, influenza A, pneumonia Attending Provider: Anup Whipple Primary Care Provider: Care Physician,No Primary Consulting Providers: Eulalio Davis; Nakul Tellez; Jw Montiel; Nadia Adams; Hallie Watkins; Genoveva,Anette; Jose,Vitaliy; Katarzyna Gordon; Javier Ruggiero; Marcus Shane; Hayes Chairez; Diane Conner; [place]il [place]; Malgorzata Liu; Aj Angela; Camryn Self; Jean Carlos Shelley; Ace Zapata; Kevon Barcenas; Khushboo Washington; Lauren Rene; Carlos Ulloa; Saleem Ashley; Giacomo Jin; Randall Isbell; Chavo Carrizales; Aldair Watson; Kaleb Roque; Nora Garnett; Ramone Lopez; Phani Upton; Bryant Young; Usha Medrano; Huyen Saunders; Pauline Rose; Roderick Coy; Duncan Coreas; Wagner Valderrama; Bernardino Owens; Johan Holbrook; Gera Mcclelland; David Browning; Jacob Cruz; Blane Copeland; Chavo Butler Instructions Additional Instructions / Restrictions: Use oxygen at 3 L at rest, 6 L when ambulating or during activity Discharge Orders/Prescriptions Prescriptions: New levothyroxine 137 mcg Tablet 137 mcg PO DAILY@0600 Qty: 30 0RF metoprolol tartrate 25 mg Tablet 25 mg PO BID Qty: 60 0RF Eliquis 5 mg Tablet 5 mg PO BID Qty: 60 0RF albuterol sulfate 90 mcg/actuation HFA aerosol inhaler 2 puff inhalation .QID Qty: 6.7 0RF amlodipine 5 mg tablet 5 mg PO DAILY Qty: 30 0RF Discontinued losartan 25 mg tablet 25 mg PO DAILY Referrals / Follow Up: Randall Isbell DO [Med Staff - Active Staff] - See Referral Note (In 2 weeks, please call office to schedule appointment, notify them that he was seen by Dr. Isbell in the hospital) Care Physician,No Primary [Primary Care Provider] - NOT,DEFINED [Non-Staff] - Val Garces, APPRENTICE PHOTOGRAPHER-C [[facility]] - Within 1 Month (Call to establish primary care physician) Disposition Disposition (needs filled in before D/C Order can be placed): Home, Self Care
--- NOTE | 2024-12-26 15:20 | CASEMGMT ---
Addendum entered by Jerri Mauricio 12/26/24 15:49: Patient is discharging on Eliquis, RN CM called [facility], copay is $590.87. RN CM provided patient with 30 day free trial card. RN CM provided PCP list as well. Original Note: Patient has order for discharge. Patient qualifies for home oxygen at discharge, script received. ELROY CM in to discuss needs at discharge with patient, at bedside. Patient and prefer [facility] for home oxygen. Patient and decline HHC or outpatient therapy. states patient has walker and pulse ox at home. Patient and deny further needs or concerns at discharge. RN TANYA sent script for oxygen to [facility] via [employer] and arranged for tank to be delivered to room.
--- NOTE | 2024-12-26 15:33 | PCM.DC.SUM ---
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 Acute hypoxic respiratory failure-secondary to pneumococcal pneumonia and acute influenza A infection-continue present antibiotics, pulmonary medicine is participating in his care, patient has completed a course of Tamiflu #2 acute kidney injury-patient's creatinine remained stable at this time, no baseline creatinine was available for comparison. #3 metabolic encephalopathy-patient has some level of confusion today, he seemed that he did not realize he was at [facility], continue to provide supportive care #4 hypothyroidism-patient is on Synthroid Total clinical time spent by myself addressing the patient's medical issues, reviewing all of his data, and collaborating with patient's care team: 35 minutes Medications at Discharge Home Medications albuterol sulfate 90 mcg/actuation aerosol inhaler 2 puff inhalation .QID shortness of breath or wheezing #6.7 grams 12/26/24 amlodipine 5 mg tablet 5 mg PO DAILY #30 tabs 12/26/24 apixaban 5 mg tablet (Eliquis) 5 mg PO BID #60 tabs 12/26/24 levothyroxine 137 mcg tablet 137 mcg PO DAILY@0600 #30 tabs 12/26/24 metoprolol tartrate 25 mg tablet 25 mg PO BID #60 tabs 12/26/24 Hospital Course Operations None Procedures 2-D Echocardiogram Summary of Care Provided Minutes Spent on Discharge: 32 Hospital Course: This 69-year-old white male was seen in the emergency room at [facility] with complaints of flulike symptoms with general malaise, cough, sore throat, generalized weakness and decreased p.o. intake. Workup in the emergency room included a chest x-ray, it was concerning for pneumonia, Levaquin was ordered for the patient, potassium was low at 3.3, creatinine was elevated at 3.94, white blood cell count was slightly low at 4 and hemoglobin was low at 11.9. Patient required oxygen at 4 L after her pulse ox was noted to be 83% on room air. Patient's influenza A test was positive. Patient was admitted to PCU for pneumonia and influenza A, he was treated with IV antibiotics and Tamiflu, patient's blood culture grew out Streptococcus pneumoniae. Patient was seen in consultation by pulmonary medicine, over the next few days the patient's oxygenation improved. On 12/26/2024, patient was seen and examined: On examination he appeared in good health and spirits. Vital signs as documented. Skin warm and dry and without overt rashes. Neck without JVD, neck was supple, trachea midline, thyroid was normal. Lungs clear bilaterally, normal air movement was noted. Heart exam notable for regular rhythm, normal sounds and absence of murmurs, rubs or gallops. Abdomen unremarkable and without evidence of organomegaly, masses, or abdominal aortic enlargement. Bowel sounds are present, abdomen is not distended. Extremities nonedematous, no cyanosis was noted, no clubbing was noted. Neuro: Cranial nerves II through XII are grossly intact, no focal motor deficits were noted, sensation to light touch and pinprick intact, motor exam 5/5 throughout. Psych: Patient is alert and oriented x3, he does not appear anxious or depressed, he does not appear agitated. On 12/26/2024, patient was felt to be stable for discharge home, at the time of discharge, patient needed 6 L of oxygen with ambulation and 3 L at rest, this was provided for him at home. Weight / BMI Weight Weight: 87.4 kg Body Mass Index (BMI) 25.0 ABG / Lab / Microbiology Data 12/25/24 06:13 12/25/24 06:13 Laboratory: Laboratory Results - last 24 hr 12/22/24 05:56: Diff Path Review Reviewed Microbiology: Microbiology 12/18/24 16:40 Sputum, Expectorated/Coughed Gram Stain - Final 12/18/24 16:40 Sputum, Expectorated/Coughed Respiratory Culture - Final Mixed normal respiratory ayah. No Streptococcus pneumoniae, beta-hemolytic Streptococcus or Staphylococcus aureus isolated. 12/17/24 15:35 Blood Culture (Wb) - Anticubital Right Bacteria Detection (PCR) - Final Streptococcus pneumoniae 12/17/24 15:35 Blood Culture (Wb) - Anticubital Right Blood Culture - Final Streptococcus pneumoniae 12/17/24 15:35 Blood Culture (Wb) - Left Forearm Blood Culture - Final Alpha Hemolytic Streptococcus 12/17/24 14:49 Urine, Clean Catch Legionella Antigen - Final 12/17/24 14:49 Urine, Clean Catch Streptococcus pneumoniae Antigen (M - Final 12/17/24 14:10 Mucosa - Nose SARS-CoV-2, Influenza & RSV (PCR) - Final Influenzae A D/C Instructions Discharge Diet: No restrictions Weight Bearing Status: Full weight bearing DC O2, CPAP, BIPAP Needs RN Home O2 Qualification: Home O2 Qualification: Is the patient on home oxygen No 12/26/24 10:32 Home O2 Qualification: AT REST 1- Pulse Ox at rest 86 12/26/24 10:32 2- Pulse Ox at rest 87 12/26/24 10:32 2- Oxygen Flow Rate at rest 2 12/26/24 10:32 3- Pulse Ox at rest 90 12/26/24 10:32 3- Oxygen Flow Rate at rest 3 12/26/24 10:32 Home O2 Qualification: WITH AMBULATION 1- Pulse Ox with ambulation 88 12/26/24 10:32 1- Oxygen Flow Rate with 4 12/26/24 10:32 ambulation 2- Pulse Ox with ambulation 92 12/26/24 10:32 2- Oxygen Flow Rate with 6 12/26/24 10:32 ambulation PSN CPAP & BiPAP: BiPAP & CPAP Settings per PSN Mode AIRVO 12/21/24 12:50 Bipap Delivery Device Face Mask 12/21/24 02:41 BiPAP Inspiratory Pressure 15 12/21/24 02:41 BiPAP Expiratory Pressure 10 12/21/24 02:41 BiPAP Rate 12 12/21/24 02:41 Fraction of Inspired Oxygen ( 60 12/21/24 12:50 FIO2) Total Flow Rate 45 12/21/24 12:50 Home O2 Discharge instructions: Yes Type of respiratory needs?: Oxygen Oxygen frequency: Continuous Continuous oxygen liters per minute: 3 L and With Ambulation Oxygen liters per minute during Ambulation: 6 L DC home with Oxygen: Yes Home O2 MD Review: I have reviewed the oxygen testing, and the patient qualifies for home oxygen equipment and portability. The patient is mobile in the home and the community. Meaningful Use Info Meaningful Use Meaningful Use Diagnoses (Choose all that apply): None applicable Ischemic Stroke Statin Dosing Therapy Reference: STATIN DOSE THERAPY REFERENCE: * Patients > 75 years receive moderate or high dose statin therapy. * Patients 75 years or YOUNGER should receive HIGH intensity statin dose unless contraindicated. You will be required to document reason for non-treatment if statin daily dose does not meet guidelines. HIGH DOSE STATIN THERAPY DAILY Atorvastatin > than or = to 40 mg Rosuvastatin > than or = to 20 mg Amlodipine + Atorvastatin > than or = to 2.5/40 mg Ezetimibe + Simvastatin 10/80 mg Simvastatin 80mg Discharge Plan Admission Admit Date/Time: 12/17/24 15:23 Primary Reason for Your Visit: Respiratory failure, influenza A, pneumonia Attending Provider: Anup Whipple Primary Care Provider: Care Physician,No Primary Consulting Providers: Eulalio Davis; Nakul Tellez; Jw Montiel; Nadia Adams; Hallie Watkins; Anette Tomas; Vitaliy Garcia; Katarzyna Gordon; Javier Ruggiero; Marcus Shane; Hayes Chairez; Diane Conner; [place]; Malgorzata Liu; Aj Angela; Camryn Self; Jean Carlos Shelley; Ace Zapata; Kevon Barcenas; Khushboo Washington; Lauren Rene; Carlos Ulloa; Saleem Ashley; Giacomo Jin; Randall Isbell; Chavo Carrizales; Aldair Watson; Kaleb Roque; Nora Garnett; Ramone Lopez; Phani Upton; Bryant Young; Usha Medrano; Huyen Saunders; Rose,Pauline; Anneliese,Roderick; Duncan Coreas; Wagner Valderrama; Bernardino Owens; Johan Holbrook; Gera Mcclelland; David Browning; Jacob Cruz; Blane Copeland; Chavo Butler Instructions Additional Instructions / Restrictions: Use oxygen at 3 L at rest, 6 L when ambulating or during activity Discharge Orders/Prescriptions Prescriptions: New levothyroxine 137 mcg Tablet 137 mcg PO DAILY@0600 Qty: 30 0RF metoprolol tartrate 25 mg Tablet 25 mg PO BID Qty: 60 0RF Eliquis 5 mg Tablet 5 mg PO BID Qty: 60 0RF albuterol sulfate 90 mcg/actuation HFA aerosol inhaler 2 puff inhalation .QID Qty: 6.7 0RF amlodipine 5 mg tablet 5 mg PO DAILY Qty: 30 0RF Discontinued losartan 25 mg tablet 25 mg PO DAILY Referrals / Follow Up: Randall Isbell DO [Med Staff - Active Staff] - See Referral Note (In 2 weeks, please call office to schedule appointment, notify them that he was seen by Dr. Isbell in the hospital) Care Physician,No Primary [Primary Care Provider] - NOT,DEFINED [Non-Staff] - Val Garcse, MANAGER [employer]ING[employer] [[facility]] - Within 1 Month (Call to establish primary care physician) Disposition Disposition (needs filled in before D/C Order can be placed): Home, Self Care Charges/Coding Visit Charges Inpatient E&M: 12531 Disch Hosp >30min
== END 2024-12-26 16:35 | disposition home or self-care (01) | DRG 871 ==
LOC: ED 15:27 → PCU 15:52
PROVIDERS: Family Medicine; Internal Medicine; Internal Medicine Critical Care Medicine; Admitting Provider Hospitalist; Emergency Provider Surgery; Referring Provider Surgery; Visit Provider Internal Medicine
DX: A40.3 Sepsis due to Streptococcus pneumoniae (principal); J96.01 Acute respiratory failure with hypoxia; G93.41 Metabolic encephalopathy; J13 Pneumonia due to Streptococcus pneumoniae; J10.08 Influenza due to other identified influenza virus with other specified pneumonia; I31.39 Other pericardial effusion (noninflammatory); D61.818 Other pancytopenia; J90 Pleural effusion, not elsewhere classified; N17.9 Acute kidney failure, unspecified; E87.1 Hypo-osmolality and hyponatremia; N30.00 Acute cystitis without hematuria; D63.8 Anemia in other chronic diseases classified elsewhere; E86.0 Dehydration; F03.90 Unspecified dementia, unspecified severity, without behavioral disturbance, psychotic disturbance, mood disturbance, and anxiety; I34.1 Nonrheumatic mitral (valve) prolapse; I10 Essential (primary) hypertension; E03.9 Hypothyroidism, unspecified; I48.0 Paroxysmal atrial fibrillation; J10.1 Influenza due to other identified influenza virus with other respiratory manifestations; E87.6 Hypokalemia; I34.0 Nonrheumatic mitral (valve) insufficiency; F17.210 Nicotine dependence, cigarettes, uncomplicated; H91.90 Unspecified hearing loss, unspecified ear; Z66 Do not resuscitate; Z79.01 Long term (current) use of anticoagulants; Z79.890 Hormone replacement therapy; Z79.899 Other long term (current) drug therapy; Z88.0 Allergy status to penicillin
CPT/HCPCS: 36415; 36600; 51702; 70450; 71045; 71046; 71250; 76770; 78582; 80048; 80053; 80076; 80202; 81001; 82140; 82570; 82607; 82728; 82746; 82803; 83540; 83550; 83605; 83735; 83880; 84100; 84145; 84156; 84300; 84439; 84443; 85025; 85027; 85379; 85610; 85730; 87040; 87070; 87149; 87186; 87205; 87449; 87631; 93005; 93306; 93970; 94002; 94660; 94668; 94762; 97116; 97162; 97166; 97530; 97535; 99285; 99406; A9540; A9567; A4216; J1940; J2405

== ENCOUNTER 2025-01-01 17:52 | Emergency (ER) | payer MEDICARE, OTHER, SELFPAY ==
[2025-01-01 17:54] VITALS: BP 145/82; PULSE 71; RESP 16; TEMP 37.6; O2SAT 93
[2025-01-01 19:32] VITALS: BP 140/79; PULSE 102; RESP 18; TEMP 38.1; O2SAT 95
[2025-01-01 19:45] LABS: Absolute Neutrophil Count 6.5 X10^3/uL (2.0-7.7); Basophil# 0.04 X10^3/uL; Basophil% 0.4 % (0-1); Eosinophil# 0.01 X10^3/uL; Eosinophils% 0.1 % (0-5); Hematocrit 32.1 % (40-54); Hemoglobin 10.3 g/dL (13.0-16.5); Lymphocyte % 23.7 % (19-41); Mean Corp Hgb Conc 32.1 g/dL (32-36); Mean Corpuscular Hgb 29.1 pg (27.0-32.0); Mean Corpuscular Volume 90.7 fL (80-94); Mean Platelet Vol. 9.7 fl (6.2-12.0); Monocyte# 1.15 X10^3/uL; Monocyte% 11.3 % (0-10); NRBC Flagged by Analyzer 0 % (0-5); Neutrophil # 6.49 X10^3/uL (2.7-7.7); Platelet Count 296 K/mm3 (150-450); RBC Distribution Width CV 13.8 % (11.6-14.6); RBC Distribution Width SD 46.3 fl (35.1-43.9); Red Blood Count 3.54 M/mm3 (4.6-6.2); White Blood Count 10.1 K/mm3 (4.4-11.0)
--- NOTE | 2025-01-01 19:50 | RAD_ITS ---
PROCEDURE: PA and lateral chest radiographs, two views REASON FOR EXAM: Shortness of breath, cough TECHNIQUE: PA and lateral chest radiographs were obtained. COMPARISON: 12/24/2024 FINDINGS: Similar prominence of the cardiomediastinal silhouette. The osseous structures appear intact with mild degenerative changes in the spine. Slightly increased patchy opacity at the left lung base. No sizable left pleural effusion. Probable small right pleural effusion. There is similar dense areas of opacity projecting over the mid and lower portions of the right lung. On the lateral projection, an air-fluid level projects over the central lower thorax. RAD/Chest PA and Lateral IMPRESSION: Findings suspicious for similar multifocal pneumonia, slightly progressed at th e left lung base. There is a probable small right pleural effusion. An air-fluid level projects over the lower central thorax on the lateral view, not definitely confirmed on the PA projection. There is no significant hiatal hernia demonstrated on the recent chest CT of . The presence of the air-fluid level could represent developing lung parenchymal necrosis or intraparenchymal absces s. CT evaluation is suggested. Reading Location: [facility]
[2025-01-01 20:22] LABS: Anion Gap 4 (5-15); BUN 22 mg/dL (7-18); Calcium,Total 8.8 mg/dL (8.5-10.1); Chloride 105 mmol/L (98-107); Creatinine, Serum 1.16 mg/dL (0.70-1.30); EST Glomerular Filtration Rate 67 mL/min (>60); Est Glom Filt Rate - Afr Amer 81 mL/min (>60); Glucose 98 mg/dL (74-106); Potassium 3.9 mmol/L (3.5-5.1); Sodium Level 137 mmol/L (136-145)
--- NOTE | 2025-01-01 20:26 | EX.ED.DYSGE1 ---
HPI History of Present Illness Chief Complaint: Shortness of Breath Informant: patient and spouse/S.O. Narrative Narrative: Patient is a 69-year-old male with history of tobacco use and recent admission for hypoxia, atrial fibrillation, hypothyroidism and influenza A and pneumococcal pneumonia. He was discharged home 6 days ago on 12/26/2024. He was discharged on home oxygen with 3 L at rest and 6 L with exertion. He was started on Eliquis for his atrial fibrillation as well as metoprolol. He was also treated with levothyroxine. Hospital course was complicated with was thought to be delirium. It appears that he completed his antibiotics was not discharged home with any antibiotics. states that he is continue to have some delirium and weakness that has been continued but overall is improving. For the last 2 days he did complain of headaches and myalgias. He had Tylenol yesterday morning for his body aches. This did not seem to improve but he woke up again this morning with a headache. Today his notes that he was breathing faster and more shallow than normal. She was given a pamphlet on the signs of sepsis and thought that he was hitting a lot of them so she brought him back to the emergency room for further evaluation. Patient currently denies any complaints at this time besides a headache. He did have a fever here but did not realize that prior to coming in. Denies any urinary symptoms. Has been having regular bowel movements. Did have a Hunter catheter in the hospital. [facility] Medical History Acute hypoxemic respiratory failure JOSÉ MANUEL (acute kidney injury) Hypoxia Influenza A Hypertension Home Medications ?Medication ?Instructions ?Recorded ?Last Taken ?Type amlodipine 5 mg tablet 5 mg PO DAILY #30 tabs 12/26/24 01/01/25 Rx apixaban 5 mg tablet (Eliquis) 5 mg PO BID #60 tabs 12/26/24 01/01/25 Rx levothyroxine 137 mcg tablet 137 mcg PO DAILY@0600 #30 tabs 12/26/24 01/01/25 Rx metoprolol tartrate 25 mg tablet 25 mg PO BID #60 tabs 12/26/24 01/01/25 Rx albuterol sulfate 90 mcg/actuation 2 puff inhalation 4X/DAY PRN 01/01/25 Unknown History aerosol inhaler shortness of breath or wheezing cefdinir 300 mg capsule 300 mg PO Q12H #20 caps 01/01/25 Unknown Rx vitamins A,C,B-rzxo-woqjwk 2,148 1 tab PO DAILY 01/01/25 01/01/25 History mcg-113 mg-45 mg-17.4 mg tablet (Eye Multivitamin) Allergy/AdvReac Type Severity Reaction Status Date / Time Penicillins Allergy Unknown Verified 12/17/24 12:58 Bfpohqs-TQH-TrV Reductase Allergy Other Verified 12/17/24 12:58 Inhibitor (Pepuaff-Pjx-Pqk Reductase Inhibitor) Social History Smoking Status: Current every day smoker tobacco type: cigarettes ROS ROS ED Constitutional Constitutional ED: Reports chills and fever(s) Eyes Eyes: Denies change in vision ENT ENT ED: Denies rhinorrhea or sore throat Cardiovascular Cardiovascular: Denies chest pain Respiratory/Chest Respiratory/Chest: Reports cough, dyspnea and dyspnea on exertion Gastrointestinal Gastrointestinal: Denies abdominal pain, diarrhea, nausea or vomiting Musculoskeletal Musculoskeletal: Reports arthralgias and myalgias Integumentary Denies rash Neurologic Neurologic: Reports headache(s) and weakness; Denies paresthesias Hematologic/Lymphatic Hematologic/Lymphatic: Reports easy bleeding EXAM Physical Exam Const Vital Signs: 01/01/25 17:54 01/01/25 19:30 01/01/25 19:32 Temperature 99.6 F H 100.5 F H Temperature Source Oral Oral Pulse Rate 71 102 H Respiratory Rate 16 18 Blood Pressure 145/82 H 140/79 H Blood Pressure Mean 103 99 Pulse Ox 93 95 Oxygen Delivery Method Nasal Cannula Nasal Cannula Nasal Cannula Oxygen Flow Rate (L/min) 3 3 3 01/01/25 21:00 01/01/25 22:00 01/01/25 23:00 Temperature 97.5 F L 97.9 F 98.1 F Temperature Source Oral Temporal Temporal Pulse Rate 95 88 87 Respiratory Rate 19 H 23 H 23 H Blood Pressure 109/68 140/71 H 109/68 Blood Pressure Mean 81 94 81 Pulse Ox 95 96 96 Oxygen Delivery Method Room Air Nasal Cannula Oxygen Flow Rate (L/min) 3 Positive well nourished and well developed General Appearance ED: well developed and NAD HEENT Reports moist mucous membranes Eyes PERRL and EOMs intact bilaterally General Eye ED: Negative for pale conjunctiva Neck supple and no JVD Chest Wall inspection of chest normal Resp Resp Narrative: Coarse breath sounds throughout. Diminished breath sounds at the right base. Mild tachypnea. Auscultation: diminished lung sounds right lower; Negative for wheezes Cardio regular rate and no murmurs Rate: tachycardic GI normal to inspection, nondistended, normoactive bowel sounds and non-tender Auscultation: normoactive bowel sounds Palpation: soft Extremity normal to inspection General Extremety ED: Negative for edema or tenderness General Extremity: Negative for edema Neuro Sensorium / Orientation: alert and orientation impaired Motor Exam: Negative for general weakness Psych mental status grossly normal Skin no rashes or lesions noted and no wounds MDM MDM MDM Narrative Medical decision making narrative: Patient evaluated with new fever. He had recent hospitalization for influenza A and had blood cultures positive for Streptococcus pneumonia. He was treated with a course of Levaquin. He was discharged home on oxygen. Is not had any increased O2 demands however notes today he is seeming breathing more shallow and faster. She was concerned he could be developing sepsis and brought him to the emergency room. Patient is well-appearing. Differential includes recurrence pneumonia, new infection, urinary tract infection, sepsis, symptomatic anemia. Sepsis workup is initiated including CBC, lactate, BMP, chest x-ray and urinalysis. CBC does not show leukocytosis with white blood cell count of 10.1. Hemoglobin 10.3 which is stable. Blood suspicion for acute anemia/symptomatic anemia. BMP normal. Creatinine at his baseline if not slightly improved. Urinalysis is not consistent with infection. Chest x-ray viewed by myself as well as radiology shows scattered suspicious for similar multifocal pneumonia slightly progressed to the left lung base. There is also probable small right pleural effusion. There is a questionable area of air-fluid levels/abscess of the lung and recommend CT. CT of the chest shows scattered bilateralconsolidations and nodule groundglass opacities, greater on the right. Concerning for multifocal pneumonia. There is small right and trace left pleural effusion. Moderate pericardial effusion. Multiple prominent mediastinal lymph nodes may be reactive. Patient is ambulated in the emergency room with no desaturation on his 6 L. Infectious workup x-ray largely normal/negative. Is not clear if this progression of pneumonia on his imaging is acutely infectious versus radiologic progression. Given recurrent fevers will restart him on antibiotics (will do cefdinir as he is previously was on Levaquin). First dose was given the emergency room. Will be discharged home. Given close return precautions. Overall patient has been improving. Patient and are agreeable this plan of care. Did discuss with the patient's that he does have a pericardial effusion noted on his CT. He is not having any symptoms consistent with symptomatic effusion today. I do not think it is infectious. Echocardiogram on 12/17/2024 shows small (less than 1 cm) pericardial effusion). encouraged the to follow-up about the pericardial effusion Lab Data Attestation: I reviewed the patient's lab results. Labs: Laboratory Results - last 24 hr 01/01/25 01/01/25 01/01/25 19:30 19:30 19:30 WBC 10.1 RBC 3.54 L Hgb 10.3 L Hct 32.1 L MCV 90.7 MCH 29.1 MCHC 32.1 RDW Std Deviation 46.3 H RDW Coeff of Whit 13.8 Plt Count 296 MPV 9.7 Immature Gran % (Auto) 0.500 Neut % (Auto) 64.0 Lymph % (Auto) 23.7 Greene % (Auto) 11.3 H Eos % (Auto) 0.1 Baso % (Auto) 0.4 Absolute Neuts (auto) 6.5 Absolute Lymphs (auto) 2.40 Nucleated RBC % 0 PT 15.7 H INR 1.2 APTT 33.1 Sodium 137 138 Potassium 3.9 3.9 Chloride 105 Carbon Dioxide Anion Gap BUN Creatinine Est GFR (MDRD) Af Amer Est GFR (MDRD) Non-Af BUN/Creatinine Ratio Glucose Lactic Acid Calcium Total Bilirubin AST ALT Alkaline Phosphatase Total Protein Albumin Globulin Albumin/Globulin Ratio Urine Color Urine Clarity Urine pH Ur Specific [place] Urine Protein Urine Glucose (UA) Urine Ketones Urine Occult Blood Urine Nitrite Urine Bilirubin Urine Urobilinogen Ur Leukocyte Esterase Urine RBC Urine WBC Ur Squamous Epith Cells Urine Bacteria Coarse Granular Casts Urine Mucus 01/01/25 01/01/25 01/01/25 19:30 19:30 19:30 WBC RBC Hgb Hct MCV MCH MCHC RDW Std Deviation RDW Coeff of Whit Plt Count MPV Immature Gran % (Auto) Neut % (Auto) Lymph % (Auto) Greene % (Auto) Eos % (Auto) Baso % (Auto) Absolute Neuts (auto) Absolute Lymphs (auto) Nucleated RBC % PT INR APTT Sodium Potassium Chloride 104 Carbon Dioxide 28.0 30.0 Anion Gap 4 L 4 L BUN 22 H Creatinine Est GFR (MDRD) Af Amer Est GFR (MDRD) Non-Af BUN/Creatinine Ratio Glucose Lactic Acid Calcium Total Bilirubin AST ALT Alkaline Phosphatase Total Protein Albumin Globulin Albumin/Globulin Ratio Urine Color Urine Clarity Urine pH Ur Specific [place] Urine Protein Urine Glucose (UA) Urine Ketones Urine Occult Blood Urine Nitrite Urine Bilirubin Urine Urobilinogen Ur Leukocyte Esterase Urine RBC Urine WBC Ur Squamous Epith Cells Urine Bacteria Coarse Granular Casts Urine Mucus 01/01/25 01/01/25 01/01/25 19:30 19:30 19:30 WBC RBC Hgb Hct MCV MCH MCHC RDW Std Deviation RDW Coeff of Whit Plt Count MPV Immature Gran % (Auto) Neut % (Auto) Lymph % (Auto) Greene % (Auto) Eos % (Auto) Baso % (Auto) Absolute Neuts (auto) Absolute Lymphs (auto) Nucleated RBC % PT INR APTT Sodium Potassium Chloride Carbon Dioxide Anion Gap BUN 23 H Creatinine 1.16 1.22 Est GFR (MDRD) Af Amer 81 76 Est GFR (MDRD) Non-Af 67 BUN/Creatinine Ratio Glucose Lactic Acid Calcium Total Bilirubin AST ALT Alkaline Phosphatase Total Protein Albumin Globulin Albumin/Globulin Ratio Urine Color Urine Clarity Urine pH Ur Specific [place] Urine Protein Urine Glucose (UA) Urine Ketones Urine Occult Blood Urine Nitrite Urine Bilirubin Urine Urobilinogen Ur Leukocyte Esterase Urine RBC Urine WBC Ur Squamous Epith Cells Urine Bacteria Coarse Granular Casts Urine Mucus 01/01/25 01/01/25 01/01/25 19:30 19:30 19:30 WBC RBC Hgb Hct MCV MCH MCHC RDW Std Deviation RDW Coeff of Whit Plt Count MPV Immature Gran % (Auto) Neut % (Auto) Lymph % (Auto) Greene % (Auto) Eos % (Auto) Baso % (Auto) Absolute Neuts (auto) Absolute Lymphs (auto) Nucleated RBC % PT INR APTT Sodium Potassium Chloride Carbon Dioxide Anion Gap BUN Creatinine Est GFR (MDRD) Af Amer Est GFR (MDRD) Non-Af 63 BUN/Creatinine Ratio 19.0 18.9 Glucose 98 94 Lactic Acid Calcium 8.8 Total Bilirubin AST ALT Alkaline Phosphatase Total Protein Albumin Globulin Albumin/Globulin Ratio Urine Color Urine Clarity Urine pH Ur Specific [place] Urine Protein Urine Glucose (UA) Urine Ketones Urine Occult Blood Urine Nitrite Urine Bilirubin Urine Urobilinogen Ur Leukocyte Esterase Urine RBC Urine WBC Ur Squamous Epith Cells Urine Bacteria Coarse Granular Casts Urine Mucus 01/01/25 01/01/25 01/01/25 19:30 20:00 22:20 WBC RBC Hgb Hct MCV MCH MCHC RDW Std Deviation RDW Coeff of Whit Plt Count MPV Immature Gran % (Auto) Neut % (Auto) Lymph % (Auto) Greene % (Auto) Eos % (Auto) Baso % (Auto) Absolute Neuts (auto) Absolute Lymphs (auto) Nucleated RBC % PT INR APTT Sodium Potassium Chloride Carbon Dioxide Anion Gap BUN Creatinine Est GFR (MDRD) Af Amer Est GFR (MDRD) Non-Af BUN/Creatinine Ratio Glucose Lactic Acid 0.7 Calcium 9.0 Total Bilirubin 0.40 AST 33 ALT 34 Alkaline Phosphatase 77 Total Protein 7.7 Albumin 2.3 L Globulin 5.4 H Albumin/Globulin Ratio 0.4 L Urine Color Yellow Urine Clarity Sl. Cloudy Urine pH 5.0 Ur Specific [place] 1.025 Urine Protein 30 H Urine Glucose (UA) Normal Urine Ketones Negative Urine Occult Blood 250 H Urine Nitrite Negative Urine Bilirubin Negative Urine Urobilinogen 1 H Ur Leukocyte Esterase 25 H Urine RBC 25-50 SEEN Urine WBC 5-10 SEEN Ur Squamous Epith Cells 0 SEEN Urine Bacteria 1+ Coarse Granular Casts 0-5 SEEN Urine Mucus 2+ Radiography Diagnostic Testing: Clinical Impression(s) from Imaging Studies Chest X-Ray 01/01/25 19:50 IMPRESSION: Findings suspicious for similar multifocal pneumonia, slightly progressed at the left lung base. There is a probable small right pleural effusion. An air-fluid level projects over the lower central thorax on the lateral view, not definitely confirmed on the PA projection. There is no significant hiatal hernia demonstrated on the recent chest CT of 12/18/2024. The presence of the air-fluid level could represent developing lung parenchymal necrosis or intraparenchymal abscess. CT evaluation is suggested. Reading Location: [facility] Chest CT 01/01/25 20:59 IMPRESSION: 1. Scattered bilateral airspace consolidations and nodular ground-glass opacities, greater on the right. Findings concerning for multifocal pneumonia. Imaging follow-up recommended after medical management to ensure resolution and exclude underlying malignancy. 2. Small right and trace left pleural effusions. 3. Moderate pericardial effusion. 4. Multiple prominent mediastinal lymph nodes which may be reactive. 5. Coronary artery disease. One or more dose reduction techniques were used (e.g., Automated exposure control, adjustment of the mA and/or kV according to patient size, use of iterative reconstruction technique). [facility] R[facility] Rhythm Strip: Sinus Tach Rate: 103 Ectopy: None EKG Initial EKG: Attestation: I personally reviewed and interpreted this EKG as follows: Interpretation: Sinus Tachycardia Comments: Sinus tachycardia rate 103 bpm Low voltage QRS Normal axis Normal intervals Normal ST segments Discharge Plan Triage Chief Complaint: Shortness of Breath ED Provider: Montserrat Stacy Dx/Rx/DC Orders Clinical Impression: Fever, Bilateral pneumonia Instructions: ED Pneumonia (Adult) Prescriptions: New cefdinir 300 mg capsule 300 mg PO Q12H Qty: 20 0RF No Action levothyroxine 137 mcg Tablet 137 mcg PO DAILY@0600 Qty: 30 0RF metoprolol tartrate 25 mg Tablet 25 mg PO BID Qty: 60 0RF Eliquis 5 mg Tablet 5 mg PO BID Qty: 60 0RF amlodipine 5 mg tablet 5 mg PO DAILY Qty: 30 0RF Eye Multivitamin 2,148 mcg-113 mg-45 mg-17.4mg tablet 1 tab PO DAILY Rx Instructions: TOLD PT ONLY TAKE 1 ONCE DAILY albuterol sulfate 90 mcg/actuation HFA aerosol inhaler 2 puff inhalation 4X/DAY PRN (Reason: shortness of breath or wheezing) Primary Care Provider: Blane Velasquez Referrals: Blane Velasquez MD [Primary Care Provider] - Activity Restrictions/Additional Instructions: Your lab work today was very reassuring. Your blood cultures pending. Your CT continues to show bilateral pneumonia however would not expect it to be cleared up at this point. I we will put you on antibiotics given the new fever today. Continue to encourage fluids and gentle activity. If he worsens or is short of breath on the oxygen he was sent home on, please return to the emergency room. If he continues to have fever after 48 hours please return to the emergency room. The CT did show a small amount of fluid around his heart called pericardial effusion. 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
[2025-01-01 20:32] LABS: ALB/GLOB Ratio 0.4 RATIO (0.9-2.4); AST(SGOT) 33 U/L (15-37); Alanine Aminotransfer ALT/SGPT 34 U/L (16-61); Albumin, Serum 2.3 g/dL (3.2-5.0); Alkaline Phosphatase 77 U/L (45-117); Anion Gap 4 (5-15); BUN 23 mg/dL (7-18); BUN/Creat Ratio 18.9 RATIO (10-20); Chloride 104 mmol/L (98-107); Creatinine, Serum 1.22 mg/dL (0.70-1.30); EST Glomerular Filtration Rate 63 mL/min (>60); Est Glom Filt Rate - Afr Amer 76 mL/min (>60); Globulin 5.4 g/dL (2.2-4.2); Glucose 94 mg/dL (74-106); Potassium 3.9 mmol/L (3.5-5.1); Protein, Total 7.7 g/dL (6.4-8.2); Sodium Level 138 mmol/L (136-145)
[2025-01-01] MEDS: Acetaminophen 325 MG Tablet 650 MG PO (20:34)
[2025-01-01 20:36] LABS: Lactic Acid 0.7 mmol/L (0.4-1.9)
--- NOTE | 2025-01-01 20:59 | CT_ITS ---
PROCEDURE: CT chest without IV contrast REASON FOR EXAM: Fever, pneumonia TECHNIQUE: Multiple contiguous axial images of the chest were obtained without the administration of intravenous contrast. Two-dimensional coronal and sagittal reformatted images were reconstructed. Low-dose imaging technique was utilized. COMPARISON: Same day chest FINDINGS: Heart size is within normal limits. Moderate LAD and right coronary artery calcifications. Moderate pericardial effusion measuring up to 2.1 cm in thickness posteriorly mildly calcified nonaneurysmal abdominal aorta. Normal caliber pulmonary arteries. Multiple mildly enlarged mediastinal lymph nodes. No acute findings in the visualized upper abdomen. Superficial soft tissues are within normal limits. Central airways are patent. Small right and trace left pleural effusions. Dense consolidation in the anterior aspect of the right upper lobe. Additional dense consolidations in the bilateral lower lobes. Diffuse scattered ground-glass nodular opacities throughout both lungs, greater on the right. No pneumothorax. No acute osseous abnormality. CT/Chest without Contrast IMPRESSION: 1. Scattered bilateral airspace consolidations and nodular ground-glass opaciti es, greater on the right. Findings concerning for multifocal pneumonia. Imaging follow-up recommended after medical management t o ensure resolution and exclude underlying malignancy. 2. Small right and trace left pleural effusions. 3. Moderate pericardial effusion. 4. Multiple prominent mediastinal lymph nodes which may be reactive. 5. Coronary artery disease. One or more dose reduction techniques were used (e.g., Automated exposure contr ol, adjustment of the mA and/or kV according to patient size, use of iterative reconstruction technique). Reading Location: [facility]
[2025-01-01 21:00] VITALS: BP 109/68; PULSE 95; RESP 19; TEMP 36.4; O2SAT 95
[2025-01-01 21:18] LABS: Partial Thromboplast Time 33.1 Seconds (24.1-36.2)
[2025-01-01 21:21] LABS: International Normalized Ratio 1.2; Prothrombin Time (Protime)PT. 15.7 SECONDS (11.7-14.9)
[2025-01-01 22:00] VITALS: BP 140/71; PULSE 88; RESP 23; TEMP 36.6; O2SAT 96
[2025-01-01 22:24] LABS: Squamous Epithelial Cells - UA 0 SEEN /hpf (0-5)
[2025-01-01 22:34] LABS: Color, Urine Yellow (Yellow); Glucose, Dipstick Normal (Normal); Ketone-Dipstick Negative (Negative); Leukocyte Esterase-Dipstick 25 /ul (Negative); Nitrite-Dipstick Negative (Negative); Occult Blood-Urine 250 /ul (Negative); Protein-Dipstick 30 mg/dl (Negative); Specific Gravity, Urine 1.025 (1.002-1.030); Urine Bilirubin Dipstick Negative (Negative); Urine Clarity Sl. Cloudy (Clear); Urine Urobilinogen 1 mg/dl (Normal)
[2025-01-01 22:57] LABS: Bacteria 1+ /hpf (None Seen); White Blood Cells 5-10 SEEN /hpf (0-5)
[2025-01-01 22:58] LABS: Coarse Granular Cast 0-5 SEEN /lpf (0-5 /lpf); Mucous, Urine 2+ /hpf (<or=2+); Red Blood Cells-Urine 25-50 SEEN /hpf (0-5)
[2025-01-01 23:00] VITALS: BP 109/68; PULSE 87; RESP 23; TEMP 36.7; O2SAT 96
[2025-01-02] MEDS: Cefdinir 300 MG Capsule PO (00:04)
[2025-01-02 00:14] VITALS: BP 117/89; PULSE 87; RESP 16; TEMP 36.6; O2SAT 100
== END 2025-01-02 00:16 | disposition home or self-care (01) ==
PROVIDERS: Emergency Provider Emergency Medicine; PCP Family Medicine; Visit Provider Emergency Medicine
DX: J18.9 Pneumonia, unspecified organism (principal); I48.91 Unspecified atrial fibrillation; J90 Pleural effusion, not elsewhere classified; I31.39 Other pericardial effusion (noninflammatory); I10 Essential (primary) hypertension; E03.9 Hypothyroidism, unspecified; F17.210 Nicotine dependence, cigarettes, uncomplicated; Z79.01 Long term (current) use of anticoagulants; Z79.890 Hormone replacement therapy; Z79.899 Other long term (current) drug therapy; Z99.81 Dependence on supplemental oxygen
CPT/HCPCS: 94760; 99283; 71046; 71250; 80048; 80053; 81001; 83605; 85025; 85610; 85730; 87040; 87086; 93005; A4216

== ENCOUNTER 2025-01-04 09:00 | Inpatient (IN) | payer MEDICARE, OTHER, SELFPAY ==
[2025-01-04] VITALS (11 sets, daily range): BP systolic 109–154; BP diastolic 70–79; PULSE 74–128; RESP 16–26; TEMP 36.9–37.7; O2SAT 93–96; BMI 25.2; BMI 24.0
--- NOTE | 2025-01-04 09:17 | EKG12_ITS ---
Test Reason : WEAKNESS Blood Pressure : */* mmHG Vent. Rate : 105 BPM Atrial Rate : * BPM P-R Int : * ms QRS Dur : 80 ms QT Int : 340 ms P-R-T Axes : * -23 58 degrees QTcB Int : 449 ms Sinus tachycardia artifact Abnormal ECG Confirmed by MESERET YOUNG ([id number]), editor greeting card RISA CHAO ([id number]) on 01/08/2025 7:11:54 AM Referred By: Confirmed By: MESERET YOUNG
--- NOTE | 2025-01-04 09:18 | EX.ED.DYSGE1 ---
HPI History of Present Illness Chief Complaint: Fever Informant: patient Narrative Narrative: Patient is a 69-year-old male presenting with recurrent fevers. Patient is currently on cefdinir for concern of bilateral pneumonia post influenza. It was prescribed on 3 days ago. He has been taking it as prescribed. Patient had a recent admission from 12/17 through 12/26 for hypoxia associate with influenza A and severe JOSÉ MANUEL as well as hypothyroidism. He was discharged home with Eliquis, levothyroxine, metoprolol and albuterol. Was placed on 3 L of oxygen at rest and 6 L with ambulation. Came back to the ER on 01/01 and was actually evaluated by myself. He had a bilateral pneumonia and fever. Septic workup however was largely negative. He was at his baseline oxygen. Decision made to start cefdinir with close return precautions including continued fever after 48 hours. states that over the past 2 days he is continue to have fevers with a Tmax of 103 last night. At 6 oh this morning was 102.4. Fever does respond to Tylenol. Patient notes that he is starting to feel worse now. His states they are having a harder time keeping his oxygen above 90 and they are having to go up to 4 L at rest. His left the house for the first time to go swimming for 2 hours when she came back he had a fever, was confused when around the house and not wearing his oxygen. Patient did have issues of hospital-associated delirium but that had been improving. Patient continues to have a cough. notes that he has been drinking less fluids. He did have an episode of stool incontinence yesterday but he could not make it to the bathroom in time. No report of any black or blood in his stool. No swelling of the legs reported. No rash. No urinary symptoms reported. No other complaints or concerns at this time [facility] Medical History Acute hypoxemic respiratory failure JOSÉ MANUEL (acute kidney injury) Hypoxia Influenza A Tobacco user History of syncope Dyslipidemia Hypertension Home Medications ?Medication ?Instructions ?Recorded ?Last Taken ?Type amlodipine 5 mg tablet 5 mg PO DAILY #30 tabs 12/26/24 01/03/25 Rx apixaban 5 mg tablet (Eliquis) 5 mg PO BID #60 tabs 12/26/24 01/03/25 Rx levothyroxine 137 mcg tablet 137 mcg PO DAILY@0600 #30 tabs 12/26/24 01/04/25 Rx metoprolol tartrate 25 mg tablet 25 mg PO BID #60 tabs 12/26/24 01/03/25 Rx albuterol sulfate 90 mcg/actuation 2 puff inhalation 4X/DAY PRN 01/01/25 Unknown History aerosol inhaler shortness of breath or wheezing cefdinir 300 mg capsule 300 mg PO Q12H #20 caps 01/01/25 01/04/25 Rx vitamins A,C,J-lhad-eaaelw 2,148 1 tab PO DAILY 01/01/25 01/03/25 History mcg-113 mg-45 mg-17.4 mg tablet (Eye Multivitamin) acetaminophen 500 mg tablet 1,000 mg PO Q6H PRN fever 01/04/25 01/04/25 History (Tylenol Extra Strength) Allergy/AdvReac Type Severity Reaction Status Date / Time Penicillins Allergy Unknown Verified 01/04/25 09:01 Tuenmwf-CSX-EgY Reductase Allergy Other Verified 01/04/25 09:01 Inhibitor (Bouzpdq-Msm-Kzh Reductase Inhibitor) Social History Smoking Status: Current every day smoker tobacco type: cigarettes ROS ROS ED Constitutional Constitutional ED: Reports chills and fever(s) Eyes Eyes: Denies change in vision ENT ENT ED: Reports sore throat; Denies rhinorrhea Cardiovascular Cardiovascular: Denies chest pain or palpitations Respiratory/Chest Respiratory/Chest: Reports cough, dyspnea and sputum Gastrointestinal Gastrointestinal: Reports diarrhea; Denies abdominal pain, nausea or vomiting Musculoskeletal Musculoskeletal: Reports myalgias; Denies arthralgias Integumentary Denies rash Neurologic Neurologic: Reports weakness and other Details: Confusion ; Denies headache(s) Hematologic/Lymphatic Hematologic/Lymphatic: Reports easy bleeding, easy bruising and other Details: On Eliquis EXAM Physical Exam Const Vital Signs: 01/04/25 09:00 01/04/25 09:00 01/04/25 11:04 Temperature 98.7 F 98.4 F Temperature Source Oral Oral Pulse Rate 116 H 112 H 108 H Respiratory Rate 20 H 20 H Respiratory Effort Respiratory Pattern Blood Pressure 131/70 H 135/78 H Blood Pressure Mean 90 97 Pulse Ox 95 95 Oxygen Delivery Method Nasal Cannula Nasal Cannula Oxygen Flow Rate (L/min) 6 3.2 01/04/25 11:04 01/04/25 11:10 Temperature Temperature Source Pulse Rate Respiratory Rate Respiratory Effort Short of Breath Respiratory Pattern Normal Blood Pressure Blood Pressure Mean Pulse Ox 95 Oxygen Delivery Method Nasal Cannula Oxygen Flow Rate (L/min) 3.5 Positive well nourished and well developed General Appearance ED: well developed and NAD HEENT Reports dry mucous membranes HEENT Narrative: Mild injection of the posterior oropharynx. Mouth ED: Yes dry mucous membranes Mouth: dry mucous membranes Eyes PERRL and EOMs intact bilaterally Neck no lymphadenopathy, supple and no JVD Chest Wall inspection of chest normal Resp Resp Narrative: Borderline tachypnea. No respiratory distress. Diminished breath sounds at the bases bilaterally. Cardio regular rhythm and no murmurs Rate: tachycardic GI normal to inspection, nondistended, normoactive bowel sounds and non-tender Extremity normal to inspection General Extremety ED: Negative for edema or tenderness General Extremity: Negative for edema Neuro Sensorium / Orientation: alert Motor Exam: general weakness Psych mental status grossly normal Skin no rashes or lesions noted and no wounds MDM MDM MDM Narrative Medical decision making narrative: Patient evaluated for continued fevers. He is currently on cefdinir 300 mg twice daily with a diagnosis of bilateral pneumonia. He was discharged from the hospital on 12/26 after a weeklong stay for influenza A and bilateral pneumonia. He is continuing to have fevers. Blood cultures from 01/01 showed no growth. On arrival patient is tachycardic and mildly tachypneic. Will repeat infectious workup. Low suspicion for PE as patient is on Eliquis. Concerned that he might require admission at this point for IV antibiotics. Patient does have an uptrending leukocytosis. Chest x-ray reviewed by myself as well as radiology shows worsening infiltrate especially in the right upper lung. Radiology questions if he could be developing a cavitary lesion. As patient has CT of his chest 3 days ago we will hold off on repeat CT at this time. Lactate is normal. Remainder of workup largely normal. He does have some hematuria of uncertain clinical significance. Presentation is not consistent with a kidney stone as he is not complain of any pain. Case discussed with hospitalist and patient will be admitted for IV antibiotics. Hospitalist, Dr. Vines, did request I speak with infectious disease for antibiotic recommendations. He is agreeable vancomycin and cefepime but does recommend adding on Flagyl as well for concern of abscess. This is relayed to hospitalist. Patient started on these antibiotics in the emergency room. Patient and agreeable with this plan of care. Lab Data Attestation: I reviewed the patient's lab results. Labs: Laboratory Results - last 24 hr 01/04/25 01/04/25 10:00 10:55 WBC 13.3 H RBC 3.16 L Hgb 9.1 L Hct 28.9 L MCV 91.5 MCH 28.8 MCHC 31.5 L RDW Std Deviation 47.0 H RDW Coeff of Whit 13.8 Plt Count 275 MPV 10.3 Immature Gran % (Auto) 0.500 Neut % (Auto) 75.1 H Lymph % (Auto) 14.1 L [place] % (Auto) 10.0 Eos % (Auto) 0.1 Baso % (Auto) 0.2 Absolute Neuts (auto) 10.0 H Absolute Lymphs (auto) 1.87 Nucleated RBC % 0 PT 18.6 H INR 1.5 APTT 36.7 H Sodium 138 Potassium 3.8 Chloride 103 Carbon Dioxide 26.0 Anion Gap 8 BUN 24 H Creatinine 1.39 H Est GFR (MDRD) Af Amer 65 Est GFR (MDRD) Non-Af 54 L BUN/Creatinine Ratio 17.3 Glucose 81 Lactic Acid 1.5 Calcium 9.1 Total Bilirubin 0.50 AST 29 ALT 34 Alkaline Phosphatase 97 Total Protein 8.3 H Albumin 2.2 L Globulin 6.1 H Albumin/Globulin Ratio 0.4 L Urine Color Yellow Urine Clarity Sl. Cloudy Urine pH 6.0 Ur Specific [place] 1.015 Urine Protein 100 H Urine Glucose (UA) Normal Urine Ketones 15 H Urine Occult Blood 250 H Urine Nitrite Negative Urine Bilirubin Negative Urine Urobilinogen 1 H Ur Leukocyte Esterase 25 H Urine RBC 25-50 SEEN Urine WBC 0-5 SEEN Ur Squamous Epith Cells 0 SEEN Amorphous Sediment 1+ URATE Urine Bacteria 0 SEEN Hyaline Casts 0-5 SEEN Fine Granular Casts 0-5 SEEN Coarse Granular Casts 0-5 SEEN Urine Mucus 0 SEEN Radiography Diagnostic Testing: Clinical Impression(s) from Imaging Studies Chest X-Ray 01/04/25 10:35 IMPRESSION: Progressive rounded pneumonia/mass in the right upper lobe as compared to prior study. Persistent pleural-parenchymal changes at the right lung base with an air-fluid level suggestive of possible either necrosis or cavitation in the right lower lobe. Reading Location: [id number] Rhythm Strip Rhythm Strip: Sinus Tach Rate: 105 Ectopy: None EKG Initial EKG: Attestation: I personally reviewed and interpreted this EKG as follows: Interpretation: Sinus Tachycardia Comments: Sinus tachycardia at a rate of 105 bpm Normal axis Normal intervals Normal ST segments Large amount of baseline artifact present Management Discussion w/another healthcare provider: Shirt Sewer (ID) Discharge Plan Dx/Rx/DC Orders Clinical Impression: Bilateral pneumonia, Fever, Paroxysmal atrial fibrillation with RVR Disposition Disposition: Acute Care Hospital [facility] Discharge Date/Time: 01/04/25 13:44
[2025-01-04] MEDS: 0.9% Normal Saline (1000mL) 1,000 ML 999 ML IV (10:04)
[2025-01-04 10:30] LABS: Absolute Lymphocyte Count 1.87 X10^3/uL (0.83-4.51); Basophil# 0.02 X10^3/uL; Basophil% 0.2 % (0-1); Eosinophil# 0.01 X10^3/uL; Eosinophils% 0.1 % (0-5); Hematocrit 28.9 % (40-54); Hemoglobin 9.1 g/dL (13.0-16.5); Lymphocyte # 1.87 X10^3/ul (0.83-4.51); Lymphocyte % 14.1 % (19-41); Mean Corp Hgb Conc 31.5 g/dL (32-36); Mean Corpuscular Hgb 28.8 pg (27.0-32.0); Mean Corpuscular Volume 91.5 fL (80-94); Mean Platelet Vol. 10.3 fl (6.2-12.0); Monocyte# 1.33 X10^3/uL; NRBC Flagged by Analyzer 0 % (0-5); Neutrophil # 9.96 X10^3/uL (2.7-7.7); Neutrophil % 75.1 % (47-70); Platelet Count 275 K/mm3 (150-450); RBC Distribution Width CV 13.8 % (11.6-14.6); Red Blood Count 3.16 M/mm3 (4.6-6.2); White Blood Count 13.3 K/mm3 (4.4-11.0)
--- NOTE | 2025-01-04 10:35 | RAD_ITS ---
PROCEDURE: CHEST PA AND LATERAL REASON FOR EXAM: Recent pneumonia. Recent admission for pneumonia and influenza a. TECHNIQUE: PA and lateral chest radiographs were obtained. COMPARISON: Comparison is made with prior study dated January 01, 2025. FINDINGS: Mild cardiomegaly. Since prior study, there has been an increase in size of the rounded mass/pneumonic infiltration in the right upper lobe measuring 7.5 cm x 6.6 cm. Persistent right basilar infiltrate with small right pleural effusion. Stable air-fluid level in the right lower lobe. Minimal increased markings at the left lung base. The bones are unremarkable. RAD/Chest PA and Lateral IMPRESSION: Progressive rounded pneumonia/mass in the right upper lobe as compared to prior study. Persistent pleural-parenchymal changes at the right lung base with an air-fluid level suggestive of possible either necro sis or cavitation in the right lower lobe. Reading Location: [facility]
[2025-01-04 10:39] LABS: International Normalized Ratio 1.5; Prothrombin Time (Protime)PT. 18.6 SECONDS (11.7-14.9)
[2025-01-04 10:40] LABS: Partial Thromboplast Time 36.7 Seconds (24.1-36.2)
[2025-01-04 10:47] LABS: ALB/GLOB Ratio 0.4 RATIO (0.9-2.4); AST(SGOT) 29 U/L (15-37); Alanine Aminotransfer ALT/SGPT 34 U/L (16-61); Albumin, Serum 2.2 g/dL (3.2-5.0); Alkaline Phosphatase 97 U/L (45-117); Anion Gap 8 (5-15); BUN 24 mg/dL (7-18); BUN/Creat Ratio 17.3 RATIO (10-20); Calcium,Total 9.1 mg/dL (8.5-10.1); Chloride 103 mmol/L (98-107); Creatinine, Serum 1.39 mg/dL (0.70-1.30); EST Glomerular Filtration Rate 54 mL/min (>60); Est Glom Filt Rate - Afr Amer 65 mL/min (>60); Globulin 6.1 g/dL (2.2-4.2); Glucose 81 mg/dL (74-106); Potassium 3.8 mmol/L (3.5-5.1); Protein, Total 8.3 g/dL (6.4-8.2); Sodium Level 138 mmol/L (136-145)
[2025-01-04 11:00] LABS: Lactic Acid 1.5 mmol/L (0.4-1.9)
[2025-01-04 11:04] LABS: Bacteria 0 SEEN /hpf (None Seen); Mucous, Urine 0 SEEN /hpf (<or=2+); Squamous Epithelial Cells - UA 0 SEEN /hpf (0-5)
[2025-01-04 11:06] LABS: Color, Urine Yellow (Yellow); Glucose, Dipstick Normal (Normal); Ketone-Dipstick 15 mg/dl (Negative); Leukocyte Esterase-Dipstick 25 /ul (Negative); Nitrite-Dipstick Negative (Negative); Occult Blood-Urine 250 /ul (Negative); Protein-Dipstick 100 mg/dl (Negative); Specific Gravity, Urine 1.015 (1.002-1.030); Urine Bilirubin Dipstick Negative (Negative); Urine Clarity Sl. Cloudy (Clear); Urine Urobilinogen 1 mg/dl (Normal)
--- NOTE | 2025-01-04 11:30 | PCM.HP.STD ---
[facility] - General General Date of Admission: 01/04/25 Date of Service: 01/04/25 Chief Complaint: Shortness of breath. High-grade fever 103 Fahrenheit. Was admitted for pneumonia in first week of December. HPI Narrative LUZ MARIA CASTANO, is a 69 M who was discharged after 9 days of hospital admission on 12/26/2024 for pneumonia due to acute hypoxic respiratory failure and discharged on home O2 3 L at rest. At that time patient had acute influenza A and was treated with full course of Tamiflu and antibiotic. As per his when he was discharged he was still having a rattling sound in the lung. He felt worse after 3 days of discharge with cough purulent sputum and dyspnea on exertion. On past Wednesday patient was having fever, and requires 6 L of oxygen on exertion along with myalgia and bodyaches and patient was discharged on Eliquis. He did not feel well and was having high-grade fever temperature 103 Fahrenheit therefore came back to ER. Patient has dyspnea at rest. In ED, patient tachycardic but normal blood pressure and required [address] L of [address]. [address] CT showed scattered bilateral airspace consolidation and nodular groundglass opacities, right worse than left concerning for multifocal pneumonia along with a small pleural effusion. Patient started on broad-spectrum antibiotic vancomycin, cefepime and Flagyl and admitted. Patient also has history of transient A-fib in 2016 and last August he was taken off Eliquis but went into A-fib RVR on past Wednesday. Patient is on Eliquis and metoprolol. [facility] Medical History Acute hypoxemic respiratory failure JOSÉ MANUEL (acute kidney injury) Hypoxia Influenza A Tobacco user History of syncope Dyslipidemia Hypertension Home Medications ?Medication ?Instructions ?Recorded ?Last Taken ?Type amlodipine 5 mg tablet 5 mg PO DAILY #30 tabs 12/26/24 01/03/25 Rx apixaban 5 mg tablet (Eliquis) 5 mg PO BID #60 tabs 12/26/24 01/03/25 Rx levothyroxine 137 mcg tablet 137 mcg PO DAILY@0600 #30 tabs 12/26/24 01/04/25 Rx metoprolol tartrate 25 mg tablet 25 mg PO BID #60 tabs 12/26/24 01/03/25 Rx albuterol sulfate 90 mcg/actuation 2 puff inhalation 4X/DAY PRN 01/01/25 Unknown History aerosol inhaler shortness of breath or wheezing cefdinir 300 mg capsule 300 mg PO Q12H #20 caps 01/01/25 01/04/25 Rx vitamins A,C,Q-wykl-qpoqfr 2,148 1 tab PO DAILY 01/01/25 01/03/25 History mcg-113 mg-45 mg-17.4 mg tablet (Eye Multivitamin) acetaminophen 500 mg tablet 1,000 mg PO Q6H PRN fever 01/04/25 01/04/25 History (Tylenol Extra Strength) Allergy/AdvReac Type Severity Reaction Status Date / Time Penicillins Allergy Unknown Verified 01/04/25 09:01 Zfnekfh-EEV-NdU Reductase Allergy Other Verified 01/04/25 09:01 Inhibitor (Tvtzxdt-Ujq-Umh Reductase Inhibitor) Social History Smoking Status: Current every day smoker tobacco type: cigarettes ROS ROS Narrative Constitutional: Reports acute onset of fatigue and weakness. High-grade fever. HEENT: Reports systems reviewed and no addt'l complaints, except as documented Respiratory/Chest: As described in HPI. Dyspnea at rest. Hypoxia CVS: Mild pleuritic chest pain in the center from coughing. Gastrointestinal: Denies coffee ground emesis, hematemesis or vomiting Genitourinary: Denies burning urination or new urinary tract symptoms Musculoskeletal: Denies acute joint pain or limited range of motion. No acute injury Neurologic: Denies seizure-like symptoms. skin: No ulcer. No rash Endocrinology: Reports systems reviewed and no addt'l complaints, except as documented Hematologic/Lymphatic: Reports systems reviewed and no addt'l complaints, except as documented Rest 14 ROS are negative except as mentioned in HPI Vital Signs Vital Signs Vital Signs: 01/04/25 09:00 01/04/25 09:00 01/04/25 11:04 Temperature 98.7 F 98.4 F Temperature Source Oral Oral Pulse Rate 116 H 112 H 108 H Respiratory Rate 20 H 20 H Respiratory Effort Respiratory Pattern Blood Pressure 131/70 H 135/78 H Blood Pressure Mean 90 97 Pulse Ox 95 95 Oxygen Delivery Method Nasal Cannula Nasal Cannula Oxygen Flow Rate (L/min) 6 3.2 01/04/25 11:04 01/04/25 11:10 Temperature Temperature Source Pulse Rate Respiratory Rate Respiratory Effort Short of Breath Respiratory Pattern Normal Blood Pressure Blood Pressure Mean Pulse Ox 95 Oxygen Delivery Method Nasal Cannula Oxygen Flow Rate (L/min) 3.5 Weight Weight: 191 lb 12.835 oz Body Mass Index (BMI) 25.2 Physical Exam Narrative General: Alert, Oriented x3, Cooperative HEENT: Atraumatic, PERRLA, EOMI, Normocephalic Oral: Oral mucosa dry no Gingival or Mucosal Lesions/ Ulcerations Neck: Supple, No JVD, Negative Carotid Bruits Chest wall/Lungs: Air entry diminished in in both lungs. Bilateral coarse crepitations. Tachypnea and hypoxia Cardiovascular: A-fib, RVR normal S1, Normal S2, No M/G/R Abdomen: Bowel Sounds Present, Soft, Non Tender, Non-Distended : No dysuria. No renal angle tenderness. No suprapubic tenderness. Extremities: No edema, Capillary Refill Less than 3 Seconds Skin: No rashes, No breakdown Musculoskeletal: No Tenderness to Palpation of Joints or Extremities Neurological: Cranial nerves II-XII grossly intact, DTR 2+/4. No acute focal neurological deficit. Psych/Mental Status: Flat affect. Results Lab / Micro Data 01/04/25 10:00 01/04/25 10:00 Labs: Laboratory Results - last 24 hr 01/04/25 10:00: WBC 13.3 H, RBC 3.16 L, Hgb 9.1 L, Hct 28.9 L, MCV 91.5, MCH 28.8, MCHC 31.5 L, RDW Std Deviation 47.0 H, RDW Coeff of Whit 13.8, Plt Count 275, MPV 10.3, Immature Gran % (Auto) 0.500, Neut % (Auto) 75.1 H, Lymph % (Auto) 14.1 L, [place] % (Auto) 10.0, Eos % (Auto) 0.1, Baso % (Auto) 0.2, Absolute Neuts (auto) 10.0 H, Absolute Lymphs (auto) 1.87, Nucleated RBC % 0, PT 18.6 H, INR 1.5, APTT 36.7 H, Sodium 138, Potassium 3.8, Chloride 103, Carbon Dioxide 26.0, Anion Gap 8, BUN 24 H, Creatinine 1.39 H, Est GFR (MDRD) Af Amer 65, Est GFR (MDRD) Non-Af 54 L, BUN/Creatinine Ratio 17.3, Glucose 81, Lactic Acid 1.5, Calcium 9.1, Total Bilirubin 0.50, AST 29, ALT 34, Alkaline Phosphatase 97, Total Protein 8.3 H, Albumin 2.2 L, Globulin 6.1 H, Albumin/Globulin Ratio 0.4 L Imaging Radiology Impression Chest X-Ray 01/04/25 10:35 IMPRESSION: Progressive rounded pneumonia/mass in the right upper lobe as compared to prior study. Persistent pleural-parenchymal changes at the right lung base with an air-fluid level suggestive of possible either necrosis or cavitation in the right lower lobe. Reading Location: [id number] Assessment & Plan Assessment/Plan (1) Bilateral pneumonia: (2) Paroxysmal atrial fibrillation with RVR: PLAN: Plan 61-year-old male admitted with high-grade fever, dyspnea at rest, hypoxia and chest and CT findings suggestive of bilateral multifocal pneumonia. Patient had full course of Tamiflu and antibiotic. 1. Bilateral multifocal bilateral pneumonia complicated with possibility of either necrosis or cavitation in right lower lobe: CT chest individually reviewed and shows thick consolidation/mass in right upper lobe and right lung base. CT also reported possible either necrosis or cavitation right lower lobe. Small right pleural effusion and trace left pleural effusion. With this finding, chief cook is consulted. ID also consulted from ER for nonresolving pneumonia. Pneumonia workup ordered. Patient started on IV vancomycin and cefepime and Flagyl. Triple PCR for SARS-CoV-2, flu and RSV are negative. Lactic acid normal. Patient does not meet criteria for sepsis at this point of time. 2. Continued nicotine use/smoking with possibility of undiagnosed COPD/emphysema: Patient started smoking cigarettes about a pack per day since teenage. Currently smokes 4 to 5 cigarettes. On nicotine patch offered. Possible undiagnosed pneumonia. Patient is being managed on scheduled bronchodilator, Mucinex, incentive spirometry and Pep. 3. Paroxysmal A-fib with RVR: Had transient A-fib in 2017 and then came back on past Wednesday. Probably precipitated by pneumonia. On metoprolol and Eliquis. 4. Possible CKD stage III: Patient had JOSÉ MANUEL during last admission and creatinine was 3.94 which improved to 1.12. Again increased to 1.39. Does not meet criteria for JOSÉ MANUEL. Monitor kidney function. Dr. Velazquez are in normal range. 5.. Hypothyroidism-patient is on Synthroid Living will/advanced directive/end of life care: Patient does not have living will or advanced directive. His present in the ED is the next of kin. After discussion of benefits/risks procedures involved with full code, DNR CC arrest and DNR CC, the patient opted for full code. Patient does want artificial life support including intubation, tube feed, ventilator and/chest compression, central venous catheter, vasopressor and DC shock if needed Total time spent in [id number] encounter in discussion of advanced directive 17 minutes. Microbiology Past 72 Hours 01/04/25 10:24 Mucosa - Nose SARS-CoV-2, Influenza & RSV (PCR) - Final Laboratory Results 01/04/25 10:00: WBC 13.3 H, RBC 3.16 L, Hgb 9.1 L, Hct 28.9 L, MCV 91.5, MCH 28.8, MCHC 31.5 L, RDW Std Deviation 47.0 H, RDW Coeff of Whit 13.8, Plt Count 275, MPV 10.3, Immature Gran % (Auto) 0.500, Neut % (Auto) 75.1 H, Lymph % (Auto) 14.1 L, [place] % (Auto) 10.0, Eos % (Auto) 0.1, Baso % (Auto) 0.2, Absolute Neuts (auto) 10.0 H, Absolute Lymphs (auto) 1.87, Nucleated RBC % 0, PT 18.6 H, INR 1.5, APTT 36.7 H, Sodium 138, Potassium 3.8, Chloride 103, Carbon Dioxide 26.0, Anion Gap 8, BUN 24 H, Creatinine 1.39 H, Est GFR (MDRD) Af Amer 65, Est GFR (MDRD) Non-Af 54 L, BUN/Creatinine Ratio 17.3, Glucose 81, Lactic Acid 1.5, Calcium 9.1, Total Bilirubin 0.50, AST 29, ALT 34, Alkaline Phosphatase 97, Total Protein 8.3 H, Albumin 2.2 L, Globulin 6.1 H, Albumin/Globulin Ratio 0.4 L 01/04/25 10:55: Urine Color Yellow, Urine Clarity Sl. Cloudy, Urine pH 6.0, Ur Specific [place] 1.015, Urine Protein 100 H, Urine Glucose (UA) Normal, Urine Ketones 15 H, Urine Occult Blood 250 H, Urine Nitrite Negative, Urine Bilirubin Negative, Urine Urobilinogen 1 H, Ur Leukocyte Esterase 25 H, Urine RBC 25-50 SEEN, Urine WBC 0-5 SEEN, Ur Squamous Epith Cells 0 SEEN, Amorphous Sediment 1+ URATE, Urine Bacteria 0 SEEN, Hyaline Casts 0-5 SEEN, Fine Granular Casts 0-5 SEEN, Coarse Granular Casts 0-5 SEEN, Urine Mucus 0 SEEN Clinical Impression(s) from Imaging Studies Chest X-Ray 01/04/25 10:35 IMPRESSION: Progressive rounded pneumonia/mass in the right upper lobe as compared to prior study. Persistent pleural-parenchymal changes at the right lung base with an air-fluid level suggestive of possible either necrosis or cavitation in the right lower lobe. Reading Location: [id number] Charges/Coding Visit Charges Inpatient E&M: 63493 Init Hosp L3 Procedures Hospitalists Procedures: 43854 Advncd Care Plan 30 Min
[2025-01-04 11:42] LABS: Red Blood Cells-Urine 25-50 SEEN /hpf (0-5)
[2025-01-04 11:44] LABS: Amorphous Sediment 1+ URATE; White Blood Cells 0-5 SEEN /hpf (0-5)
[2025-01-04 11:45] LABS: Coarse Granular Cast 0-5 SEEN /lpf (0-5 /lpf); Fine Granular Cast- Urine 0-5 SEEN /lpf (0-5); Hyaline Cast 0-5 SEEN /lpf (0-5)
[2025-01-04] MEDS: MethylPREDNISolone 125 MG/2 ML Vial 60 MG IV (11:50)
[2025-01-04] MEDS: Cefepime HCl 2 GM in 0.9% Normal Saline (100mL MB+) 100 ML IV (12:03)
[2025-01-04] MEDS: metroNIDAZOLE 500 MG/100 ML BAG 100 MG IV ×2 (12:15→21:17)
[2025-01-04] MEDS: Vancomycin HCl 2,000 MG in 0.9% Normal Saline (500mL Bag) 500 ML 250 MG IV (13:23)
--- NOTE | 2025-01-04 14:32 | PCM.RX.CS ---
Consult Antibiotic Management Pharmacy has been consulted to manage selected antibiotic: Vancomycin Type of Intervention Type of Consult: New start Suspected Infection Suspected Infection: Other (FEVER, UNKNOWN) Prior Doses of Antibiotics Prior Doses of Antibiotics Received/Current Regimen: Vancomycin 2000 mg IV x 1 given 01/04/25 @ 1323 Labs Labs: Sodium 138 mmol/L (136-145) 01/04/25 10:00 Potassium 3.8 mmol/L (3.5-5.1) 01/04/25 10:00 Chloride 103 mmol/L (98-107) 01/04/25 10:00 Carbon Dioxide 26.0 mmol/L (21.0-32.0) 01/04/25 10:00 Anion Gap 8 (5-15) 01/04/25 10:00 BUN 24 mg/dL (7-18) H 01/04/25 10:00 Creatinine 1.39 mg/dL (0.70-1.30) H 01/04/25 10:00 Est GFR (MDRD) Af Amer 65 mL/min (>60) 01/04/25 10:00 Est GFR (MDRD) Non-Af 54 mL/min (>60) L 01/04/25 10:00 BUN/Creatinine Ratio 17.3 RATIO (10-20) 01/04/25 10:00 Glucose 81 mg/dL (74-106) 01/04/25 10:00 Microbiology Microbiology: Microbiology 01/04/25 10:24 Mucosa - Nose SARS-CoV-2, Influenza & RSV (PCR) - Final Dosing Weight Weight used for dosin lb 15.739 oz Estimated Creatinine Clearance Estimated Creatinine Clearance: ~ 57 Goal Trough Goal Trough: 15-20 mcg/mL Pharmacy Plan for Drug Dosing Pharmacy Plan for Drug Dosing: Vancomycin 2000 mg IV x 1 followed by 750 mg Q12H Pharmacy Service will continue to monitor and adjust dosing as required. Follow-Up Labs Follow-Up Labs: Trough: Vancomycin Date/Time Labs Ordered Labs to be done on [date and time ordered]: 01/06/25 @ 5918
[2025-01-04] MEDS: KCL 20MEQ in 0.9% NS 20 MEQ/1,000 ML IV.SOLN. 75 MEQ IV (15:06)
[2025-01-04] MEDS: guaiFENesin/D-Methorphan TAB.SR.12H 2 TABLET PO ×2 (15:06→21:21)
[2025-01-04] MEDS: Acetaminophen 500 MG Tablet 1000 MG PO (15:13)
[2025-01-04] MEDS: Ipratropium/Albuterol Sulfate 3 ML AMPUL.NEB INHALATION (18:58)
[2025-01-04] MEDS: Cefepime HCl 1 GM in 0.9% Normal Saline (50mL MB+) 50 ML IV (20:39)
[2025-01-04] MEDS: APIXABAN 5 MG TABLET PO (21:21)
[2025-01-04 21:34] LABS: Magnesium 2.1 mg/dL (1.6-2.6)
[2025-01-05] VITALS (15 sets, daily range): BP systolic 98–144; BP diastolic 68–107; PULSE 69–104; RESP 15–22; TEMP 36.1–37.1; O2SAT 92–100
--- NOTE | 2025-01-05 | FLU_PTH ---
PATIENT: LUZ MARIA CASTANO LOC: [facility] U#:[id number] AGE/SX: 69/M ROOM: [facility] RE01/04/[address]: Dr. Wolf Norman MD : [id number] BED: 1 DIS: 01/08/2025 SPEC #: [id number] RECD: 01/05/25 13:39 STATUS: LOLA REQ #: [id number] KEYANA: 01/05/25 00:[address]: Terrence Vines DEPT: CYTOLOGY RECD BY: Urszula De ENTERED: 01/05/25 13:41 SP TYPE: Fluid OTHR DR: MD Dr. Saleem Roe MD Dr. Bruce Arthur, MD Dr. Derek Brown, DO Dr. David P Myers, MD Dr. Edward Matheis, MD Dr. Gautam Baskaran, MD Dr. Yordanos Habtegebriel, MD Dr. Hemant Dand, MD Dr. Jose Ochoa, MD Dr. Justin Wong, MD Dr. Kimber Foust, MD Dr. Lamia Aljundi, MD Dr. Marisa Magana, MD Dr. Pritam Ghosh, MD Dr. Pavan Irukulla, MD Dr. Robert Leininger, MD Dr. Saad Farooqi, MD Dr. Sukhdeep Dhesi, DO Dr. Sujoy Gill, MD Dr. Soleyah Groves, MD Dr. Timothy Fernstrom, DO Dr. Vikram Anand, MD Dr. William Haden, MD Dr. William Lago, MD Tissues: Bronchus of right lower lobe Procedures: PC (control) Special Stain Group II Special Stain Group I Surgery Specimen Level IV AFB Stain (control) GMS Stain (control) Cytospin Fluid HEADER OPERATION: Bronchoscopy PRE-OP DIAGNOSIS: Abnormal CT TISSUE SUBMITTED: Right lower lung fluid for cytology DIAGNOSIS CYTOLOGY Right lower lung fluid: Collection of acute inflammatory cells consistent with abscess. Rare groups of epithelial cells showing reactive changes. See comment. 01/08/2025 COMMENT Special stains for acid fast bacilli, fungi and pneumocystis are negative for organisms; matched controls are appropriate. Case has been reviewed in consultation with Dr. Lozano who concurs with the above diagnosis. IDC:[id number] CYTOLOGY STUDY Slides are reviewed. CYTOLOGY GROSS Received is 10 ml of pale-red cloudy fluid labeled with the patient's name and and designated per the requisition as Right lower lung fluid. Submitted for cytology preparation including cell block. Mr 01/05/2025 TC: CPT: 16496,30215 ,45113g2
[2025-01-05] MEDS: KCL 20MEQ in 0.9% NS 20 MEQ/1,000 ML IV.SOLN. 75 MEQ IV (01:08)
[2025-01-05] MEDS: Vancomycin HCl 750 MG in 0.9% Normal Saline (250mL Bag) 250 ML 250 MG IV (01:45)
[2025-01-05] MEDS: Cefepime HCl 1 GM in 0.9% Normal Saline (50mL MB+) 50 ML IV ×3 (05:09→21:13)
[2025-01-05] MEDS: metroNIDAZOLE 500 MG/100 ML BAG 100 MG IV ×3 (05:10→20:09)
[2025-01-05 06:40] LABS: Absolute Lymphocyte Count 0.96 X10^3/uL (0.83-4.51); Absolute Neutrophil Count 10.5 X10^3/uL (2.0-7.7); Basophil# 0.02 X10^3/uL; Basophil% 0.2 % (0-1); Hematocrit 27.4 % (40-54); Hemoglobin 8.5 g/dL (13.0-16.5); Lymphocyte # 0.96 X10^3/ul (0.83-4.51); Lymphocyte % 7.7 % (19-41); Mean Corpuscular Hgb 28.1 pg (27.0-32.0); Mean Corpuscular Volume 90.7 fL (80-94); Mean Platelet Vol. 10.1 fl (6.2-12.0); Monocyte# 0.83 X10^3/uL; Monocyte% 6.7 % (0-10); NRBC Flagged by Analyzer 0 % (0-5); Neutrophil # 10.51 X10^3/uL (2.7-7.7); Neutrophil % 84.6 % (47-70); Platelet Count 256 K/mm3 (150-450); RBC Distribution Width CV 13.8 % (11.6-14.6); RBC Distribution Width SD 45.2 fl (35.1-43.9); Red Blood Count 3.02 M/mm3 (4.6-6.2); White Blood Count 12.4 K/mm3 (4.4-11.0)
[2025-01-05 07:18] LABS: Anion Gap 6 (5-15); BUN 27 mg/dL (7-18); BUN/Creat Ratio 26.5 RATIO (10-20); Calcium,Total 8.2 mg/dL (8.5-10.1); Chloride 110 mmol/L (98-107); Creatinine, Serum 1.02 mg/dL (0.70-1.30); EST Glomerular Filtration Rate 77 mL/min (>60); Est Glom Filt Rate - Afr Amer 93 mL/min (>60); Estimated Creatinine Clearance 78.33 ml/min; Glucose 121 mg/dL (74-106); Potassium 3.9 mmol/L (3.5-5.1); Sodium Level 140 mmol/L (136-145)
--- NOTE | 2025-01-05 07:46 | PN.HOSP_ITS ---
Reason for Visit Reason for Visit: Diagnoses Paroxysmal atrial fibrillation (01/04/25) Pneumonia, unspecified organism (01/04/25) Objective Data Objective Data Vital Signs: Vital Signs Temp Pulse Resp BP Pulse Ox O2 Del Method O2 Flow Rate 98.2 F 75 16 131/69 H 96 Nasal Cannula 2 01/05/25 04:00 01/05/25 04:00 01/05/25 04:00 01/05/25 04:00 01/05/25 04:00 01/05/25 04:00 01/05/25 04:00 Oxygen Flow Rate (L/min) 2 Oxygen Delivery Method Nasal Cannula Weight: 182 lb 12.211 oz Body Mass Index (BMI) 24.0 Intake & Output: Intake and Output for Last 24 Hours 01/03/25 01/04/25 01/05/25 23:59 23:59 23:59 Intake Total 1890 / 2140 1417.5 / 1417.5 Output Total 750 / 750 Balance 1890 / 1590 667.5 / 667.5 Lab / Micro Data 01/05/25 Unknown 01/05/25 Unknown Labs: Laboratory Results - last 24 hr 01/04/25 10:00: WBC 13.3 H, RBC 3.16 L, Hgb 9.1 L, Hct 28.9 L, MCV 91.5, MCH 28.8, MCHC 31.5 L, RDW Std Deviation 47.0 H, RDW Coeff of Whit 13.8, Plt Count 275, MPV 10.3, Immature Gran % (Auto) 0.500, Neut % (Auto) 75.1 H, Lymph % (Auto) 14.1 L, [place] % (Auto) 10.0, Eos % (Auto) 0.1, Baso % (Auto) 0.2, Absolute Neuts (auto) 10.0 H, Absolute Lymphs (auto) 1.87, Nucleated RBC % 0, PT 18.6 H, INR 1.5, APTT 36.7 H, Sodium 138, Potassium 3.8, Chloride 103, Carbon Dioxide 26.0, Anion Gap 8, BUN 24 H, Creatinine 1.39 H, Est GFR (MDRD) Af Amer 65, Est GFR (MDRD) Non-Af 54 L, BUN/Creatinine Ratio 17.3, Glucose 81, Lactic Acid 1.5, Calcium 9.1, Magnesium 2.1, Total Bilirubin 0.50, AST 29, ALT 34, Alkaline Phosphatase 97, Total Protein 8.3 H, Albumin 2.2 L, Globulin 6.1 H, A lbumin/Globulin Ratio 0.4 L 01/04/25 10:55: Urine Color Yellow, Urine Clarity Sl. Cloudy, Urine pH 6.0, Ur Specific [place] 1.015, Urine Protein 100 H, Urine Glucose (UA) Normal, Urine Ketones 15 H, Urine Occult Blood 250 H, Urine Nitrite Negative, Urine Bilirubin Negative, Urine Urobilinogen 1 H, Ur Leukocyte Esterase 25 H, Urine RBC 25-50 SEEN, Urine WBC 0-5 SEEN, Ur Squamous Epith Cells 0 SEEN, Amorphous Sediment 1+ URATE, Urine Bacteria 0 SEEN, Hyaline Casts 0-5 SEEN, Fine Granular Casts 0-5 SEEN, Coarse Granular Casts 0-5 SEEN, Urine Mucus 0 SEEN 01/05/25 : WBC 12.4 H, RBC 3.02 L, Hgb 8.5 L, Hct 27.4 L, MCV 90.7, MCH 28.1, M CHC 31.0 L, RDW Std Deviation 45.2 H, RDW Coeff of Whit 13.8, Plt Count 256, MPV 10.1, Immature Gran % (Auto) 0.800, Neut % (Auto) 84.6 H, Lymph % (Auto) 7.7 L, [place] % (Auto) 6.7, Eos % (Auto) 0.0, Baso % (Auto) 0.2, Absolute Neuts (auto) 10.5 H, Absolute Lymphs (auto) 0.96, Nucleated RBC % 0, Sodium 140, Potassium 3.9, Chloride 110 H, Carbon Dioxide 24.0, Anion Gap 6, BUN 27 H, Creatinine 1.02, Estim Creat Clear Calc 78.33, Est GFR (MDRD) Af Amer 93, Est GFR (MDRD) Non-Af 77, BUN/Creatinine Ratio 26.5 H, Glucose 121 H, Calcium 8.2 L, TSH 10.900 H, Free T4 1.50 H Micro: Microbiology 01/04/25 14:15 Mucosa - Nasopharyngeal Respiratory Panel (PCR) - Final 01/04/25 10:24 Mucosa - Nose SARS-CoV-2, Influenza & RSV (PCR) - Final Radiography Diagnostic Testing: Radiology Impression Chest X-Ray 01/04/25 10:35 IMPRESSION: Progressive rounded pneumonia/mass in the right upper lobe as compared to prior study. Persistent pleural-parenchymal changes at the right lung base with an air-fluid level suggestive of possible either necrosis or cavitation in the right lower lobe. Reading Location: [facility] Rhythm Strip Rhythm Strip: Sinus Tach Rate: 105 Ectopy: None Physical Exam Narrative Seen and examined Patient did not had fever after admission in ICU. Currently on 2 L of oxygen. He had good sleep last night. Respiratory distress and shortness of breath much better. Physical exam General: Alert, Oriented x3, Cooperative HEENT: Atraumatic, PERRLA, EOMI, Normocephalic Oral: Oral mucosa dry no Gingival or Mucosal Lesions/ Ulcerations Neck: Supple, No JVD, Negative Carotid Bruits Chest wall/Lungs: Air entry diminished in in both lungs. Bilateral fine crepitations. Tachypnea resolved. RR 16 Cardiovascular: Sinus rhythm, normal S1, Normal S2, No M/G/R Abdomen: Bowel Sounds Present, Soft, Non Tender, Non-Distended : No dysuria. No renal angle tenderness. No suprapubic tenderness. Extremities: No edema, Capillary Refill Less than 3 Seconds Skin: No rashes, No breakdown Musculoskeletal: No Tenderness to Palpation of Joints or Extremities Neurological: Cranial nerves II-XII grossly intact, DTR 2+/4. No acute focal neurological deficit. Psych/Mental Status: Flat affect. Assessment & Plan Assessment/Plan (1) Bilateral pneumonia: (2) Paroxysmal atrial fibrillation with RVR: PLAN: Plan 61-year-old male admitted with high-grade fever, dyspnea at rest, hypoxia and chest and CT findings suggestive of bilateral multifocal pneumonia. Patient had full course of Tamiflu and antibiotic. 1. Bilateral multifocal/multi lobar pneumonia complicated with possibility of either necrosis or cavitation in right lower lobe: CT chest individually reviewed and shows thick consolidation/mass in right upper lobe and right lung base. CT also reported possible either necrosis or cavitation right lower lobe. Small right pleural effusion and trace left pleural effusion. With this finding, quality associate is consulted. ID also consulted from ER for nonresolving pneumonia. Pneumonia workup ordered. Patient started on IV vancomycin and cefepime and Flagyl. Triple PCR for SARS-CoV-2, flu and RSV are negative. Lactic acid normal. Patient does not meet criteria for sepsis at this point of time. 01/05: Patient respiratory status and shortness of breath is much improved. On 2 L of oxygen. [employer] and ID to see the patient. Continue the above antibiotic 2. Continued nicotine use/smoking with possibility of undiagnosed COPD/emphysema: Patient started smoking cigarettes about a pack per day since teenage. Currently smokes 4 to 5 cigarettes. On nicotine patch offered. Possible undiagnosed pneumonia. Patient is being managed on scheduled bronchodilator, Mucinex, incentive spirometry and Pep. 3. Paroxysmal A-fib with RVR: Had transient A-fib in 2016 and then came back on past Wednesday. Probably precipitated by pneumonia. On metoprolol and Eliquis. 01/05: Heart rate is controlled. Converted to sinus rhythm. Continue home medication. 4. Possible CKD stage III: Patient had JOSÉ MANUEL during last admission and creatinine was 3.94 which improved to 1.12. Again increased to 1.39. Does not meet criteria for JOSÉ MANUEL. Monitor kidney function. Dr. Velazquez are in normal range. 01/05: BUN/creatinine 27/1.02. 5.. Hypothyroidism-patient is on Synthroid 01/05 TSH 10.9 high. Free T41.5. Usually TSH should be suppressed if it is from high dose of Synthroid but it is high. Continue holding Synthroid Living will/advanced directive/end of life care: Patient does not have living will or advanced directive. His present in the ED is the next of kin. After discussion of benefits/risks procedures involved with full code, DNR CC arrest and DNR CC, the patient opted for full code. Patient does want artificial life support including intubation, tube feed, ventilator and/chest compression, central venous catheter, vasopressor and DC shock if needed Total time spent in [id number] encounter in discussion of advanced directive 17 minutes. Microbiology Past 72 Hours 01/04/25 14:15 Mucosa - Nasopharyngeal Respiratory Panel (PCR) - Final 01/04/25 10:24 Mucosa - Nose SARS-CoV-2, Influenza & RSV (PCR) - Final Laboratory Results 01/04/25 10:00: WBC 13.3 H, RBC 3.16 L, Hgb 9.1 L, Hct 28.9 L, MCV 91.5, MCH 28.8, MCHC 31.5 L, RDW Std Deviation 47.0 H, RDW Coeff of Whit 13.8, Plt Count 275, MPV 10.3, Immature Gran % (Auto) 0.500, Neut % (Auto) 75.1 H, Lymph % (Auto) 14.1 L, [place] % (Auto) 10.0, Eos % (Auto) 0.1, Baso % (Auto) 0.2, Absolute Neuts (auto) 10.0 H, Absolute Lymphs (auto) 1.87, Nucleated RBC % 0, PT 18.6 H, INR 1.5, APTT 36.7 H, Sodium 138, Potassium 3.8, Chloride 103, Carbon Dioxide 26.0, Anion Gap 8, BUN 24 H, Creatinine 1.39 H, Est GFR (MDRD) Af Amer 65, Est GFR (MDRD) Non-Af 54 L, BUN/Creatinine Ratio 17.3, Glucose 81, Lactic Acid 1.5, Calcium 9.1, Magnesium 2.1, Total Bilirubin 0.50, AST 29, ALT 34, Alkaline Phosphatase 97, Total Protein 8.3 H, Albumin 2.2 L, Globulin 6.1 H, A lbumin/Globulin Ratio 0.4 L 01/04/25 10:55: Urine Color Yellow, Urine Clarity Sl. Cloudy, Urine pH 6.0, Ur Specific [place] 1.015, Urine Protein 100 H, Urine Glucose (UA) Normal, Urine Ketones 15 H, Urine Occult Blood 250 H, Urine Nitrite Negative, Urine Bilirubin Negative, Urine Urobilinogen 1 H, Ur Leukocyte Esterase 25 H, Urine RBC 25-50 SEEN, Urine WBC 0-5 SEEN, Ur Squamous Epith Cells 0 SEEN, Amorphous Sediment 1+ URATE, Urine Bacteria 0 SEEN, Hyaline Casts 0-5 SEEN, Fine Granular Casts 0-5 SEEN, Coarse Granular Casts 0-5 SEEN, Urine Mucus 0 SEEN 01/05/25 : WBC 12.4 H, RBC 3.02 L, Hgb 8.5 L, Hct 27.4 L, MCV 90.7, MCH 28.1, M CHC 31.0 L, RDW Std Deviation 45.2 H, RDW Coeff of Whit 13.8, Plt Count 256, MPV 10.1, Immature Gran % (Auto) 0.800, Neut % (Auto) 84.6 H, Lymph % (Auto) 7.7 L, [place] % (Auto) 6.7, Eos % (Auto) 0.0, Baso % (Auto) 0.2, Absolute Neuts (auto) 10.5 H, Absolute Lymphs (auto) 0.96, Nucleated RBC % 0, Sodium 140, Potassium 3.9, Chloride 110 H, Carbon Dioxide 24.0, Anion Gap 6, BUN 27 H, Creatinine 1.02, Estim Creat Clear Calc 78.33, Est GFR (MDRD) Af Amer 93, Est GFR (MDRD) Non-Af 77, BUN/Creatinine Ratio 26.5 H, Glucose 121 H, Calcium 8.2 L, TSH 10.900 H, Free T4 1.50 H Clinical Impression(s) from Imaging Studies Chest X-Ray 01/04/25 10:35 IMPRESSION: Progressive rounded pneumonia/mass in the right upper lobe as compared to prior study. Persistent pleural-parenchymal changes at the right lung base with an air-fluid level suggestive of possible either necrosis or cavitation in the right lower lobe. Reading Location: [id number] Charges/Coding Visit Charges Inpatient E&M: 81493 Subs Hosp L3
--- NOTE | 2025-01-05 08:00 | EX.PCM.CONCC ---
Assessment & Plan Assessment/Plan (1) SOB (shortness of breath): PLAN: Plan RECOMMENDATIONS: 1. Continue supplemental oxygen to maintain saturations at or above 90%. 2. Start scheduled bronchodilator therapy. 3. Will defer antimicrobial management to infectious diseases. 4. Will proceed with bronchoscopy with BAL. 5. Perform walking oximetry study prior to consideration for discharge home. 6. As per my previous hospital recommendations, the patient needs to be scheduled in the pulmonary medicine office within 2 weeks of his discharge from the hospital. IMPRESSIONS: 1. Shortness of breath While there was initial concern at the time of his admission for possible progression of his previously noted pneumonia, I do believe that the findings noted on chest imaging are likely the sequelae of his prior pneumonia and not progression. While the patient did report subjective fevers earlier this week, he is currently afebrile. He does not endorse any sputum production. The patient was treated during his last hospitalization for influenza and pneumococcal pneumonia. I recommended, at that time, that repeat imaging be completed 6 to 8 weeks. However, a CT scan of the chest was completed a near 10 days later. I would not anticipate that the pneumonia would be completely resolved on CT imaging only 10 days later. Rather, I do believe that the patient's shortness of breath, is likely secondary to the fact that he likely has underlying obstructive lung disease and needs to be on some form of bronchodilator therapy. Hence, the reason that I recommended that he follow-up in the pulmonary medicine office after his last discharge from the hospital. However, it does not appear that an appointment was ever made for the patient. At this time, I will defer any antimicrobial management to infectious diseases. Given that the patient was readmitted to the hospital under the aforementioned circumstances, we will proceed with bronchoscopy with BAL later this morning. 2. Valvular heart disease/paroxysmal atrial fibrillation/hypothyroidism/hypertension/chronic tobacco dependency Complicates care, management, recovery and prognosis. Continue Synthroid as prescribed. Smoking cessation is highly advisable. This note was generated with [employer] software. It may contain incorrect words, spelling, and punctuation that were not noted in checking the note before signing. HPI Consult Data Date of Consult: 01/05/25 HPI Narrative Reason for Consultation: Pneumonia HPI Narrative: The patient is a 69-year-old male, with a history as outlined below, who presented to the emergency department on February 20 with shortness of breath. The patient was just discharged from the hospital on December 26 after having been admitted for 9 days with acute hypoxemic respiratory failure related to acute influenza A infection coupled with superimposed pneumococcal pneumonia. The patient was also noted to likely have a component of obstructive lung disease, given his extensive tobacco abuse history. It was recommended that he follow-up in our pulmonary office after discharge, which never appears to have been scheduled. During his inpatient hospitalization, the patient completed a treatment course of antimicrobials for his pneumococcal pneumonia along with a treatment course of Tamiflu. At discharge, the patient required 3 L/min of oxygen at rest and 6 L/min with exertion. The patient is not on any long-acting bronchodilators at his baseline. He reported that he last had a subjective fever on January 01. He denies the presence of a cough or sputum production. On January 01, the patient was evaluated in the emergency department with shortness of breath. CT imaging the chest was completed at that time and demonstrated bilateral airspace consolidations, right greater than left. A small right pleural effusion and moderate pericardial effusion were also noted. The imaging study of the chest actually looks somewhat improved from that completed on December 18. In the ED, the patient was noted to have a temperature of 100.5 ?F, but only on 1 occasion. He was subsequently discharged home on cefdinir. On presentation to the emergency department on this occasion, the patient was initially noted to be afebrile and hemodynamically stable. The patient had a documented Tmax of 99.9 ?F yesterday afternoon. Laboratory evaluation was notable for a white blood cell count of 13,000. Chemistry profile was notable for a creatinine of 1.39. Lactate was within normal limits. Although the patient's chest x-ray was read as progressive infiltrate in the right upper lobe, the actual amount of infiltrate does not appear markedly different from the chest imaging completed on January 01, on my review. The patient was again restarted on broad-spectrum antimicrobials and admitted to the hospital once again. [facility] Medical History Acute hypoxemic respiratory failure JOSÉ MANUEL (acute kidney injury) Hypoxia Influenza A Tobacco user History of syncope Dyslipidemia Hypertension Home Medications ?Medication ?Instructions ?Recorded ?Last Taken ?Type amlodipine 5 mg tablet 5 mg PO DAILY #30 tabs 12/26/24 01/03/25 Rx apixaban 5 mg tablet (Eliquis) 5 mg PO BID #60 tabs 12/26/24 01/03/25 Rx levothyroxine 137 mcg tablet 137 mcg PO DAILY@0600 #30 tabs 12/26/24 01/04/25 Rx metoprolol tartrate 25 mg tablet 25 mg PO BID #60 tabs 12/26/24 01/03/25 Rx albuterol sulfate 90 mcg/actuation 2 puff inhalation 4X/DAY PRN 01/01/25 Unknown History aerosol inhaler shortness of breath or wheezing cefdinir 300 mg capsule 300 mg PO Q12H #20 caps 01/01/25 01/04/25 Rx vitamins A,C,U-kuoi-dhncye 2,148 1 tab PO DAILY 01/01/25 01/03/25 History mcg-113 mg-45 mg-17.4 mg tablet (Eye Multivitamin) acetaminophen 500 mg tablet 1,000 mg PO Q6H PRN fever 01/04/25 01/04/25 History (Tylenol Extra Strength) Allergy/AdvReac Type Severity Reaction Status Date / Time Penicillins Allergy Unknown Verified 01/04/25 09:01 Zgrjdtx-WZQ-TpX Reductase Allergy Other Verified 01/04/25 09:01 Inhibitor (Pvkrkiw-Evi-Ahx Reductase Inhibitor) Social History Smoking Status: Current every day smoker tobacco type: cigarettes ROS ROS Narrative 10 systems were reviewed with pertinent positives as noted in the HPI above. Physical Exam Const alert, oriented x3 and no apparent distress General Appearance: cooperative HEENT normocephalic, head/scalp atraumatic and moist oral mucous membranes Eyes PERRL, EOMs intact bilaterally and conjunctivae normal Neck supple General: trachea midline Chest inspection of chest normal Resp normal respiratory effort Auscultation: rales right; Negative for rhonchi or wheezes Cardio regular rate and regular rhythm GI normal to inspection, nondistended, normoactive bowel sounds Extremity no clubbing, cyanosis or edema Skin no rashes or lesions noted Neuro CN's II-XII intact bilaterally, moves all extremities and no focal motor deficits Psych cooperative and affect normal Lab / Micro Data 01/05/25 Unknown 01/05/25 Unknown Labs: Laboratory Results - last 24 hr 01/04/25 10:00: WBC 13.3 H, RBC 3.16 L, Hgb 9.1 L, Hct 28.9 L, MCV 91.5, MCH 28.8, MCHC 31.5 L, RDW Std Deviation 47.0 H, RDW Coeff of Whit 13.8, Plt Count 275, MPV 10.3, Immature Gran % (Auto) 0.500, Neut % (Auto) 75.1 H, Lymph % (Auto) 14.1 L, [place] % (Auto) 10.0, Eos % (Auto) 0.1, Baso % (Auto) 0.2, Absolute Neuts (auto) 10.0 H, Absolute Lymphs (auto) 1.87, Nucleated RBC % 0, PT 18.6 H, INR 1.5, APTT 36.7 H, Sodium 138, Potassium 3.8, Chloride 103, Carbon Dioxide 26.0, Anion Gap 8, BUN 24 H, Creatinine 1.39 H, Est GFR (MDRD) Af Amer 65, Est GFR (MDRD) Non-Af 54 L, BUN/Creatinine Ratio 17.3, Glucose 81, Lactic Acid 1.5, Calcium 9.1, Magnesium 2.1, Total Bilirubin 0.50, AST 29, ALT 34, Alkaline Phosphatase 97, Total Protein 8.3 H, Albumin 2.2 L, Globulin 6.1 H, Albumin/Globulin Ratio 0.4 L 01/04/25 10:55: Urine Color Yellow, Urine Clarity Sl. Cloudy, Urine pH 6.0, Ur Specific [place] 1.015, Urine Protein 100 H, Urine Glucose (UA) Normal, Urine Ketones 15 H, Urine Occult Blood 250 H, Urine Nitrite Negative, Urine Bilirubin Negative, Urine Urobilinogen 1 H, Ur Leukocyte Esterase 25 H, Urine RBC 25-50 SEEN, Urine WBC 0-5 SEEN, Ur Squamous Epith Cells 0 SEEN, Amorphous Sediment 1+ URATE, Urine Bacteria 0 SEEN, Hyaline Casts 0-5 SEEN, Fine Granular Casts 0-5 SEEN, Coarse Granular Casts 0-5 SEEN, Urine Mucus 0 SEEN 01/05/25 : WBC 12.4 H, RBC 3.02 L, Hgb 8.5 L, Hct 27.4 L, MCV 90.7, MCH 28.1, MCHC 31.0 L, RDW Std Deviation 45.2 H, RDW Coeff of Whit 13.8, Plt Count 256, MPV 10.1, Immature Gran % (Auto) 0.800, Neut % (Auto) 84.6 H, Lymph % (Auto) 7.7 L, [place] % (Auto) 6.7, Eos % (Auto) 0.0, Baso % (Auto) 0.2, Absolute Neuts (auto) 10.5 H, Absolute Lymphs (auto) 0.96, Nucleated RBC % 0, Sodium 140, Potassium 3.9, Chloride 110 H, Carbon Dioxide 24.0, Anion Gap 6, BUN 27 H, Creatinine 1.02, Estim Creat Clear Calc 78.33, Est GFR (MDRD) Af Amer 93, Est GFR (MDRD) Non-Af 77, BUN/Creatinine Ratio 26.5 H, Glucose 121 H, Calcium 8.2 L, TSH 10.900 H, Free T4 1.50 H Micro: Microbiology 01/04/25 14:15 Mucosa - Nasopharyngeal Respiratory Panel (PCR) - Final 01/04/25 10:24 Mucosa - Nose SARS-CoV-2, Influenza & RSV (PCR) - Final Rhythm Strip Rhythm Strip: Sinus Tach Rate: 105 Ectopy: None Imaging Radiology Impression Chest X-Ray 01/04/25 10:35 IMPRESSION: Progressive rounded pneumonia/mass in the right upper lobe as compared to prior study. Persistent pleural-parenchymal changes at the right lung base with an air-fluid level suggestive of possible either necrosis or cavitation in the right lower lobe. Reading Location: [id number] Charges/Coding Visit Charges Inpatient E&M: 11595 Init Hosp L3
--- NOTE | 2025-01-05 09:15 | PCM.PRE.AN2 ---
ASA Classification* ASA Classification ASA Classification: 3 Assessment & Plan Anesthesia* Anesthesia Assessment Anesthesia Assessment: Discussed sedation and/or anesthesia options, risks, benefits, and alternatives with patient/parents/legal guardian/POA. Questions invited. The patient/parents/legal guardian/POA seems to understand and agrees to proceed with anesthesia plan. Reviewed the physical assessment, medical history, allergy history and patient home medications list prior to surgery/procedure/anesthetic and documented any changes. Performed airway and anesthesia risk assessments. Anesthesia Type Anesthesia Type: General History Source History Obtained from:: Patient and Chart Anesthesia Focused Assessment* Temperature: 98.2 F Pulse Rate: 75 Blood Pressure: 131/69 Respiratory Rate: 16 Pulse Ox: 96 Oxygen Delivery Method: Nasal Cannula (On home O2 (3L with rest and 6L with activity)) Oxygen Flow Rate (L/min): 2 Airway Assessment Mouth opens: 2 cm Mallampati Score: II Teeth Condition: Dentures and Full Neck Range of motion (ROM): Limited ROM Focused Labs Anesthesia Preop lab: CBC WBC 12.4 K/mm3 (4.4-11.0) H 01/05/25 23:59 01/05/25 RBC 3.02 M/mm3 (4.6-6.2) L 01/05/25 23:59 01/05/25 Hgb 8.5 g/dL (13.0-16.5) L 01/05/25 23:59 01/05/25 Hct 27.4 % (40-54) L 01/05/25 23:59 01/05/25 Plt Count 256 K/mm3 (150-450) 01/05/25 23:59 01/05/25 CHEMISTRY Potassium 3.9 mmol/L (3.5-5.1) 01/05/25 23:59 01/05/25 Sodium 140 mmol/L (136-145) 01/05/25 23:59 01/05/25 Magnesium 2.1 mg/dL (1.6-2.6) 01/04/25 10:00 01/04/25 Phosphorus 3.5 mg/dL (2.5-4.9) 12/23/24 05:29 12/23/24 BUN 27 mg/dL (7-18) H 01/05/25 23:59 01/05/25 Creatinine 1.02 mg/dL (0.70-1.30) 01/05/25 23:59 01/05/25 Glucose 121 mg/dL (74-106) H 01/05/25 23:59 01/05/25 TSH 10.900 uIU/mL (0.358-3.740) H 01/05/25 23:59 01/05/25 COAG PT 18.6 SECONDS (11.7-14.9) H 01/04/25 10:00 01/04/25 Pre-Assessment Diagnosis/Proposed Procedure Planned Operative Procedure(s): Bronchoscopy Anesthesia History Anesthesia History - car customizer: Anesthesia History - car customizer Hx Hospitalization Any Problems With Anesthesia Cholinesterase deficiency You/Your Family Experience fever (hyperthermia) with Relationship Recent Exposure to Contagious Disease Does patient have nerve stimulator Patient instructed to have device shut off --Does patient have Pacemaker or ICD? When Was Last Pacemaker Check QUESTION #4 FULL TEXT: You/Your Family Experience fever (hyperthermia) with Anesthesia Last Oral Intake Last Oral intake: Last Oral Intake NPO since Meds taken in AM with sips of water? Meds patient instructed to take am of surgery PONV PONV - car customizer: PONV - car customizer Female HX of Motion Sickness HX of N/V After Surgery Non-Smoker Duration of Surgery greater than 60 minutes Number of Risk Factors PONV Score Height & Weight Height & Weight: Anesthesia: Height & Weight Height 6 ft 1 in 01/04/25 13:42 Weight: 82.9 kg 01/04/25 13:42 Body Mass Index (BMI) 24.0 01/04/25 13:42 Respiratory Assessment Respiratory Assessment - car customizer: Respiratory Tract Infection Hx - car customizer Hx Respiratory Tract Infection STOP Sleep Apnea STOP Sleep Apnea - car customizer: STOP Sleep Apnea - car customizer Hx Hypertension Yes 01/04/25 14:14 Hx Sleep Apnea No 01/04/25 14:14 CPAP BIPAP Do you snore loudly (louder Yes 01/04/25 14:14 than talking or can be heard Do you often feel tired/ Yes 01/04/25 14:14 fatigued/ sleepy during daytime? Has anyone observed you stop No 01/04/25 14:14 breathing during sleep? STOP Results Positive 01/04/25 14:14 QUESTION #5 FULL TEXT : Do you snore loudly (louder than talking or can be heard through closed doors)? 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 Specify any problems Hx of Preganancy in last 3 N/A 01/04/25 14:14 Months Nurse Filling Out Transfusion AWHIMS 01/04/25 14:14 & Questions: Date: 01/04/25 01/04/25 14:14 Time: 14:37 01/04/25 14:14 Patient unable to answer at this time (ie. confused, unrespo /Reproduction History /Reproductive History - car customizer: /Reproductive Hx- car customizer Hx Now Gestational Age (in weeks): EDC: Hx Hx Para Hx Section SAB Active Medications Active Medications: Current Medications Generic Name Dose Route Start Last Admin Trade Name Freq PRN Reason Stop Dose Admin Acetaminophen 1,000 mg 01/04/25 14:14 01/04/25 15:13 Acetaminophen 500 Mg Tablet PO 1,000 mg Q6H PRN Administration fever Albuterol/Ipratropium 3 ml 01/04/25 16:07 01/04/25 18:58 Ipratropium/Albuterol Sulfate 3 Ml Ampul.Neb INHALATION 3 ml Q4HWA.RT PRN Administration SHORTNESS OF BREATH Albuterol/Ipratropium 3 ml 01/05/25 08:30 Ipratropium/Albuterol Sulfate 3 Ml Ampul.Neb INHALATION Q4HWA.RT RITA Apixaban 5 mg 01/04/25 22:00 01/04/25 21:21 Apixaban 5 Mg Tablet PO 5 mg BID RITA Administration Guaifenesin 2 tablet 01/04/25 13:30 01/04/25 21:21 Guaifenesin/D-Methorphan Tab.Sr.12h PO 2 tablet BID RITA Administration Vancomycin IV-PHARMACY TO DOSE 500 mls @ 250 mls/hr 01/04/25 12:00 1 each/ Sodium Chloride IV PRN PRN RX TO DOSE Protocol Cefepime HCl 1 gm/ Sodium 50 mls @ 100 mls/hr 01/04/25 22:00 01/05/25 05:39 Chloride IV Infused Q8 RITA Infusion Potassium Chloride/Sodium Chloride 20 meq in 1,000 mls @ 75 mls/hr 01/04/25 13:30 01/05/25 01:08 IV 01/05/25 16:09 75 mls/hr .[id number] RITA Administration Protocol Metronidazole 500 mg in 100 mls @ 100 mls/hr 01/04/25 22:00 01/05/25 06:10 Flagyl IV Infused Q8 RITA Infusion Sodium Chloride 100 mls @ 15 mls/hr 01/04/25 14:25 IV .Q6H40M PRN Saline Flush Sodium Chloride 100 mls @ 15 mls/hr 01/04/25 14:25 IV .Q6H40M PRN Additional IVPB Infusion Vancomycin HCl 1,250 mg/ 275 mls @ 167 mls/hr 01/05/25 10:00 Sodium Chloride IV Q12H [facility] Influenza Virus Vaccine 180 mcg 01/05/25 10:00 Flu Vaccine High Dose Tv 24-25 180 Mcg/0.5 Ml Syringe IM 01/05/25 10:01 .ONCE ONE Metoprolol Tartrate 5 mg 01/04/25 16:04 Metoprolol Tartrate 5 Mg/5 Ml Vial IV Q6 PRN HR>120/m Protocol Metoprolol Tartrate 25 mg 01/05/25 10:00 Metoprolol Tartrate 25 Mg Tablet PO BID [facility] Protocol Prochlorperazine Edisylate 5 mg 01/04/25 13:30 Prochlorperazine 10 Mg/2 Ml Vial IV Q4H PRN PRN Breakthrough Nausea/Vomiting Senna/Docusate Sodium 2 tablet 01/04/25 11:30 Senna/Docusate Sodium 1 Tablet PO BID PRN PRN Constipation Sodium Chloride 10 - 40 ml 01/04/25 14:25 0.9% Saline Lock 10 Ml Syringe IV UD PRN SALINE FLUSH Vancomycin Protocol 1 lab 01/06/25 07:30 Vancomycin Trough/Random Due 01/06/25 11:30 DAILY [facility] Medical History Acute hypoxemic respiratory failure JOSÉ MANUEL (acute kidney injury) Hypoxia Influenza A Tobacco user History of syncope Dyslipidemia Hypertension Home Medications ?Medication ?Instructions ?Recorded ?Last Taken ?Type amlodipine 5 mg tablet 5 mg PO DAILY #30 tabs 12/26/24 01/03/25 Rx apixaban 5 mg tablet (Eliquis) 5 mg PO BID #60 tabs 12/26/24 01/03/25 Rx levothyroxine 137 mcg tablet 137 mcg PO DAILY@0600 #30 tabs 12/26/24 01/04/25 Rx metoprolol tartrate 25 mg tablet 25 mg PO BID #60 tabs 12/26/24 01/03/25 Rx albuterol sulfate 90 mcg/actuation 2 puff inhalation 4X/DAY PRN 01/01/25 Unknown History aerosol inhaler shortness of breath or wheezing cefdinir 300 mg capsule 300 mg PO Q12H #20 caps 01/01/25 01/04/25 Rx vitamins A,C,I-ilyt-aolmpj 2,148 1 tab PO DAILY 01/01/25 01/03/25 History mcg-113 mg-45 mg-17.4 mg tablet (Eye Multivitamin) acetaminophen 500 mg tablet 1,000 mg PO Q6H PRN fever 01/04/25 01/04/25 History (Tylenol Extra Strength) Allergy/AdvReac Type Severity Reaction Status Date / Time Penicillins Allergy Unknown Verified 01/04/25 09:01 Vzvdcvd-TUE-RpI Reductase Allergy Other Verified 01/04/25 09:01 Inhibitor (Zwhzods-Rfz-Iim Reductase Inhibitor) Social History Smoking Status: Current every day smoker tobacco type: cigarettes Review of Systems (Anesthesia) ROS Narrative System reviewed and no additional complaints, except as documented.
[2025-01-05] MEDS: Lidocaine Jelly 2% 20 ML Syringe (URO-JET) 1 APPLIC (10:14)
[2025-01-05] MEDS: Lidocaine 2% (5ml sdv) 5 ML VIAL.MPF (10:14)
--- NOTE | 2025-01-05 10:17 | PCM.POST.ANE ---
Anesthesia: Postop Eval I Current Vital Signs Temperature: 97 F Pulse Rate: 98 Blood Pressure: 136/107 Respiratory Rate: 20 Pulse Ox: 92 Oxygen Delivery Method: Nasal Cannula Oxygen Flow Rate (L/min): 4 Assessment Airway patent: Yes Spontaneous unlabored respirations: Yes Mental status: Awake and Calm nausea: No Vomiting: No Anesthesia Complication: No Fluid Hydration Crystalloid volume administer (ml): 20 Total IV fluid infused: 20 Progress Note Anesthesia document: Postop Eval 1 completed: Yes
--- NOTE | 2025-01-05 10:19 | OP.BRONCH_ITS ---
Patient Name: Nir Shah Procedure Date: 01/05/2025 9:52 AM Date of : 1955 Age: 69 Procedure: Bronchoscopy Indications: Abnormal CT scan of chest Providers: Randall Isbell MD Medicines: See the Anesthesia note for documentation of the administered medications Complications: No immediate complications Procedure: Pre-Anesthesia Assessment: - A History and Physical has been performed. Patient meds and allergies have been reviewed. The risks and benefits of the procedure and the sedation options and risks were discussed with the patient. All questions were answered and informed consent was obtained. Patient identification and proposed procedure were verified prior to the procedure by the physician and the nurse in the procedure room. Mental Status Examination: alert and oriented. Airway Examination: normal oropharyngeal airway. Respiratory Examination: clear to auscultation. CV Examination: normal. ASA Grade Assessment: II - A patient with mild systemic disease. After reviewing the risks and benefits, the patient was deemed in satisfactory condition to undergo the procedure. The anesthesia plan was to use monitored anesthesia care (MAC). Immediately prior to administration of medications, the patient was re-assessed for adequacy to receive sedatives. The heart rate, respiratory rate, oxygen saturations, blood pressure, adequacy of pulmonary ventilation, and response to care were monitored throughout the procedure. The physical status of the patient was re-assessed after the procedure. After I obtained informed consent, the scope was passed under direct vision. Throughout the procedure, the patient's blood pressure, pulse, and oxygen saturations were monitored continuously. The bronchoscope was introduced through the mouth and advanced to the tracheobronchial tree. The procedure was accomplished without difficulty. The patient tolerated the procedure well. Findings: The oropharynx appears normal. The larynx appears normal. The vocal cords appear normal. The subglottic space is normal. The trachea is of normal caliber. The osman is sharp. The tracheobronchial tree was examined to at least the first subsegmental level. Bronchial mucosa and anatomy are normal; there are no endobronchial lesions, and no secretions. The bronchoscope was advanced until wedged at the desired location for bronchoalveolar lavage. BAL was performed in the right lower lobe of the lung and sent for cell count, bacterial culture, viral smears & culture, and fungal & AFB analysis and cytology. 60 mL of fluid were instilled. 30 mL were returned. The return was cloudy. There were no mucoid plugs in the return fluid. Impression: - Abnormal CT scan of chest - The airway examination was normal. - Bronchoalveolar lavage was performed. Recommendation: - Await BAL results. Procedure Code(s): --- Professional --- 26173, Bronchoscopy, rigid or flexible, including fluoroscopic guidance, when performed; with bronchial alveolar lavage Diagnosis Code(s): --- Professional --- R93.89, Abnormal findings on diagnostic imaging of other specified body structures CPT copyright 2021 [employer]. All rights reserved. The codes documented in this report are preliminary and upon skills instructor review may be revised to meet current compliance requirements. DO Randall Cook MD 01/05/2025 10:19:13 AM This report has been signed electronically. Number of Addenda: 0 Note Initiated On: 01/05/2025 9:52 AM
[2025-01-05] MEDS: APIXABAN 5 MG TABLET PO ×2 (11:44→21:08)
[2025-01-05] MEDS: guaiFENesin/D-Methorphan TAB.SR.12H 2 TABLET PO ×2 (11:44→21:09)
[2025-01-05] MEDS: Metoprolol Tartrate 25 MG Tablet PO ×2 (11:47→21:09)
[2025-01-05] MEDS: FLU VACCINE **HIGH DOSE** TV 24-25 180 MCG/0.5 ML SYRINGE IM (11:47)
[2025-01-05] MEDS: Vancomycin HCl 1,250 MG in 0.9% Normal Saline (250mL Bag) 250 ML 167 MG IV ×2 (11:49→22:04)
--- NOTE | 2025-01-05 11:52 | CASEMGMT ---
Addendum entered by Conor Fong 01/05/25 11:56: The f/u appt is with Dr. Randall Isbell. DO updated. Original Note: Readmission Note: Index: 12/17-12/26/24. Dx: Influenza A, Severe JOSÉ MANUEL, RF, Pneumonia Readmission: 01/04/25. Dx: Hypoxia, Worsening Pneumonia Per chart review and ICU rounds, patient lives at home with his and is independent. From index admission, the patient discharged home with his with new oxygen and new prescriptions. Patient was advised to follow up with [facility] within two weeks of discharge. RN CM to patient room at this time. Patient at bedside. Patient and patient state that they were able to get all of the oxygen equipment set up appropriately and wear it as ordered. Patient states that he has a pulse oximeter. Patient and patient also states that they were able to get his new prescriptions for Eliquis and other medications and take them as ordered. Patient states that she attempted to create a follow-up appointment with the statistician mathematical but that the earliest that the pulmonary group could get the patient in was not until June. The patient was then advised to follow up with [facility] pulmonary, Corrine Isbell. The patient stated that she was working on getting an appointment for early January through [facility]. However, the patient re-presents to [facility] with shortness of breath, high-grade fever of 103?F, and worsening pneumonia. This RN CM called [facility] at this time who states that they are able to get the patient in on January 18 at 10:45. Patient and patient updated and discharge info updated. Moving forward, the patient and patient state that they plan to return home at the time of discharge and deny any further needs including home healthcare, outpatient therapy, or community care network. Patient states that she will be able to bring the patient's oxygen equipment in at the time of discharge. The patient is ordered to wear 3 L continuous and 6 L with ambulation. Patient and patient deny any further questions or concerns at this time. PLAN: Home with pt and continue home oxygen and to f/u with [facility].
--- NOTE | 2025-01-05 12:12 | POSTOPAN2_ITS ---
Anesthesia Postop Eval I Sum Postop Eval Completion status Anesthesia document: Postop Eval 1 completed: Yes Anesthesia Postop Eval I Summary Anesthesia Postop Eval I Summary: Anesthesia Postop Eval I: Assessment Summary Airway patent Yes 01/05/25 10:18 LIME [email or web address].MDOT Spontaneous unlabored Yes 01/05/25 10:18 LIME PULLER.MDOT respirations Mental status Awake,Calm 01/05/25 10:18 LIME PULLER.MDOT nausea No 01/05/25 10:18 LIME PULLER.MDOT Vomiting No 01/05/25 10:18 LIME PULLER.MDOT Anesthesia Postop Eval I: Fluid Summary Crystalloid volume administer 20 01/05/25 10:18 LIME PULLER.MDOT (ml) Colloids volume administered ( ml) Blood Product volume administered (ml) Total IV fluid infused 20 01/05/25 10:18 LIME PULLER.MDOT Anesthesia Postop Eval I: Summary Notes Anesthesia Complication No 01/05/25 10:18 LIME PULLER.MDOT Anesthesia Complication Comment: Post-operative progress note Anesthesia: Postop Eval II Evaluation Mental status: Awake and Calm Pain Level: 0 nausea: No Vomiting: No
--- NOTE | 2025-01-05 12:12 | PCM.POSTANE2 ---
Anesthesia Postop Eval I Sum Postop Eval Completion status Anesthesia document: Postop Eval 1 completed: Yes Anesthesia Postop Eval I Summary Anesthesia Postop Eval I Summary: Anesthesia Postop Eval I: Assessment Summary Airway patent Yes 01/05/25 10:18 HEDIS [email or web address] Spontaneous unlabored Yes 01/05/25 10:18 HEDIS NURSE.MDOT respirations Mental status Awake,Calm 01/05/25 10:18 HEDIS NURSE.MDOT nausea No 01/05/25 10:18 HEDIS NURSE.MDOT Vomiting No 01/05/25 10:18 HEDIS [email or web address] Anesthesia Postop Eval I: Fluid Summary Crystalloid volume administer 20 01/05/25 10:18 HEDIS NURSE.MDOT (ml) Colloids volume administered ( ml) Blood Product volume administered (ml) Total IV fluid infused 20 01/05/25 10:18 HEDIS NURSE.MDOT Anesthesia Postop Eval I: Summary Notes Anesthesia Complication No 01/05/25 10:18 HEDIS NURSE.MDOT Anesthesia Complication Comment: Post-operative progress note Anesthesia: Postop Eval II Evaluation Mental status: Awake and Calm Pain Level: 0 nausea: No Vomiting: No
[2025-01-05 13:00] LABS: Cytology, Body Fluid / CSF SEE PATHOLOGY REPORT
[2025-01-05 14:30] LABS: Source- Body Fluid BRONCHIAL LAVAGE
[2025-01-05 14:31] LABS: Appearance/Body Fluid SL CLDY; Color/Body Fluid PINK
[2025-01-05 15:32] LABS: Red Cell Count/Body Fluid 550 /mm3; White Blood Count/Body Fluid 3140 /mm3
[2025-01-05 15:40] LABS: Body Fluid QC Type(s) BF1Q; Neutrophil (Segs) 83 %; Other Cell Type/BF 17 %
[2025-01-05] MEDS: Ipratropium/Albuterol Sulfate 3 ML AMPUL.NEB INHALATION (19:10)
[2025-01-06] VITALS (14 sets, daily range): BP systolic 122–149; BP diastolic 69–81; PULSE 80–98; RESP 18–20; TEMP 36.4–37.5; O2SAT 89–96
[2025-01-06] MEDS: Cefepime HCl 1 GM in 0.9% Normal Saline (50mL MB+) 50 ML IV ×3 (05:13→21:46)
[2025-01-06 05:18] LABS: Absolute Lymphocyte Count 2.08 X10^3/uL (0.83-4.51); Absolute Neutrophil Count 9.4 X10^3/uL (2.0-7.7); Basophil# 0.04 X10^3/uL; Basophil% 0.3 % (0-1); Eosinophil# 0.05 X10^3/uL; Eosinophils% 0.4 % (0-5); Hematocrit 25.9 % (40-54); Hemoglobin 8.4 g/dL (13.0-16.5); Lymphocyte # 2.08 X10^3/ul (0.83-4.51); Lymphocyte % 16.3 % (19-41); Mean Corp Hgb Conc 32.4 g/dL (32-36); Mean Corpuscular Volume 89.3 fL (80-94); Mean Platelet Vol. 10.1 fl (6.2-12.0); Monocyte# 1.06 X10^3/uL; Monocyte% 8.3 % (0-10); NRBC Flagged by Analyzer 0 % (0-5); Neutrophil # 9.39 X10^3/uL (2.7-7.7); Neutrophil % 73.3 % (47-70); Platelet Count 297 K/mm3 (150-450); RBC Distribution Width CV 14.1 % (11.6-14.6); RBC Distribution Width SD 46.1 fl (35.1-43.9); White Blood Count 12.8 K/mm3 (4.4-11.0)
[2025-01-06 05:35] LABS: Anion Gap 4 (5-15); BUN 34 mg/dL (7-18); BUN/Creat Ratio 35.9 RATIO (10-20); Calcium,Total 8.5 mg/dL (8.5-10.1); Chloride 113 mmol/L (98-107); Creatinine, Serum 0.95 mg/dL (0.70-1.30); EST Glomerular Filtration Rate 84 mL/min (>60); Est Glom Filt Rate - Afr Amer 102 mL/min (>60); Estimated Creatinine Clearance 84.11 ml/min; Glucose 90 mg/dL (74-106); Potassium 3.9 mmol/L (3.5-5.1); Sodium Level 141 mmol/L (136-145)
[2025-01-06] MEDS: metroNIDAZOLE 500 MG/100 ML BAG 100 MG IV ×3 (05:48→21:46)
[2025-01-06] MEDS: Ipratropium/Albuterol Sulfate 3 ML AMPUL.NEB INHALATION ×3 (07:59→15:20)
[2025-01-06] MEDS: guaiFENesin/D-Methorphan TAB.SR.12H 2 TABLET PO ×2 (09:51→21:47)
[2025-01-06] MEDS: APIXABAN 5 MG TABLET PO ×2 (09:51→21:46)
[2025-01-06] MEDS: Metoprolol Tartrate 25 MG Tablet PO ×2 (09:51→21:46)
[2025-01-06 10:38] LABS: Vancomycin, Trough Level 20.1 ug/mL (5.0-15.0)
--- NOTE | 2025-01-06 10:47 | PCM.RX.CS ---
Consult Antibiotic Management Pharmacy has been consulted to manage selected antibiotic: Vancomycin Type of Intervention Type of Consult: Follow-up Prior Doses of Antibiotics Prior Doses of Antibiotics Received/Current Regimen: current dose is vanc 1250mg IV q12h Labs Labs: Sodium 141 mmol/L (136-145) 01/06/25 04:41 Potassium 3.9 mmol/L (3.5-5.1) 01/06/25 04:41 Chloride 113 mmol/L (98-107) H 01/06/25 04:41 Carbon Dioxide 24.0 mmol/L (21.0-32.0) 01/06/25 04:41 Anion Gap 4 (5-15) L 01/06/25 04:41 BUN 34 mg/dL (7-18) H 01/06/25 04:41 Creatinine 0.95 mg/dL (0.70-1.30) 01/06/25 04:41 Est GFR (MDRD) Af Amer 102 mL/min (>60) 01/06/25 04:41 Est GFR (MDRD) Non-Af 84 mL/min (>60) 01/06/25 04:41 BUN/Creatinine Ratio 35.9 RATIO (10-20) H 01/06/25 04:41 Glucose 90 mg/dL (74-106) 01/06/25 04:41 Vancomycin Trough 20.1 ug/mL (5.0-15.0) H 01/06/25 09:42 Microbiology Microbiology: Microbiology 01/04/25 10:55 Urine, Clean Catch Urine Culture - Final Culture exhibits no growth. 01/05/25 09:00 Urine, Clean Catch Legionella Antigen - Final 01/05/25 09:00 Urine, Clean Catch Streptococcus pneumoniae Antigen (M - Final 01/04/25 14:15 Mucosa - Nasopharyngeal Respiratory Panel (PCR) - Final 01/04/25 10:24 Mucosa - Nose SARS-CoV-2, Influenza & RSV (PCR) - Final Dosing Weight Weight used for dosin lb 12.211 oz Estimated Creatinine Clearance Estimated Creatinine Clearance: 84 ml/min Goal Trough Goal Trough: 15-20 mcg/mL Pharmacy Plan for Drug Dosing Pharmacy Plan for Drug Dosing: The vanc trough drawn at 09:42 today was 20.1. This is only slightly high so will wait a couple hours and restart at a decreased dose of 1000mg q12h. Check a trough before the 4th dose. Pharmacy Service will continue to monitor and adjust dosing as required. Follow-Up Labs Follow-Up Labs: Trough: Vancomycin Date/Time Labs Ordered Labs to be done on [date and time ordered]: 01/07/25 23:30
[2025-01-06] MEDS: Vancomycin IV 1,000 MG/200 ML BAG 200 MG IV ×2 (12:01→23:10)
[2025-01-06] MEDS: 0.9% Saline Lock 10 ML Syringe IV (13:13)
--- NOTE | 2025-01-06 14:07 | PN.HOSP_ITS ---
Reason for Visit Reason for Visit: Diagnoses Paroxysmal atrial fibrillation (01/04/25) Pneumonia, unspecified organism (01/04/25) Shortness of breath (01/04/25) Objective Data Objective Data Vital Signs: Vital Signs Temp Pulse Resp BP Pulse Ox O2 Del Method O2 Flow Rate 97.6 F L 89 20 H 122/69 H 92 Nasal Cannula 1 01/06/25 09:50 01/06/25 11:30 01/06/25 11:30 01/06/25 09:50 01/06/25 09:50 01/06/25 10:00 01/06/25 10:00 Oxygen Flow Rate (L/min) 1 Oxygen Delivery Method Nasal Cannula Weight: 182 lb 12.211 oz Body Mass Index (BMI) 24.0 Intake & Output: Intake and Output for Last 24 Hours 01/04/25 01/05/25 01/06/25 23:59 23:59 23:59 Intake Total 1890 / 2140 3517.5 / 3517.5 350 / 350 Output Total 1225 / 1225 400 / 400 Balance 1890 / 1590 2292.5 / 2292.5 -50 / -50 Lab / Micro Data 01/06/25 04:41 01/06/25 04:41 Labs: Laboratory Results - last 24 hr 01/05/25 : Fluid Source BRONCHIAL LAVAGE, Fluid Color PINK, Fluid Appearance SL CLDY, Fluid WBC 3140, Fluid RBC 550, Fluid Tot Cell Count TNP, Fluid Neutrophils 83, Fluid Other Cells 17, Fl Pathologist Comment May follow, Fluid Comment 2 Not Reportable 01/06/25 04:41: WBC 12.8 H, RBC 2.90 L, Hgb 8.4 L, Hct 25.9 L, MCV 89.3, MCH 29.0, MCHC 32.4, RDW Std Deviation 46.1 H, RDW Coeff of Whit 14.1, Plt Count 297, MPV 10.1, Immature Gran % (Auto) 1.400 H, Neut % (Auto) 73.3 H, Lymph % (Auto) 16.3 L, Evans % (Auto) 8.3, Eos % (Auto) 0.4, Baso % (Auto) 0.3, Absolute Neuts (auto) 9.4 H, Absolute Lymphs (auto) 2.08, Nucleated RBC % 0, Sodium 141, Potassium 3.9, Chloride 113 H, Carbon Dioxide 24.0, Anion Gap 4 L, BUN 34 H, Creatinine 0.95, Estim Creat Clear Calc 84.11, Est GFR (MDRD) Af Amer 102, Est GFR (MDRD) Non-Af 84, BUN/Creatinine Ratio 35.9 H, Glucose 90, Calcium 8.5 01/06/25 09:42: Vancomycin Trough 20.1 H Micro: Microbiology 01/04/25 10:27 Blood Culture (Wb) - Anticubital Right Blood Culture - Preliminary No growth in 48 hours. 01/04/25 10:00 Blood Culture (Wb) - Anticubital Left Blood Culture - Preliminary No growth in 48 hours. 01/05/25 Unknown Bronchial Lavage - Right Lower Lobe Gram Stain - Final 01/04/25 10:55 Urine, Clean Catch Urine Culture - Final Culture exhibits no growth. 01/05/25 09:00 Urine, Clean Catch Legionella Antigen - Final 01/05/25 09:00 Urine, Clean Catch Streptococcus pneumoniae Antigen (M - Final 01/04/25 14:15 Mucosa - Nasopharyngeal Respiratory Panel (PCR) - Final 01/04/25 10:24 Mucosa - Nose SARS-CoV-2, Influenza & RSV (PCR) - Final Rhythm Strip Rhythm Strip: Sinus Tach Rate: 105 Ectopy: None Physical Exam Narrative Seen and examined Patient did not had fever after admission in ICU. Currently on 2 L of oxygen. He had good sleep last night. Respiratory distress and shortness of breath much better. Physical exam General: Alert, Oriented x3, Cooperative HEENT: Atraumatic, PERRLA, EOMI, Normocephalic Oral: Oral mucosa dry no Gingival or Mucosal Lesions/ Ulcerations Neck: Supple, No JVD, Negative Carotid Bruits Chest wall/Lungs: Air entry diminished in in both lungs. Bilateral fine crepitations. Tachypnea resolved. RR 16 Cardiovascular: Sinus rhythm, normal S1, Normal S2, No M/G/R Abdomen: Bowel Sounds Present, Soft, Non Tender, Non-Distended : No dysuria. No renal angle tenderness. No suprapubic tenderness. Extremities: No edema, Capillary Refill Less than 3 Seconds Skin: No rashes, No breakdown Musculoskeletal: No Tenderness to Palpation of Joints or Extremities Neurological: Cranial nerves II-XII grossly intact, DTR 2+/4. No acute focal neurological deficit. Psych/Mental Status: Flat affect. Assessment & Plan Assessment/Plan (1) Bilateral pneumonia: (2) Paroxysmal atrial fibrillation with RVR: PLAN: Plan 61-year-old male admitted with high-grade fever, dyspnea at rest, hypoxia and chest and CT findings suggestive of bilateral multifocal pneumonia. Patient had full course of Tamiflu and antibiotic. 1. Bilateral multifocal/multi lobar pneumonia complicated with possibility of either necrosis or cavitation in right lower lobe: CT chest individually reviewed and shows thick consolidation/mass in right upper lobe and right lung base. CT also reported possible either necrosis or cavitation right lower lobe. Small right pleural effusion and trace left pleural effusion. With this finding, pick up truck driver is consulted. ID also consulted from ER for nonresolving pneumonia. Pneumonia workup ordered. Patient started on IV vancomycin and cefepime and Flagyl. Triple PCR for SARS-CoV-2, flu and RSV are negative. Lactic acid normal. Patient does not meet criteria for sepsis at this point of time. 01/05: Patient respiratory status and shortness of breath is much improved. On 2 L of oxygen. Supervisor Sample Preparation and ID to see the patient. Continue the above antibiotic 2. Continued nicotine use/smoking with possibility of undiagnosed COPD/emphysema: Patient started smoking cigarettes about a pack per day since teenage. Currently smokes 4 to 5 cigarettes. On nicotine patch offered. Possible undiagnosed pneumonia. Patient is being managed on scheduled bronchodilator, Mucinex, incentive spirometry and Pep. 3. Paroxysmal A-fib with RVR: Had transient A-fib in 2016 and then came back on past Wednesday. Probably precipitated by pneumonia. On metoprolol and Eliquis. 01/05: Heart rate is controlled. Converted to sinus rhythm. Continue home medication. 4. Possible CKD stage III: Patient had JOSÉ MANUEL during last admission and creatinine was 3.94 which improved to 1.12. Again increased to 1.39. Does not meet criteria for JOSÉ MANUEL. Monitor kidney function. Dr. Velazquez are in normal range. 01/05: BUN/creatinine 27/1.02. 5.. Hypothyroidism-patient is on Synthroid 01/05 TSH 10.9 high. Free T41.5. Usually TSH should be suppressed if it is from high dose of Synthroid but it is high. Continue holding Synthroid Living will/advanced directive/end of life care: Patient does not have living will or advanced directive. His present in the ED is the next of kin. After discussion of benefits/risks procedures involved with full code, DNR CC arrest and DNR CC, the patient opted for full code. Patient does want artificial life support including intubation, tube feed, ventilator and/chest compression, central venous catheter, vasopressor and DC shock if needed Total time spent in [id number] encounter in discussion of advanced directive 17 minutes. Microbiology Past 72 Hours 01/04/25 14:15 Mucosa - Nasopharyngeal Respiratory Panel (PCR) - Final 01/04/25 10:24 Mucosa - Nose SARS-CoV-2, Influenza & RSV (PCR) - Final Laboratory Results 01/04/25 10:00: WBC 13.3 H, RBC 3.16 L, Hgb 9.1 L, Hct 28.9 L, MCV 91.5, MCH 28.8, MCHC 31.5 L, RDW Std Deviation 47.0 H, RDW Coeff of Whit 13.8, Plt Count 275, MPV 10.3, Immature Gran % (Auto) 0.500, Neut % (Auto) 75.1 H, Lymph % (Auto) 14.1 L, Evans % (Auto) 10.0, Eos % (Auto) 0.1, Baso % (Auto) 0.2, Absolute Neuts (auto) 10.0 H, Absolute Lymphs (auto) 1.87, Nucleated RBC % 0, PT 18.6 H, INR 1.5, APTT 36.7 H, Sodium 138, Potassium 3.8, Chloride 103, Carbon Dioxide 26.0, Anion Gap 8, BUN 24 H, Creatinine 1.39 H, Est GFR (MDRD) Af Amer 65, Est GFR (MDRD) Non-Af 54 L, BUN/Creatinine Ratio 17.3, Glucose 81, Lactic Acid 1.5, Calcium 9.1, Magnesium 2.1, Total Bilirubin 0.50, AST 29, ALT 34, Alkaline Phosphatase 97, Total Protein 8.3 H, Albumin 2.2 L, Globulin 6.1 H, A lbumin/Globulin Ratio 0.4 L 01/04/25 10:55: Urine Color Yellow, Urine Clarity Sl. Cloudy, Urine pH 6.0, Ur Specific [place] 1.015, Urine Protein 100 H, Urine Glucose (UA) Normal, Urine Ketones 15 H, Urine Occult Blood 250 H, Urine Nitrite Negative, Urine Bilirubin Negative, Urine Urobilinogen 1 H, Ur Leukocyte Esterase 25 H, Urine RBC 25-50 SEEN, Urine WBC 0-5 SEEN, Ur Squamous Epith Cells 0 SEEN, Amorphous Sediment 1+ URATE, Urine Bacteria 0 SEEN, Hyaline Casts 0-5 SEEN, Fine Granular Casts 0-5 SEEN, Coarse Granular Casts 0-5 SEEN, Urine Mucus 0 SEEN 01/05/25 : WBC 12.4 H, RBC 3.02 L, Hgb 8.5 L, Hct 27.4 L, MCV 90.7, MCH 28.1, M CHC 31.0 L, RDW Std Deviation 45.2 H, RDW Coeff of Whit 13.8, Plt Count 256, MPV 10.1, Immature Gran % (Auto) 0.800, Neut % (Auto) 84.6 H, Lymph % (Auto) 7.7 L, Evans % (Auto) 6.7, Eos % (Auto) 0.0, Baso % (Auto) 0.2, Absolute Neuts (auto) 10.5 H, Absolute Lymphs (auto) 0.96, Nucleated RBC % 0, Sodium 140, Potassium 3.9, Chloride 110 H, Carbon Dioxide 24.0, Anion Gap 6, BUN 27 H, Creatinine 1.02, Estim Creat Clear Calc 78.33, Est GFR (MDRD) Af Amer 93, Est GFR (MDRD) Non-Af 77, BUN/Creatinine Ratio 26.5 H, Glucose 121 H, Calcium 8.2 L, TSH 10.900 H, Free T4 1.50 H Clinical Impression(s) from Imaging Studies Chest X-Ray 01/04/25 10:35 IMPRESSION: Progressive rounded pneumonia/mass in the right upper lobe as compared to prior study. Persistent pleural-parenchymal changes at the right lung base with an air-fluid level suggestive of possible either necrosis or cavitation in the right lower lobe. Reading Location: [id number]
[2025-01-06] MEDS: Acetaminophen 500 MG Tablet 1000 MG PO (21:47)
[2025-01-07] VITALS (9 sets, daily range): BP systolic 122–160; BP diastolic 80–84; PULSE 84–104; RESP 16–21; TEMP 36.7–37; O2SAT 92–95
[2025-01-07] MEDS: Cefepime HCl 1 GM in 0.9% Normal Saline (50mL MB+) 50 ML IV ×3 (05:06→23:18)
[2025-01-07] MEDS: metroNIDAZOLE 500 MG/100 ML BAG 100 MG IV ×3 (05:49→23:19)
[2025-01-07 05:58] LABS: Absolute Lymphocyte Count 2.41 X10^3/uL (0.83-4.51); Absolute Neutrophil Count 7.8 X10^3/uL (2.0-7.7); Basophil# 0.07 X10^3/uL; Basophil% 0.6 % (0-1); Eosinophil# 0.04 X10^3/uL; Eosinophils% 0.3 % (0-5); Hematocrit 27.9 % (40-54); Lymphocyte # 2.41 X10^3/ul (0.83-4.51); Lymphocyte % 20.1 % (19-41); Mean Corp Hgb Conc 32.3 g/dL (32-36); Mean Corpuscular Hgb 28.6 pg (27.0-32.0); Mean Corpuscular Volume 88.6 fL (80-94); Mean Platelet Vol. 9.7 fl (6.2-12.0); Monocyte# 1.26 X10^3/uL; Monocyte% 10.5 % (0-10); NRBC Flagged by Analyzer 0 % (0-5); Neutrophil # 7.79 X10^3/uL (2.7-7.7); Neutrophil % 65.2 % (47-70); Platelet Count 327 K/mm3 (150-450); RBC Distribution Width CV 14.3 % (11.6-14.6); RBC Distribution Width SD 46.6 fl (35.1-43.9); Red Blood Count 3.15 M/mm3 (4.6-6.2)
[2025-01-07 06:17] LABS: Anion Gap 6 (5-15); BUN 20 mg/dL (7-18); BUN/Creat Ratio 19.6 RATIO (10-20); Calcium,Total 8.9 mg/dL (8.5-10.1); Chloride 106 mmol/L (98-107); Creatinine, Serum 1.02 mg/dL (0.70-1.30); EST Glomerular Filtration Rate 77 mL/min (>60); Est Glom Filt Rate - Afr Amer 93 mL/min (>60); Estimated Creatinine Clearance 78.33 ml/min; Glucose 89 mg/dL (74-106); Potassium 3.6 mmol/L (3.5-5.1); Sodium Level 138 mmol/L (136-145)
[2025-01-07] MEDS: guaiFENesin/D-Methorphan TAB.SR.12H 2 TABLET PO ×2 (10:26→22:38)
[2025-01-07] MEDS: APIXABAN 5 MG TABLET PO ×2 (10:26→22:38)
[2025-01-07] MEDS: Metoprolol Tartrate 25 MG Tablet PO ×2 (10:26→22:38)
[2025-01-07] MEDS: Vancomycin IV 1,000 MG/200 ML BAG 200 MG IV (10:34)
[2025-01-07] MEDS: Ipratropium/Albuterol Sulfate 3 ML AMPUL.NEB INHALATION ×2 (10:58→20:14)
[2025-01-07] MEDS: 0.9% Saline Lock 10 ML Syringe IV (12:21)
[2025-01-07] MEDS: proCHLORPERazine 10 MG/2 ML Vial 5 MG IV (12:21)
--- NOTE | 2025-01-07 16:12 | PN.HOSP_ITS ---
Reason for Visit Reason for Visit: Diagnoses Paroxysmal atrial fibrillation (01/04/25) Pneumonia, unspecified organism (01/04/25) Shortness of breath (01/04/25) Objective Data Objective Data Vital Signs: Vital Signs Temp Pulse Resp BP Pulse Ox O2 Del Method O2 Flow Rate 98.6 F 96 16 132/80 H 94 Nasal Cannula 2 01/07/25 14:31 01/07/25 14:31 01/07/25 14:31 01/07/25 14:31 01/07/25 14:31 01/07/25 14:31 01/07/25 14:31 Oxygen Flow Rate (L/min) 2 Oxygen Delivery Method Nasal Cannula Weight: 182 lb 12.211 oz Body Mass Index (BMI) 24.0 Intake & Output: Intake and Output for Last 24 Hours 01/05/25 01/06/25 01/07/25 23:59 23:59 23:59 Intake Total 3517.5 / 3517.5 1490 / 1490 940 / 940 Output Total 1225 / 1225 750 / 750 1000 / 1000 Balance 2292.5 / 2292.5 740 / 740 -60 / -60 Lab / Micro Data 01/07/25 05:38 01/07/25 05:38 Labs: Laboratory Results - last 24 hr 01/05/25 : Fluid Source BRONCHIAL LAVAGE, Fluid Color PINK, Fluid Appearance SL CLDY, Fluid WBC 3140, Fluid RBC 550, Fluid Tot Cell Count TNP, Fluid Neutrophils 83, Fluid Other Cells 17, Fl Pathologist Comment May follow 01/07/25 05:38: WBC 12.0 H, RBC 3.15 L, Hgb 9.0 L, Hct 27.9 L, MCV 88.6, MCH 28.6, MCHC 32.3, RDW Std Deviation 46.6 H, RDW Coeff of Whit 14.3, Plt Count 327, MPV 9.7, Immature Gran % (Auto) 3.300 H, Neut % (Auto) 65.2, Lymph % (Auto) 20.1, Mason % (Auto) 10.5 H, Eos % (Auto) 0.3, Baso % (Auto) 0.6, Absolute Neuts (auto) 7.8 H, Absolute Lymphs (auto) 2.41, Nucleated RBC % 0, Sodium 138, Potassium 3.6, Chloride 106, Carbon Dioxide 26.0, Anion Gap 6, BUN 20 H, Creatinine 1.02, Estim Creat Clear Calc 78.33, Est GFR (MDRD) Af Amer 93, Est GFR (MDRD) Non-Af 77, BUN/Creatinine Ratio 19.6, Glucose 89, Calcium 8.9 Micro: Microbiology 01/05/25 Unknown Bronchial Lavage - Right Lower Lobe Gram Stain - Final 01/05/25 Unknown Bronchial Lavage - Right Lower Lobe Respiratory Culture - Preliminary Coag Negative Staph 01/04/25 10:27 Blood Culture (Wb) - Anticubital Right Blood Culture - Preliminary No growth in 48 hours. 01/04/25 10:00 Blood Culture (Wb) - Anticubital Left Blood Culture - Preliminary No growth in 48 hours. 01/04/25 10:55 Urine, Clean Catch Urine Culture - Final Culture exhibits no growth. 01/05/25 09:00 Urine, Clean Catch Legionella Antigen - Final 01/05/25 09:00 Urine, Clean Catch Streptococcus pneumoniae Antigen (M - Final 01/04/25 14:15 Mucosa - Nasopharyngeal Respiratory Panel (PCR) - Final 01/04/25 10:24 Mucosa - Nose SARS-CoV-2, Influenza & RSV (PCR) - Final Rhythm Strip Rhythm Strip: Sinus Tach Rate: 105 Ectopy: None Physical Exam Narrative Seen and examined Did not had fever. No acute symptoms. On 2 L of oxygen. Patient was downgraded from ICU to PCU Shortness of breath and cough has gotten better. Physical exam General: Alert, Oriented x3, Cooperative HEENT: Atraumatic, PERRLA, EOMI, Normocephalic Oral: Oral mucosa dry no Gingival or Mucosal Lesions/ Ulcerations Neck: Supple, No JVD, Negative Carotid Bruits Chest wall/Lungs: Air entry diminished in in both lungs. Bilateral fine wheezing. Cardiovascular: Sinus rhythm, normal S1, Normal S2, No M/G/R Abdomen: Bowel Sounds Present, Soft, Non Tender, Non-Distended : No dysuria. No renal angle tenderness. No suprapubic tenderness. Extremities: No edema, Capillary Refill Less than 3 Seconds Skin: No rashes, No breakdown Musculoskeletal: No Tenderness to Palpation of Joints or Extremities Neurological: Cranial nerves II-XII grossly intact, DTR 2+/4. No acute focal neurological deficit. Psych/Mental Status: Flat affect. Assessment & Plan Assessment/Plan (1) Bilateral pneumonia: (2) Paroxysmal atrial fibrillation with RVR: PLAN: Plan 61-year-old male admitted with high-grade fever, dyspnea at rest, hypoxia and chest and CT findings suggestive of bilateral multifocal pneumonia. Patient had full course of Tamiflu and antibiotic. 1. Bilateral multifocal/multi lobar pneumonia complicated with possibility of either necrosis or cavitation in right lower lobe: CT chest individually reviewed and shows thick consolidation/mass in right upper lobe and right lung base. CT also reported possible either necrosis or cavitation right lower lobe. Small right pleural effusion and trace left pleural effusion. With this finding, bus company manager is consulted. ID also consulted from ER for nonresolving pneumonia. Pneumonia workup ordered. Patient started on IV vancomycin and cefepime and Flagyl. Triple PCR for SARS-CoV-2, flu and RSV are negative. Lactic acid normal. Patient does not meet criteria for sepsis at this point of time. 01/05: Patient respiratory status and shortness of breath is much improved. On 2 L of oxygen. Automobile Rental Agent and ID to see the patient. Continue the above antibiotic 01/06: Bronc cultures are still pending. Gram stain shows 3+ WBC but no organism. Continue broad-spectrum antibiotic. ID is going to see on Wednesday. Plan of management discussed with the patient, his daughter and near the bedside. 01/07: BAL culture shows coagulase-negative staph. Continue broad-spectrum antibiotic. Rest as mentioned above 2. Continued nicotine use/smoking with possibility of undiagnosed COPD/emphysema: Patient started smoking cigarettes about a pack per day since teenage. Currently smokes 4 to 5 cigarettes. On nicotine patch offered. Possible undiagnosed pneumonia. Patient is being managed on scheduled bronchodilator, Mucinex, incentive spirometry and Pep. 3. Paroxysmal A-fib with RVR: Had transient A-fib in 2016 and then came back on past Wednesday. Probably precipitated by pneumonia. On metoprolol and Eliquis. 01/05: Heart rate is controlled. Converted to sinus rhythm. Continue home medication. 4. Possible CKD stage III: Patient had JOSÉ MANUEL during last admission and creatinine was 3.94 which improved to 1.12. Again increased to 1.39. Does not meet criteria for JOSÉ MANUEL. Monitor kidney function. Dr. Velazquez are in normal range. 01/05: BUN/creatinine 27/1.02. 5.. Hypothyroidism-patient is on Synthroid 01/05 TSH 10.9 high. Free T4 1.5. Usually TSH should be suppressed if it is from high dose of Synthroid but it is high. Continue holding Synthroid 01/07: Resume levothyroxine from tomorrow a.m. lower dose 112 mcg daily. Advised repeat thyroid function test in 6 weeks. Living will/advanced directive/end of life care: Patient does not have living will or advanced directive. His present in the ED is the next of kin. After discussion of benefits/risks procedures involved with full code, DNR CC arrest and DNR CC, the patient opted for full code. Patient does want artificial life support including intubation, tube feed, ventilator and/chest compression, central venous catheter, vasopressor and DC shock if needed Clinical Impression(s) from Imaging Studies Chest X-Ray 01/04/25 10:35 IMPRESSION: Progressive rounded pneumonia/mass in the right upper lobe as compared to prior study. Persistent pleural-parenchymal changes at the right lung base with an air-fluid level suggestive of possible either necrosis or cavitation in the right lower lobe. Reading Location: [id number] Charges/Coding Visit Charges Inpatient E&M: 66839 Subs Hosp L2
[2025-01-08] VITALS (8 sets, daily range): BP systolic 117–127; BP diastolic 69–81; PULSE 85–95; RESP 16–18; TEMP 36.2–37.1; O2SAT 91–96
[2025-01-08 00:25] LABS: Vancomycin, Trough Level 16.6 ug/mL (5.0-15.0)
--- NOTE | 2025-01-08 00:47 | PCM.RX.CS ---
Consult Antibiotic Management Pharmacy has been consulted to manage selected antibiotic: Vancomycin Type of Intervention Type of Consult: Follow-up Labs Labs: Sodium 138 mmol/L (136-145) 01/07/25 05:38 Potassium 3.6 mmol/L (3.5-5.1) 01/07/25 05:38 Chloride 106 mmol/L (98-107) 01/07/25 05:38 Carbon Dioxide 26.0 mmol/L (21.0-32.0) 01/07/25 05:38 Anion Gap 6 (5-15) 01/07/25 05:38 BUN 20 mg/dL (7-18) H 01/07/25 05:38 Creatinine 1.02 mg/dL (0.70-1.30) 01/07/25 05:38 Est GFR (MDRD) Af Amer 93 mL/min (>60) 01/07/25 05:38 Est GFR (MDRD) Non-Af 77 mL/min (>60) 01/07/25 05:38 BUN/Creatinine Ratio 19.6 RATIO (10-20) 01/07/25 05:38 Glucose 89 mg/dL (74-106) 01/07/25 05:38 Vancomycin Trough 16.6 ug/mL (5.0-15.0) H 01/07/25 23:45 Microbiology Microbiology: Microbiology 01/05/25 Unknown Bronchial Lavage - Right Lower Lobe Gram Stain - Final 01/05/25 Unknown Bronchial Lavage - Right Lower Lobe Respiratory Culture - Preliminary Coag Negative Staph 01/04/25 10:27 Blood Culture (Wb) - Anticubital Right Blood Culture - Preliminary No growth in 48 hours. 01/04/25 10:00 Blood Culture (Wb) - Anticubital Left Blood Culture - Preliminary No growth in 48 hours. 01/04/25 10:55 Urine, Clean Catch Urine Culture - Final Culture exhibits no growth. 01/05/25 09:00 Urine, Clean Catch Legionella Antigen - Final 01/05/25 09:00 Urine, Clean Catch Streptococcus pneumoniae Antigen (M - Final 01/04/25 14:15 Mucosa - Nasopharyngeal Respiratory Panel (PCR) - Final 01/04/25 10:24 Mucosa - Nose SARS-CoV-2, Influenza & RSV (PCR) - Final Goal Trough Goal Trough: 15-20 mcg/mL Pharmacy Plan for Drug Dosing Pharmacy Plan for Drug Dosing: Pharmacy Service will continue to monitor and adjust dosing as required. TROUGH 16.6 @ 13 HOURS. NO CHANGES, FOLLOW UP TROUGH IN 2 DAYS Follow-Up Labs Follow-Up Labs: Trough: Vancomycin Date/Time Labs Ordered Labs to be done on [date and time ordered]: 01/09 @ 6939
[2025-01-08] MEDS: Vancomycin IV 1,000 MG/200 ML BAG 200 MG IV ×2 (01:21→11:19)
[2025-01-08] MEDS: Levothyroxine 112 MCG Tablet PO (05:28)
[2025-01-08] MEDS: Cefepime HCl 1 GM in 0.9% Normal Saline (50mL MB+) 50 ML IV (05:28)
[2025-01-08] MEDS: metroNIDAZOLE 500 MG/100 ML BAG 100 MG IV (05:28)
[2025-01-08] MEDS: Ipratropium/Albuterol Sulfate 3 ML AMPUL.NEB INHALATION ×2 (07:20→11:24)
[2025-01-08 07:54] LABS: Hematocrit 26.9 % (40-54); Hemoglobin 8.6 g/dL (13.0-16.5); Mean Corpuscular Hgb 28.9 pg (27.0-32.0); Mean Corpuscular Volume 90.3 fL (80-94); Mean Platelet Vol. 9.9 fl (6.2-12.0); POSITIVE COUNT YES; POSITIVE MORPHOLOGY YES; Platelet Count 308 K/mm3 (150-450); RBC Distribution Width CV 14.3 % (11.6-14.6); RBC Distribution Width SD 47.1 fl (35.1-43.9); Red Blood Count 2.98 M/mm3 (4.6-6.2); White Blood Count 13.2 K/mm3 (4.4-11.0)
[2025-01-08 08:00] LABS: Differential Indicated MANUAL DIFF
[2025-01-08 08:23] LABS: Eosinophil 1 % (0-5); Lymphocyte 19 % (19-41); Metamyelocyte 2 % (0-1); Monocyte 6 % (0-10); Myelocyte 3 % (0-0); Neutrophil-Band 2 % (0-5); Neutrophil-Segmented 67 % (47-70); Total Cells Counted 100 (MANUAL DIFF)
[2025-01-08 08:24] LABS: Platelet Estimate ADEQUATE (ADEQ); Red Cell Morphology NORM C+C NORMAL (NORM C&C)
[2025-01-08 08:25] LABS: Absolute Neutrophil Count 9.1 X10^3/uL (2.0-7.7)
[2025-01-08 08:26] LABS: Anion Gap 9 (5-15); BUN 18 mg/dL (7-18); BUN/Creat Ratio 17.6 RATIO (10-20); Calcium,Total 8.6 mg/dL (8.5-10.1); Chloride 105 mmol/L (98-107); Creatinine, Serum 1.02 mg/dL (0.70-1.30); EST Glomerular Filtration Rate 77 mL/min (>60); Est Glom Filt Rate - Afr Amer 93 mL/min (>60); Estimated Creatinine Clearance 78.33 ml/min; Glucose 97 mg/dL (74-106); Potassium 3.5 mmol/L (3.5-5.1); Sodium Level 138 mmol/L (136-145)
[2025-01-08] MEDS: Metoprolol Tartrate 25 MG Tablet PO (08:39)
[2025-01-08] MEDS: guaiFENesin/D-Methorphan TAB.SR.12H 2 TABLET PO (08:39)
[2025-01-08] MEDS: APIXABAN 5 MG TABLET PO (08:39)
--- NOTE | 2025-01-08 11:13 | PCM.CONS.GEN ---
Assessment & Plan Assessment/Plan (1) Bilateral pneumonia: PLAN: Recent flu and spneumo pneumonia. BAL showed rare CoNS, very rare obey. Overall much improved. On vanc/cefepime. Ok for home with 5 days doxy 100mg bid and cefdinir 300mg bid. Will follow, thank you (2) Fever: HPI Consult Data Date of Consult: 01/08/25 HPI Narrative Reason for Consultation: pneumonia HPI Narrative: LUZ MARIA CASTANO, is a 69 M with recent admit for strep pneumo pneumonia s/p flu A. Sent home 12/26. Symptoms worsened with increased sputum, dyspnea, fever. Came back to ED 01/04, admitted on vanc/cefepime/flagyl. Bronch done 01/05, now out of icu, feeling much better. Still on O2. Full ROS performed and neg except as noted above. [facility] Medical History Acute hypoxemic respiratory failure JOSÉ MANUEL (acute kidney injury) Hypoxia Influenza A Tobacco user History of syncope Dyslipidemia Hypertension Home Medications ?Medication ?Instructions ?Recorded ?Last Taken ?Type amlodipine 5 mg tablet 5 mg PO DAILY #30 tabs 12/26/24 01/03/25 Rx apixaban 5 mg tablet (Eliquis) 5 mg PO BID #60 tabs 12/26/24 01/03/25 Rx levothyroxine 137 mcg tablet 137 mcg PO DAILY@0600 #30 tabs 12/26/24 01/04/25 Rx metoprolol tartrate 25 mg tablet 25 mg PO BID #60 tabs 12/26/24 01/03/25 Rx albuterol sulfate 90 mcg/actuation 2 puff inhalation 4X/DAY PRN 01/01/25 Unknown History aerosol inhaler shortness of breath or wheezing cefdinir 300 mg capsule 300 mg PO Q12H #20 caps 01/01/25 01/04/25 Rx vitamins A,C,K-uncw-eaitrp 2,148 1 tab PO DAILY 01/01/25 01/03/25 History mcg-113 mg-45 mg-17.4 mg tablet (Eye Multivitamin) acetaminophen 500 mg tablet 1,000 mg PO Q6H PRN fever 01/04/25 01/04/25 History (Tylenol Extra Strength) Allergy/AdvReac Type Severity Reaction Status Date / Time Penicillins Allergy Unknown Verified 01/04/25 09:01 Cwhhmcy-OJM-MxZ Reductase Allergy Other Verified 01/04/25 09:01 Inhibitor (Nwjsuor-Xan-Ena Reductase Inhibitor) Social History Smoking Status: Current every day smoker tobacco type: cigarettes Physical Exam Const alert, oriented x3 and no apparent distress General Appearance: cooperative HEENT normocephalic and head/scalp atraumatic Eyes PERRL and EOMs intact bilaterally Neck supple and No nodes Resp normal air movement Resp Narrative: L sided rhonchi Cardio regular rate and regular rhythm GI soft to palpation, non-tender and non-distended Extremity General Extremity: Negative for edema Skin no rashes or lesions noted Neuro CN's II-XII intact bilaterally Lab / Micro Data Attestation: I reviewed the patient's lab results. 01/08/25 07:00 01/08/25 07:00 Labs: Laboratory Results - last 24 hr 01/07/25 23:45: Vancomycin Trough 16.6 H 01/08/25 07:00: WBC 13.2 H, RBC 2.98 L, Hgb 8.6 L, Hct 26.9 L, MCV 90.3, MCH 28.9, MCHC 32.0, RDW Std Deviation 47.1 H, RDW Coeff of Whit 14.3, Plt Count 308, MPV 9.9, Neut % (Auto) Not Reportable, Absolute Neuts (auto) 9.1 H, Absolute Lymphs (auto) 2.50, Total Counted 100, Neutrophils % (Manual) 67, Band Neutrophils % 2, Lymphocytes % (Manual) 19, Monocytes % (Manual) 6, Eosinophils % (Manual) 1, Metamyelocytes % 2 H, Myelocytes % 3 H, Diff Path Review May foll, Platelet Estimate ADEQUATE, RBC Morphology NORM C+C, Sodium 138, Potassium 3.5, Chloride 105, Carbon Dioxide 24.0, Anion Gap 9, BUN 18, Creatinine 1.02, Estim Creat Clear Calc 78.33, Est GFR (MDRD) Af Amer 93, Est GFR (MDRD) Non-Af 77, BUN/Creatinine Ratio 17.6, Glucose 97, Calcium 8.6 Micro: Microbiology 01/05/25 Unknown Bronchial Lavage - Right Lower Lobe Gram Stain - Final 01/05/25 Unknown Bronchial Lavage - Right Lower Lobe Respiratory Culture - Preliminary Coag Negative Staph Presumptive C albicans Rhythm Strip Rhythm Strip: Sinus Tach Rate: 105 Ectopy: None
--- NOTE | 2025-01-08 12:53 | PCM.DC ---
Discharge Instructions Diet Discharge Diet: Low fat / Low cholesterol DC O2, CPAP, BIPAP needs Home O2 Discharge instructions: No Dressing / Incision Discharge Activity: Return to Normal Activity Dressing / Incision Call your doctor if you observe: Fever of 101 or Higher, Shortness of breath, Dizziness, Fainting spells, Swelling in the ankles, Chest pain and Increased palpitations (irregular heartbeat) Follow Up Care Test Results: Test results from this visit will be discussed in further detail at your follow-up appointment, if applicable. Discharge Plan Admission Admit Date/Time: 01/04/25 11:19 Attending Provider: Wolf Norman Primary Care Provider: Blane Velasquez Consulting Providers: Jhony Riggs; Carlos Ulloa; Saleem Ashley; Giacomo Jin; Randall Isbell; Chavo Carrizales; Aldair Watson; Kaleb Roque; Nora Garnett; Ramone Lopez; Phani Upton; Bryant Young; Usha Medrano; Huyen Saunders; Pauline Rose; Roderick Coy; Duncan Coreas; Wagner Valderrama; Bernardino Owens; Johan Holbrook; Gera Mcclelland; David Browning; Jacob Cruz; Blane Copeland; Terrence Vines Discharge Orders/Prescriptions Prescriptions: New doxycycline monohydrate 100 mg capsule 100 mg PO BID 5 Days Qty: 10 0RF Continued levothyroxine 137 mcg Tablet 137 mcg PO DAILY@0600 Qty: 30 0RF metoprolol tartrate 25 mg Tablet 25 mg PO BID Qty: 60 0RF Eliquis 5 mg Tablet 5 mg PO BID Qty: 60 0RF amlodipine 5 mg tablet 5 mg PO DAILY Qty: 30 0RF Eye Multivitamin 2,148 mcg-113 mg-45 mg-17.4mg tablet 1 tab PO DAILY Rx Instructions: TOLD PT ONLY TAKE 1 ONCE DAILY albuterol sulfate 90 mcg/actuation HFA aerosol inhaler 2 puff inhalation 4X/DAY PRN (Reason: shortness of breath or wheezing) cefdinir 300 mg capsule 300 mg PO Q12H Qty: 20 0RF acetaminophen [Tylenol Extra Strength] 500 mg tablet 1,000 mg PO Q6H PRN (Reason: fever) Referrals / Follow Up: Randall Isbell DO [Med Staff - Active Staff] - 01/18/25 10:45 am ([facility]) Blane Velasquez MD [Primary Care Provider] - 01/11/25 3:00 pm Disposition Disposition (needs filled in before D/C Order can be placed): Home, Self Care
[2025-01-08] MEDS: Ceftriaxone 2 GM in 0.9% Normal Saline (50mL MB+) 50 ML IV (13:08)
--- NOTE | 2025-01-08 13:38 | CASEMGMT ---
Patient has order for discharge. Patient is maintaining on home oxygen at 2lpm continuously. RN CM in to discuss needs at discharge, at bedside. Patient has portable tank from home for at discharge. Patient and deny further needs or help at discharge. Patient and had no furhter questions or concerns.
[2025-01-08 14:05] LABS: Pathologist Comment/Body Fluid Reviewed
--- NOTE | 2025-01-08 14:13 | PHA.DC.MC.R ---
Pharmacy [facility] has performed discharge medication reconciliation and counseling for this patient. 1. DOXYCYCLINE 100MG PO BID X 5 DAYS The patient's discharge medication list was reviewed for discrepancies and discrepancies were resolved. The patient was counseled on the following discharge medications and changes in medications for homegoing were reviewed. The Reason for Use, instructions for use, and potential side effects were reviewed for all new medications. The patient's questions regarding all of their medications were answered. The patient was able to verbally demonstrate an understanding of their discharge medications. Medications at Discharge Home Medications amlodipine 5 mg tablet 5 mg PO DAILY #30 tabs 12/26/24 apixaban 5 mg tablet (Eliquis) 5 mg PO BID #60 tabs 12/26/24 levothyroxine 137 mcg tablet 137 mcg PO DAILY@0600 #30 tabs 12/26/24 metoprolol tartrate 25 mg tablet 25 mg PO BID #60 tabs 12/26/24 albuterol sulfate 90 mcg/actuation aerosol inhaler 2 puff inhalation 4X/DAY PRN shortness of breath or wheezing 01/01/25 cefdinir 300 mg capsule 300 mg PO Q12H #20 caps 01/01/25 vitamins A,C,W-kvmj-lkgzhc 2,148 mcg-113 mg-45 mg-17.4 mg tablet (Eye Multivitamin) 1 tab PO DAILY 01/01/25 acetaminophen 500 mg tablet (Tylenol Extra Strength) 1,000 mg PO Q6H PRN fever 01/04/25 doxycycline monohydrate 100 mg capsule 100 mg PO BID 5 days #10 caps 01/08/25
[2025-01-08 15:33] LABS: Pathologist Review Reviewed
--- NOTE | 2025-01-08 16:29 | PCM.DC.SUM ---
Providers Date of Admission: 01/04/25 Primary Care Physician: Dr. Blane Velasquez MD Consultations 01/04/25 11:30 Consult: Infectious Disease Routine Consulting Provider: Jhony Riggs Reason for Consult: Non resolving PNeumonia EMERGENT Consult: No Notified: Yes Date Notified: 01/04/25 Time Notified: 11:31 Method of Notification: ED Physician Initiated 01/04/25 15:58 Consult: Wire Photo Operator News / Pulmonary Medicine Routine Consulting Provider: Intensivists/Pulmonary Med Reason for Consult: RLL Cavitary lesion/abscess/necrosis? EMERGENT Consult: No Notified: Yes Date Notified: 01/04/25 Time Notified: 15:58 Method of Notification: Text Reason For Visit: PNEUMONIA WORSENING, HYPOXIA Diagnosis Discharge Diagnosis (1) Bilateral pneumonia: Status: Acute Code(s): J18.9 - Pneumonia, unspecified organism (2) Fever: Status: Acute Code(s): R50.9 - Fever, unspecified Medications at Discharge Home Medications amlodipine 5 mg tablet 5 mg PO DAILY #30 tabs 12/26/24 apixaban 5 mg tablet (Eliquis) 5 mg PO BID #60 tabs 12/26/24 levothyroxine 137 mcg tablet 137 mcg PO DAILY@0600 #30 tabs 12/26/24 metoprolol tartrate 25 mg tablet 25 mg PO BID #60 tabs 12/26/24 albuterol sulfate 90 mcg/actuation aerosol inhaler 2 puff inhalation 4X/DAY PRN shortness of breath or wheezing 01/01/25 cefdinir 300 mg capsule 300 mg PO Q12H #20 caps 01/01/25 vitamins A,C,H-tvri-untpjn 2,148 mcg-113 mg-45 mg-17.4 mg tablet (Eye Multivitamin) 1 tab PO DAILY 01/01/25 acetaminophen 500 mg tablet (Tylenol Extra Strength) 1,000 mg PO Q6H PRN fever 01/04/25 doxycycline monohydrate 100 mg capsule 100 mg PO BID 5 days #10 caps 01/08/25 Hospital Course Operations None Procedures None Summary of Care Provided Minutes Spent on Discharge: 35 Hospital Course: Per HPI: LUZ MARIA CASTANO, is a 69 M who was discharged after 9 days of hospital admission on 12/26/2024 for pneumonia due to acute hypoxic respiratory failure and discharged on home O2 3 L at rest. At that time patient had acute influenza A and was treated with full course of Tamiflu and antibiotic. As per his when he was discharged he was still having a rattling sound in the lung. He felt worse after 3 days of discharge with cough purulent sputum and dyspnea on exertion. On past Wednesday patient was having fever, and requires 6 L of oxygen on exertion along with myalgia and bodyaches and patient was discharged on Eliquis. He did not feel well and was having high-grade fever temperature 103 Fahrenheit therefore came back to ER. Patient has dyspnea at rest. In ED, patient tachycardic but normal blood pressure and required 3 L of oxygen. Chest CT showed scattered bilateral airspace consolidation and nodular groundglass opacities, right worse than left concerning for multifocal pneumonia along with a small pleural effusion. Patient started on broad-spectrum antibiotic vancomycin, cefepime and Flagyl and admitted. Patient also has history of transient A-fib in 2016 and last August he was taken off Eliquis but went into A-fib RVR on past Wednesday. Patient is on Eliquis and metoprolol. Hospital Course: 1. Bilateral multifocal/multi lobar pneumonia complicated with possibility of either necrosis or cavitation in right lower lobe: CT chest individually reviewed and shows thick consolidation/mass in right upper lobe and right lung base. CT also reported possible either necrosis or cavitation right lower lobe. Small right pleural effusion and trace left pleural effusion. With this finding, drum puller is consulted. ID also consulted from ER for nonresolving pneumonia. Pneumonia workup ordered. Patient started on IV vancomycin and cefepime and Flagyl. Triple PCR for SARS-CoV-2, flu and RSV are negative. Lactic acid normal. Patient does not meet criteria for sepsis at this point of time. 01/05: Patient respiratory status and shortness of breath is much improved. On 2 L of oxygen. Wire Photo Operator News and ID to see the patient. Continue the above antibiotic 01/06: Bronc cultures are still pending. Gram stain shows 3+ WBC but no organism. Continue broad-spectrum antibiotic. ID is going to see on Wednesday. Plan of management discussed with the patient, his daughter and near the bedside. 01/07: BAL culture shows coagulase-negative staph. Continue broad-spectrum antibiotic. Rest as mentioned above 01/08/2025: I discussed with him the plan for discharge today he expressed understanding of the risk benefits of going home and would like to go home today. He is only requiring 2 L at rest and with ambulation. He has cefdinir already at home and is only used 4 days prior to his admission so I recommend that he completes those antibiotics on discharge as well as 5 days of doxycycline 100 mg p.o. twice daily per infectious disease. I recommend he follow-up with his PCP as an outpatient. 2. Continued nicotine use/smoking with possibility of undiagnosed COPD/emphysema: Patient started smoking cigarettes about a pack per day since teenage. Currently smokes 4 to 5 cigarettes. On nicotine patch offered. Possible undiagnosed pneumonia. Patient is being managed on scheduled bronchodilator, Mucinex, incentive spirometry and Pep. 3. Paroxysmal A-fib with RVR: Had transient A-fib in 2016 and then came back on past Wednesday. Probably precipitated by pneumonia. On metoprolol and Eliquis. 01/05: Heart rate is controlled. Converted to sinus rhythm. Continue home medication. 4. Possible CKD stage III: Patient had JOSÉ MANUEL during last admission and creatinine was 3.94 which improved to 1.12. Again increased to 1.39. Does not meet criteria for JOSÉ MANUEL. Monitor kidney function. Dr. Velazquez are in normal range. 01/05: BUN/creatinine 27/1.02. 5.. Hypothyroidism-patient is on Synthroid 01/05 TSH 10.9 high. Free T4 1.5. Usually TSH should be suppressed if it is from high dose of Synthroid but it is high. Continue holding Synthroid 01/07: Resume levothyroxine from tomorrow a.m. lower dose 112 mcg daily. Advised repeat thyroid function test in 6 weeks. 01/08/2025: I continued his home Synthroid dose at his previous dosage of 137 as his TSH was high. No T3 was checked during his initial evaluation my concern is there could be decrease in peripheral conversion from T4 to T3, recommend outpatient follow-up Physical Exam Narrative General: Alert, Oriented x3, Cooperative, No apparent distress HEENT: Atraumatic, PERRLA, EOMI, Normocephalic Oral: Moist Mucosa Neck: Supple, No JVD Lungs: Diminished, Normal air movement, No rhonchi, No wheeze, No rales Cardiovascular: Regular rate, Regular Rhythm, Normal S1, Normal S2, No murmurs Abdomen: Soft, Non Tender, Non-Distended, No Hepato-splenomegaly Extremities: No edema, Capillary Refill Less than 3 Seconds Skin: No rashes, No breakdown Musculoskeletal: No Tenderness to Palpation of Joints or Extremities Neurological: No focal neurological deficits, Motor Exam 5/5 strength throughout, Sensory exam intact to light touch and pain Psych/Mental Status: Normal Affect, Appropriate Weight / BMI Weight Weight: 182 lb 12.211 oz Body Mass Index (BMI) 24.0 ABG / Lab / Microbiology Data 01/08/25 07:00 01/08/25 07:00 Laboratory: Laboratory Results - last 24 hr 01/05/25 : Fl Pathologist Comment Reviewed, Miscellaneous Cytology SEE PATHOLOGY REPORT 01/07/25 23:45: Vancomycin Trough 16.6 H 01/08/25 07:00: WBC 13.2 H, RBC 2.98 L, Hgb 8.6 L, Hct 26.9 L, MCV 90.3, MCH 28.9, MCHC 32.0, RDW Std Deviation 47.1 H, RDW Coeff of Whit 14.3, Plt Count 308, MPV 9.9, Neut % (Auto) Not Reportable, Absolute Neuts (auto) 9.1 H, Absolute Lymphs (auto) 2.50, Total Counted 100, Neutrophils % (Manual) 67, Band Neutrophils % 2, Lymphocytes % (Manual) 19, Monocytes % (Manual) 6, Eosinophils % (Manual) 1, Metamyelocytes % 2 H, Myelocytes % 3 H, Diff Path Review Reviewed, Platelet Estimate ADEQUATE, RBC Morphology NORM C+C, Sodium 138, Potassium 3.5, Chloride 105, Carbon Dioxide 24.0, Anion Gap 9, BUN 18, Creatinine 1.02, Estim Creat Clear Calc 78.33, Est GFR (MDRD) Af Amer 93, Est GFR (MDRD) Non-Af 77, BUN/Creatinine Ratio 17.6, Glucose 97, Calcium 8.6 Microbiology: Microbiology 01/08/25 08:30 Sputum, Expectorated/Coughed Gram Stain - Final 01/08/25 08:30 Sputum, Expectorated/Coughed Respiratory Culture - Final 01/05/25 Unknown Bronchial Lavage - Right Lower Lobe Gram Stain - Final 01/05/25 Unknown Bronchial Lavage - Right Lower Lobe Respiratory Culture - Preliminary Coag Negative Staph Presumptive C albicans 01/04/25 10:27 Blood Culture (Wb) - Anticubital Right Blood Culture - Preliminary No growth in 48 hours. 01/04/25 10:00 Blood Culture (Wb) - Anticubital Left Blood Culture - Preliminary No growth in 48 hours. 01/04/25 10:55 Urine, Clean Catch Urine Culture - Final Culture exhibits no growth. 01/05/25 09:00 Urine, Clean Catch Legionella Antigen - Final 01/05/25 09:00 Urine, Clean Catch Streptococcus pneumoniae Antigen (M - Final 01/04/25 14:15 Mucosa - Nasopharyngeal Respiratory Panel (PCR) - Final 01/04/25 10:24 Mucosa - Nose SARS-CoV-2, Influenza & RSV (PCR) - Final D/C Instructions Discharge Diet: Low fat / Low cholesterol Call your doctor if you observe: Fever of 101 or Higher, Shortness of breath, Dizziness, Fainting spells, Swelling in the ankles, Chest pain and Increased palpitations (irregular heartbeat) DC O2, CPAP, BIPAP Needs Home O2 Discharge instructions: No Meaningful Use Info Meaningful Use Meaningful Use Diagnoses (Choose all that apply): None applicable Ischemic Stroke Statin Dosing Therapy Reference: STATIN DOSE THERAPY REFERENCE: * Patients > 75 years receive moderate or high dose statin therapy. * Patients 75 years or YOUNGER should receive HIGH intensity statin dose unless contraindicated. You will be required to document reason for non-treatment if statin daily dose does not meet guidelines. HIGH DOSE STATIN THERAPY DAILY Atorvastatin > than or = to 40 mg Rosuvastatin > than or = to 20 mg Amlodipine + Atorvastatin > than or = to 2.5/40 mg Ezetimibe + Simvastatin 10/80 mg Simvastatin 80mg Discharge Plan Admission Admit Date/Time: 01/04/25 11:19 Attending Provider: Wolf Norman Primary Care Provider: Blane Velasquez Consulting Providers: Jhony Riggs; Carlos Ulloa; Saleem Ashley; Giacomo Jin; Randall Isbell; Chavo Carrizales; Aldair Watson; Kaleb Roque; Nora Garnett; Ramone Lopez; Phani Upton; Bryant Young; Usha Medrano; Huyen Saunders; Pauline Rose; Roderick Coy; Duncan Coreas; Wagner Valderrama; Bernardino Owens; Johan Holbrook; Gera Mcclelland; David Browning; Jacob Cruz; Blane Copeland; Terrence Vines Discharge Orders/Prescriptions Prescriptions: New doxycycline monohydrate 100 mg capsule 100 mg PO BID 5 Days Qty: 10 0RF Continued levothyroxine 137 mcg Tablet 137 mcg PO DAILY@0600 Qty: 30 0RF metoprolol tartrate 25 mg Tablet 25 mg PO BID Qty: 60 0RF Eliquis 5 mg Tablet 5 mg PO BID Qty: 60 0RF amlodipine 5 mg tablet 5 mg PO DAILY Qty: 30 0RF Eye Multivitamin 2,148 mcg-113 mg-45 mg-17.4mg tablet 1 tab PO DAILY Rx Instructions: TOLD PT ONLY TAKE 1 ONCE DAILY albuterol sulfate 90 mcg/actuation HFA aerosol inhaler 2 puff inhalation 4X/DAY PRN (Reason: shortness of breath or wheezing) cefdinir 300 mg capsule 300 mg PO Q12H Qty: 20 0RF acetaminophen [Tylenol Extra Strength] 500 mg tablet 1,000 mg PO Q6H PRN (Reason: fever) Referrals / Follow Up: Randall Isbell DO [Med Staff - Active Staff] - 01/18/25 10:45 am (Outpatient [place]) Blane Velasquez MD [Primary Care Provider] - 01/11/25 3:00 pm Disposition Disposition (needs filled in before D/C Order can be placed): Home, Self Care Charges/Coding Visit Charges Inpatient E&M: 30685 Disch Hosp >30min
== END 2025-01-08 14:14 | disposition home or self-care (01) | DRG 871 ==
LOC: ED 11:39 → ICU 13:17 → PCU 01-05 21:39
PROVIDERS: Internal Medicine Critical Care Medicine; Admitting Provider Internal Medicine; Emergency Provider Emergency Medicine; PCP Family Medicine; Visit Provider Family Medicine
PROC: 0BJ08ZZ Inspection of Tracheobronchial Tree, Via Natural or Artificial Opening Endoscopic (ICD-10-PCS; CPT 31622; principal; 2025-01-05 09:45)
DX: A41.1 Sepsis due to other specified staphylococcus (principal); J85.1 Abscess of lung with pneumonia; B37.1 Pulmonary candidiasis; J15.29 Pneumonia due to other staphylococcus; J90 Pleural effusion, not elsewhere classified; J43.9 Emphysema, unspecified; N18.30 Chronic kidney disease, stage 3 unspecified; E03.9 Hypothyroidism, unspecified; I12.9 Hypertensive chronic kidney disease with stage 1 through stage 4 chronic kidney disease, or unspecified chronic kidney disease; I48.0 Paroxysmal atrial fibrillation; E78.5 Hyperlipidemia, unspecified; F17.210 Nicotine dependence, cigarettes, uncomplicated; B37.7 Candidal sepsis; Z23 Encounter for immunization; Z11.52 Encounter for screening for COVID-19; R09.02 Hypoxemia; Z79.890 Hormone replacement therapy; Z79.01 Long term (current) use of anticoagulants; Z79.899 Other long term (current) drug therapy
CPT/HCPCS: 36415; 71046; 71250; 80048; 80053; 80202; 81001; 83605; 83735; 84439; 84443; 85025; 85610; 85730; 87015; 87040; 87070; 87077; 87086; 87116; 87205; 87206; 87252; 87278; 87449; 87631; 87633; 88108; 88305; 88312; 88313; 89050; 90662; 92610; 93005; 94640; 94668; 94760; 99252; 99283; 99285; 99406; A4216; G0463; J0696